=== PATIENT | male | born 1960 | race Caucasian/White ===

== ENCOUNTER 2018-06-10 04:33 | Inpatient (IN) ==
[2018-06-10] MEDS ORDERED: LIDOCAINE W/ SODIUM BICARB 0.5 ML SYR SUBD ONE (06:00)
[2018-06-10] MEDS ORDERED: Lactated Ringers 1,000 ML PRIMARY IV ONE ×3 (06:00→12:39)
[2018-06-10] MEDS ORDERED: Nasal Sanitizer POPSWAB ampule 3 AMP (Nozin) PREOP DOSE ENOS SCH (06:00)
[2018-06-10] MEDS ORDERED: ceFAZolin Inj 2gm (Premix) 2 GM/50 ML BAG IV ONE ×2 (06:00→06:04)
[2018-06-10] MEDS ORDERED: Vancomycin Inj 1gm vial ONE (06:04)
[2018-06-10] MEDS ORDERED: LIDOCAINE W/ SODIUM BICARB 0.5 ML SYR ONE (06:04)
[2018-06-10] MEDS ORDERED: Sodium Chloride 0.9% 250 ML ONE (06:05)
[2018-06-10 06:20] LABS: BILIRUBIN,URINE NEGATIVE (NEG); CLARITY,URINE CLEAR (CLEAR); COLOR,URINE YELLOW (Y); GLUCOSE, URINE (UA) NEGATIVE (NEG); OCCULT BLOOD,URINE NEGATIVE (NEG); PROTEIN,URINE NEGATIVE (NEG); UROBILINOGEN,URINE 0.2 EU/dL (0.2)
[2018-06-10 06:22] LABS: URINE SAMPLE TYPE CLEAN CATCH URINE
[2018-06-10] MEDS ORDERED: HYDROmorphone 2 MG/1 ML ONE ×4 (07:13→15:06)
[2018-06-10] MEDS ORDERED: Sodium Chloride 0.9% vial 10 ML ONE ×3 (07:32→13:32)
[2018-06-10] MEDS ORDERED: BACITRACIN 50,000 UNIT VIAL IRRIG ONE ×3 (07:32→13:32)
[2018-06-10] MEDS ORDERED: KETAMINE HCL 100 MG/2 ML SYRINGE IV ONE (07:34)
[2018-06-10] MEDS ORDERED: REMIFENTANIL 1 MG/1 ML IV ONE (07:34)
[2018-06-10] MEDS ORDERED: fentaNYL Inj 100 MCG/2 ML VIAL ONE ×2 (07:35→14:38)
[2018-06-10] MEDS ORDERED: MIDAZOLAM HCL 2 MG/2 ML VIAL ONE (07:35)
[2018-06-10] MEDS ORDERED: Propofol 1,000 MG/100 ML VIAL IV ONE ×4 (07:35→12:23)
[2018-06-10] MEDS ORDERED: REMIFENTANIL HCL 2 MG VIAL IV ONE ×3 (07:35→13:00)
[2018-06-10] MEDS ORDERED: BUPIVACAINE 0.25% W/ EPI - 10 ML VIAL ONE (07:36)
[2018-06-10] MEDS ORDERED: LIDOCAINE HCL 2 % 10 ML JELLY URO-JECT TOPICAL ONE ×2 (08:08→08:20)
[2018-06-10] MEDS ORDERED: TRANEXAMIC ACID 1,000 MG / 10 ML VIAL ONE (10:45)
[2018-06-10] MEDS ORDERED: PROPOFOL 10 MG/1 ML (200 MG/20 ML) VIAL IV ONE (13:15)
[2018-06-10] MEDS ORDERED: PROMETHAZINE 25 MG/1 ML VIAL IM PRN ×2 (14:19→15:42)
[2018-06-10] MEDS: HYDROmorphone 2 MG/1 ML IVP PRN ×8 (14:19→15:12)
[2018-06-10] MEDS ORDERED: ONDANSETRON 4 MG/2 ML VIAL IVP PRN ×2 (14:19→15:42)
[2018-06-10] MEDS ORDERED: LIDOCAINE W/ SODIUM BICARB 0.5 ML SYR SUBD PRN (14:19)
--- NOTE | 2018-06-10 14:20 | CRNA.PROGR ---
Anesthesia Recovery Phase I - Post Anesthesia Evaluation Patient's Condition on Arrival in Phase I: Stable Pain Level: 5
--- NOTE | 2018-06-10 14:20 | CRNA.PROGR ---
Anesthesia Time - Procedure/Recovery Time Start Date: 06/10/18 End Date: 06/10/18 Anesthesia : Time In: 07:55 Anesthesia : Time Out: 14:13 Anesthesia : Total Time: 378 - Total Anesthesia Time Total Anesthesia Time (minutes): 378 - Other Weight: 104.326 kg Height: 5 ft 10 in Body Mass Index (BMI): 33.0 Physical Status: P3 Anesthesia Type: General Anesthesia : ET
[2018-06-10] MEDS ORDERED: Lactated Ringers 1,000 ML PRIMARY IV SCH (14:30)
[2018-06-10] MEDS: fentaNYL Inj 100 MCG/2 ML VIAL IVP PRN ×2 (14:37→14:42)
[2018-06-10] MEDS ORDERED: BISACODYL 5 MG TABLET PO PRN (15:42)
[2018-06-10] MEDS ORDERED: Vancomycin-PHA to Dose IV SCH (15:42)
[2018-06-10] MEDS ORDERED: Prochlorperazine Edisylate Inj 10mg/2ml vial IVP PRN (15:42)
[2018-06-10] MEDS ORDERED: Metoclopramide Inj 10 MG/2 ML VIAL IVP PRN (15:42)
[2018-06-10] MEDS ORDERED: oxyCODONE/APAP 7.5/325 Tab 1 TAB TAB PO PRN (15:42)
[2018-06-10] MEDS ORDERED: Ondansetron ODT Tab 4 MG TAB PO PRN (15:42)
[2018-06-10] MEDS ORDERED: Fleet Enema 133ml RECTAL PRN (15:42)
[2018-06-10] MEDS ORDERED: HYDROcodone-APAP 7.5 MG-325 MG TABLET PO PRN (15:42)
[2018-06-10] MEDS ORDERED: oxyCODONE-ACETAMINOPHEN 5-325 TAB PO PRN (15:42)
[2018-06-10] MEDS ORDERED: MAGNESIUM CITRATE 296 ML SOLUTION PO PRN (15:42)
[2018-06-10] MEDS ORDERED: DOCUSATE 100 MG CAPSULE PO PRN (15:42)
[2018-06-10] MEDS ORDERED: MAGNESIUM 400 MG/5 ML - 30 ML (MILK OF MAGNESIA) PO PRN (15:42)
[2018-06-10] MEDS ORDERED: HYDROcodone-APAP 5 MG -325 MG TABLET PO PRN (15:42)
[2018-06-10] MEDS: ceFAZolin Inj 1 GM in Sodium Chloride 0.9% 100 ML IV SCH (16:51)
[2018-06-10] MEDS: HYDROcodone-APAP 10 MG-325 MG TABLET PO PRN ×2 (16:51→20:50)
--- NOTE | 2018-06-10 18:31 | GEN.OPNOTE ---
Operative Note Surgery Date: 06/10/18 Preoperative Diagnosis: 1. Chronic neck pain status post a fall. 2. Multilevel cervical degenerative disc disease advanced at C5-6, C6-7 and C7-T1. 3. Multilevel cervical spondylosis advanced C3-4 on the right, C4-5 on the left, moderate in degree at C5-6 and C6-7 bilaterally and advanced C7-T1. bilaterally. 4. Prominent diffuse disc/osteophyte complexes C3-4, C4-5, and C5-6. 5. Central canal stenosis C3-4, C4-5, and C5-6. 6. Bilateral C3-4, C4- 5, and C5-6 neuroforaminal stenosis. 7. Loss of normal cervical lordosis. Postoperative Diagnosis: 1. Chronic neck pain status post a fall. 2. Multilevel cervical degenerative disc disease advanced at C5-6, C6-7 and C7-T1. 3. Multilevel cervical spondylosis advanced C3-4 on the right, C4-5 on the left, moderate in degree at C5-6 and C6-7 bilaterally and advanced C7-T1. bilaterally. 4. Prominent diffuse disc/osteophyte complexes C3-4, C4-5, and C5-6. 5. Central canal stenosis C3-4, C4-5, and C5-6. 6. Bilateral C3-4, C4- 5, and C5-6 neuroforaminal stenosis. 7. Loss of normal cervical lordosis. Procedure: 1.) Arthrodesis, anterior cervical, with discectomy, osteophytectomy, and foraminotomies bilaterally with removal of the posterior longitudinal liga ment, and disc space preparation for fusion of the interspace, C3-4. (CPT code: 38617). 2.) Arthrodesis, anterior cervical, with discectomy, osteophytectomy and foraminotomies bilaterally with removal of the posterior longitudinal ligament with decompression of central canal and bilateral neuroforaminal stenosis and disc space preparation for fusion of the interspace, C4-5. (CPT code: 80661). 3.) Arthrodesis, anterior cervical, with discectomy, osteophytectomy and foraminotomies bilaterally with removal of the posterior longitudinal ligament with decompression of central canal and bilateral neuroforaminal stenosis and disc space preparation for fusion of the interspace, C5-6. (CPT code: 00168). 4.) Insertion of a 7mm x 14mm x 17mm 6-degree lordotic Alcon Tritanium C titanium anterior cervical cage filled in the center with Alcon BIO DBM Putty (allograft) into the C3-4 interspace for fusion of the C3-4 interspace. (CPT code: 70799). 5.) Insertion of a 8mm x 14mm x 17mm 6-degree lordotic Alcon Tritanium C titanium anterior cervical cage filled in the center with Alcon BIO DBM Putty (allograft) into the C4-5 interspace for fusion of the C4-5 interspace. (CPT code: 54584). 6.) Insertion of a 7mm x 14mm x 17mm 6-degree lordotic [place] Tritanium C titanium anterior cervical cage filled in the center with [place] BIO DBM Putty (allograft) into the C5-6 interspace for fusion of the C5-6 interspace. (CPT code: 42229). 7.) Anterior cervical plating, C3-7 using a 4 level, 10 hole, 72 mm [place] Aviator titanium anterior cervical plate affixed to the C3 vertebral body with 4.0 mm x 16 mm variable angle titanium anterior cervical screws, to the C4 vertebral body using 4.0 mm x 14 mm variable angle titanium anterior cervical screws, to the C5 vertebral body using a 4.0 mm x 14 mm variable angle titanium anterior cervical screws, and to the C7 vertebral body using 4.0 mm x 16 mm fixed angle titanium anterior cervical screws. (CPT code: 33802). 8.) Use of 5 cc of [place] BIO DBM Putty (implantable allograft) for filling of the anterior cervical cages. (CPT code: 99283). 9.) Use of the operative microscope for the microsurgical techniques used for the C3-4, C4-5, and C5-6 discectomies and foraminotomies. (CPT code: 83890). 10.) Use of intra-operative fluoroscopy for location of the correct surgical levels and for confirmation of the final position of the intervertebral cages and final confirmation of the position of the anterior cervical hardware elements. 11.) Use of intra-operative neuromonitoring including EMG's, SSEP's, and MEP's. Surgeon: Raheem Hodgson MD Locomotive Boilermaker: JAZZ Kaur Anesthesia Provider: Mack Rocha CRNA Anesthesia Type: General Estimated Blood Loss (mL): 100 Fluids: See anesthesia record Pathology: None Indications: Mr. Mathews is a 57-year-old gentleman well known to me from my previous [facility] practice. Mr. Mathews has had chronic low back pain for many years and has undergone several back surgeries that I performed as well as a dorsal column stimulator placement that Dr. Shabazz performed. Mr. Mathews fell off a ladder on the beginning of February. He states that he landed on his back. He did not go to the emergency department to be evaluated. Since this fall, he continues to have neck pain, mid back pain and low back pain. He had cervical radiographic images that demonstrated marked degenerative changes of the cervical spine, but with no evidence of acute injury or fracture. Mr. Mathews had a cervical myelogram with post myelogram CT that demonstrated multilevel cervical degenerative disc disease most advanced at C5-6, C6-7 and C7-T1. The study demonstrated multilevel cervical spondylosis with marked facet arthropathy and hypertrophy at C3-4 on the right, C4-5 on the left and then to a lesser extent at C5-6 and C6-7 bilaterally and severe facet arthropathy at C7- T1. Since Mr. Mathews's symptoms had failed expectant management and non-operative therapies, we had discussed the option of proceeding with a staged anterior/posterior cervical procedure because of his extensive degenerative changes. We discussed proceeding with a C3-4, C4-5, C5-6, and possible C6-7 anterior cervical discectomy and fusion followed by a C3- T3 posterior cervical instrumented fusion. He wished to proceed with the surgical procedure. Findings: 1.) Extensive disc/osteophyte complexes C3-4, C4-5, and C5-6. 2.) Central canal and bilateral lateral recess stenosis C3-4, C4-5, C5-6. 3.) Completely collapsed C6-7 disc interspace. Complications: None Operative Summary: Mr. Mathews was met in the preoperative area. His surgical history and physical in his chart was reviewed. We reviewed the procedure to be performed and we were in agreement on the procedure to be performed and this matched what was written on the patient's consent form. Any questions that Mr. Mathews had were answered before he was taken back to the operating room suite. Mr. Mathews was brought back to the operating room suite. He was moved over onto the surgical bed in supine position. General anesthesia was induced by the anesthesia staff and he was intubated by the anesthesia staff. His head was placed on a gel ring and rolled up surgical towels were placed in the intrascapular area and under his shoulders bilaterally. A Thomson catheter was placed in his bladder for the procedure. He had pneumatic compression hose placed on his lower legs bilaterally. His arms were gently tucked at his sides. All bony prominences were well padded. His Thomson catheter was checked to be free from kinks. His pneumatic compression hose were attached to a pneumatic compression devise. The C-arm fluoroscopy unit was used to help localize the skin incision for the approach to the intended surgical level. The skin was marked along the medial border of the sternocleidomastoid muscle with a skin marker. Mr. Mathews was prepped and draped in the usual and standard fashion. He was given 2 g of Ancef and a gram of vancomycin IV for perioperative antibiosis. He was given 10 mg of Decadron IV. A standard surgical timeout was performed identifying the correct patient, the correct procedure, and the correct equipment being available for the procedure. The intended skin incision was injected subcutaneously with quarter percent Marcaine with 1 in 200,000 epinephrine. The skin was incised with a 10 blade scalpel and all dermal and superficial bleeding points controlled with bipolar cautery. Dissection was continued down through the subcutaneous tissue to the level of the platysma muscle. The platysma muscle was incised with the Metzenbaum scissors in the direction of the skin incision. This allowed identification the medial border of the sternocleidomastoid muscle. Further dissection identified the omohyoid muscle which was circumferentially dissected out, tagged with two 0-Silk suture and then cut with a Metzenbaum scissors with the muscle stumps retracted with snaps attached to the sutures. Continued dissection was performed medial to the sternocleidomastoid muscle in both a sharp and blunt fashion down to the pre-vertebral fascia. The carotid artery was palpated to be lateral to the dissection plane. Cloward hand-held retractors were used to retract and protect the soft tissues while the prevertebral fascia was dissected with a Kitner instrument. Once a disc space became exposed a bent spinal needle was placed into the disc space and the level was localized as the C4-5 level with lateral fluoroscopy. Continued dissection of the prevertebral fascia was performed exposing the C3, C4, C5, C6, and C7 vertebral bodies. The medial border of the longus coli muscle was dissected with Bovie cautery with insulated tip turned down to a low setting from C3-C7 bilaterally. The hand-held Cloward retractors were then replaced with the Team Member self-retaining retractor system which was first placed at the C3-4 level to expose this level and protect the soft tissues at this level. A 14 mm distraction pin was placed into the C3 vertebral body and another was placed into the C4 vertebral body. The operative microscope was brought into the surgical field and used for microsurgical techniques used for the C3-4 discectomy. An annulotomy was performed with a 15 blade scalpel and disc material was removed with a pituitary rongeur. Additional disc and cartilaginous endplate was loosened in the disc space using a small straight curette with the fragments being removed with a pituitary rongeur. The high-speed [x+1] Donovan drill with a matchstick bit was used to perform arthrodesis/decortication of the C3 and C4 endplates preparing the endplates for fusion. The same drill with the same bit was used to drill away the prominent diffuse osteophytes along the posterior inferior aspect of the C3 vertebral body and the posterior superior aspect of C4 vertebral body as well as the uncovertebral joints bilaterally which were hypertrophied bilaterally. Foraminotomies were performed bilaterally with the same drill with same bit. A nerve hook was used to define the plane between the posterior longitudinal ligament and the dura. The posterior longitudinal ligament was completely removed with small Kerrison punches. The same instruments were used to extend the foraminotomies bilaterally that had been started with the high-speed drill with a matchstick bit. Excellent decompression of the spinal canal, neuroforamen, and exiting nerve roots was assured both by visual inspection as well as by palpation with a nerve hook underneath the vertebral bodies and out the neuroforamen bilaterally. The interspace was irrigated with bacitracin irrigation. FloSeal hemostatic agent was placed over all exposed dural elements. The interspace was sized the appropriate size anterior cervical cage. A 7 mm x 14 mm x 17 mm 6-degree lordotic Tritanium C titanium anterior cervical cage was selected and filled in the center with [place] BIO DBM Putty (implantable allograft) and then inserted into the C3-4 interspace with the care management specialist. The cage was gently countersunk with a bone tamp and mallet. The cage obtained good purchase between the C3 and C4 endplates. The final position of the cage was confirmed with lateral fluoroscopy. The C3 Rosalia distraction pin was removed and bony bleeding was controlled with FloSeal and a surgical teo. The Team Member self-retaining retractor system was removed and placed across the C4-5 level for the exposure this level and the protection of the soft tissues at this level. The Rosalia distraction pin was placed into the C5 vertebral body. The operative microscope was used for this microsurgical techniques used for the C4-5 discectomy. An annulotomy was performed with a 15 blade scalpel and disc material was removed with a pituitary rongeur. Additional disc and cartilaginous endplate was loosened in the disc space using a small straight curette with the fragments being removed with a pituitary rongeur. The high- speed [x+1] Donovan drill with a matchstick bit was used to perform arthrodesis/decortication of the C4 and C5 endplates preparing the endplates for fusion. The same drill with the same bit was used to drill away with diffuse, prominent osteophytes along the posterior inferior aspect of the C4 vertebral body and the posterior superior aspect of the C5 vertebral body as well as to drill away the uncovertebral joint hypertrophy bilaterally. Foraminotomies were performed bilaterally with the same drill with the same bit. A nerve hook was used to define the plane between the posterior longitudinal ligament and the dura. The posterior longitudinal ligament was completely removed with small Kerrison punches. The same instruments were used to extend the foraminotomies bilaterally that had been started with the high-speed drill with a matchstick bit. Excellent decompression of the spinal canal, neuroforamen, and exiting nerve roots was assured both by visual inspection as well as by palpation with a nerve hook underneath the vertebral bodies and out the neuroforamen bilaterally. The interspace was irrigated with bacitracin irrigation. FloSeal hemostatic agent was placed over all exposed dural elements. The interspace was sized the appropriate size anterior cervical cage. A 8 mm x 14 mm x 17 mm 6-degree Alcon Tritanium C titanium anterior cervical cage was selected and filled in the center with [place] BIO DBM Putty (implantable allograft) and then inserted into the C4-5 interspace with the i nserter. The cage was gently countersunk with a bone tamp and mallet. The cage obtained good purchase between the C4 and C5 endplates. The final position of the cage was confirmed with lateral fluoroscopy. The C4 Rosalia distraction pin was removed and bony bleeding was controlled with FloSeal and a surgical teo. The Team Member self-retaining retractor system was removed and placed across the C5-6 level for the exposure this level and the protection of the soft tissues at this level. The Rosalia distraction pin was placed into the C6 vertebral body. The operative microscope was used for this microsurgical techniques used for the C5-6 discectomy. An annulotomy was performed with a 15 blade scalpel and disc material was removed with a pituitary rongeur. Because of the degree of disc space collapse at this level the high-speed [x+1] Donovan drill with a matchstick bit was used to perform the remainder of the discectomy at this level as well as to arthrodes/decorticate the C5 and C6 endplates preparing the endplates for fusion. The same drill with the same bit was used to drill away with diffuse, very prominent osteophytes along the posterior inferior aspect of the C5 vertebral body and the posterior superior aspect of the C6 vertebral body as well as to drill away the uncovertebral joint hypertrophy bilaterally. Foraminotomies were performed bilaterally with the same drill with the same bit. At this level the posterior aspect of the annulus which was partially calcified and adherent to the posterior longitudinal ligament was tediously dissected from the ligament. On attempts to define a plane between the ligament and the dura, they as well appeared to be adherent to each other as well with no plane being able to be established despite multiple careful attempts. It was decided to leave the thinned ligament without further attempts to try to remove it as at this point with all of the disc and partially calcified annulus removed the canal appeared to be very well decompressed despite leaving some ligament. This was assured by visual inspection as well as by palpation with a nerve hook underneath the vertebral bodies and out the neuroforamen bilaterally. The interspace was irrigated with bacitracin irrigation. FloSeal hemostatic agent was placed over all exposed dural elements. The interspace was sized the appropriate size anterior cervical cage. A 7 mm x 14 mm x 17 mm 6-degree [place] Tritanium C titanium anterior cervical cage was selected and filled in the center with Alcon BIO DBM Putty (allograft) and then inserted into the C5-6 interspace with the care management specialist. The cage was gently countersunk with a bone tamp and mallet. The cage obtained good purchase between the C5 and C6 endplates. The final position of the cage was confirmed with lateral fluoroscopy. The Rosalia distraction pins in the C5 vertebral body was removed. Bony bleeding was controlled FloSeal and surgical patties. Hand held retractors were used and the C6-7 level was inspected. There was a large anterior osteophyte complex across this level that was removed with a large Leksell rongeur. Upon inspection of the interspace at this level it was completely collapsed with the endplates apposed. Re-inspection of the imaging demonstrated this level to be fusing across the facet joint on the left. It was decided at this point not try to recreate a disc space that essentially no longer existed, but it was decided to plate across the C6-7 interspace to provide better anterior rigidity anteriorly with the plan of still fusing and instrumenting this level posteriorly in the second stage of the procedure. The Team Member self-retaining retractor system was removed and placed in the center portion of the surgical dissection to provide the proper exposure needed for the instrumentation portion of the procedure. Any remaining C3, C4, C5, C6, and C7 anterior osteophytes were removed with the large Leksell rongeur as well as with the high speed drill with the matchstick bit. The appropriate size anterior cervical plate was selected both by visual inspection as well as by lateral fluoroscopy. A 4 level, 10 hole, 72 mm Alcon Aviator titanium anterior cervical plate was selected and affixed to the C3 vertebral body using 4.0 mm x 16 mm variable angle titanium anterior cervical screws, and to the C4 and C5 vertebral bodies using 4.0 mm x 14 mm variable angle titanium anterior cervical screws, and to the C7 vertebral body using 4.0 mm x 16 mm fixed angle titanium anterior cervical screws. No screws were able to be placed into the C6 vertebral body secondary the the screw holes at this level being directly over the C5-6 cage. All screws placed obtained good purchase in the vertebral body bone. The locking mechanism was then deployed at each level and visual inspection confirmed that the locking mechanism deployed across each of the screw heads at each level bilaterally. The Team Member self- retaining retractor system was removed from the surgical site. Final AP and lateral fluoroscopic images were obtained. The goddard of the dissection plane were inspected for any bleeding points. Any identified were coagulated with bipolar cautery. The surgical site was copiously irrigated with bacitracin irrigation allowing the irrigant to sit to again inspect for any bleeding points with none identified. A medium FRANCESCO drain was placed into the surgical site. The closure portion of the procedure was begun. The omohyoid muscle was re-approximated by the 0-Silk suture attached to the muscle stumps. The platysmal muscle was reapproximated with 3-0 Vicryl suture in an interrupted fashion. The dermis and superficial subcutaneous tissue was reapproximated with 3-0 Vicryl suture in an inverted interrupted fashion. The incision was cleansed with a bacitracin soaked sponge and dried with a sterile dry sponge. Steri-Strips were placed across the incision. The incision was dressed with a Covaderm dressing. The surgical drain was secured with suture. The drain site was dressed. All surgical drapes removed from Mr. Mathews. He was carefully moved over onto the PACU stretcher. He was awoken and extubated by the anesthesia staff. He was taken to the recovery room in stable condition. All surgical counts reported as correct by the scrub and circulating personnel. A physicians bacteriology research assistant, Ms. Michelle Khan PA-C, assisted with the procedure including the exposure and closure portions of the procedure. She also provided irrigation and suctioning throughout the procedure.
[2018-06-10] MEDS: CYCLOBENZAPRINE 10 MG TABLET PO PRN (18:54)
[2018-06-10] MEDS ORDERED: GABAPENTIN 400 MG CAPSULE PO ONE (19:08)
--- NOTE | 2018-06-10 19:40 | NEURO.PROG ---
Subjective Post Op Day: 0 Pain Management: PO Thomson Catheter: Yes Diet: Controlled carbohydrate Ambulating: Yes Additional Details: Awake and alert in med/surg room. Complaint of post-surgical pain. No complaint of any new arm symptoms. Can raise arms and place hands on head easily and can raise hands and arms straight up in the air. PLAN: 1.) Continue post-operative antibiotics. 2.) Continue post-operative pain control. 3.) Advance diet. 4.) Mobilize. Objective : Data - Vital Signs Vital Signs and I&O: Vital Signs - Last Taken Temperature 97.9 F 06/10/18 18:20 Pulse Rate 94 06/10/18 18:20 Respiratory Rate 12 06/10/18 18:20 Blood Pressure 127/85 06/10/18 18:20 Pulse Ox 95 06/10/18 18:20 Intake and Output (24hr x 4 totals) 06/08/18 06/09/18 06/10/18 06/11/18 05:59 05:59 05:59 05:59 Intake Total 3050 / 3050 Output Total 2975 / 2975 Balance 75 / 75
--- NOTE | 2018-06-10 20:36 | PDOC ---
HPI - History of Present Illness Date of Service: 06/10/18 Time of Service: 20:33 Chief Complaint: Neck pain History of Present Illness: This very pleasant 57-year-old male with prior history of diabetes resolved post gastric bypass 5 years ago, GERD, and chronic pain syndrome with neck and back pain. He had an accident in February of this year and his neck pain has been significantly exacerbated. Had significant degenerative changes in the neck, and presented today for an ACDF performed by Dr. Hodgson. See his surgical note regarding the procedure performed. Postoperatively, the patient denies chest pain, shortness breath, nausea or vomiting. His pain is been somewhat difficult to control. There've been no exacerbations of medical issues. He'll be doing a posterior approach for C3-T3 fusion on 06/12/2018. He tells me in terms of his gastric bypass that he is on a multivitamin daily and that is B12 level recently checked out okay. Past Medical History Medical History: 1. chronic neck and back pain. 2. DMII. 3. s/p gastric bypass. 4. GERD Surgical History: 1. lumbar surgery. 2. gastric bypass. 3. Spinal nerve stimulator. Pertinent Family History: Significant for diabetes and heart disease in his mother who passed on from that. Father still alive healthy. Past Social History: Hx of smoking, occasional alcohol, cannot work and is disabled. . Has 12 children, all of whom he states are healthy. Lives in [place], [place]. Tobacco Use: Former Smoker In the Past 12 Months, Have Used or Abuse Any of the Following Substance: None Alcohol Use: Occasionally Medication / Allergies Home Medications: Home Medications Medication Instructions Recorded Confirmed cyclobenzaprine 10 mg tablet 10 mg PO TID 02/19/18 06/10/18 gabapentin 400 mg capsule 400 mg PO QDAY 02/19/18 06/10/18 hydrocodone 10 mg-acetaminophen 1 tab PO Q4-6H 02/19/18 06/10/18 325 mg tablet fluoxetine 20 mg capsule 20 mg PO QDAY 05/28/18 06/10/18 Dexlansoprazole [Dexilant] 60 mg PO DAILY 06/07/18 06/10/18 Multivitamin [Multi-Vitamin Daily] 1 tab PO DAILY 06/07/18 06/10/18 Oxycodone Myristate [Xtampza ER] 27 mg PO BID 06/07/18 06/10/18 Allergies/Adverse Reactions: Allergies Allergy/AdvReac Type Severity Reaction Status Date / Time aspirin Allergy Intermediate Hives Verified 06/10/18 06:24 NSAIDS (Non-Steroidal Allergy Intermediate Other : Verified 06/10/18 06:24 Anti-Inflamma See Comment tramadol Allergy Intermediate Hives Verified 06/10/18 06:24 Review of Systems - Respiratory Respiratory: REPORTS: Negative System Review - Cardiovascular Cardiovascular: REPORTS: Negative System Review - Gastrointestinal Gastrointestinal / Abdominal: REPORTS: Negative System Review - Genitourinary Genitourinary: REPORTS: Negative System Review Exam - Vitals Vital Signs: Vital Signs Temperature 97.7 F Temperature Source Temporal Artery Scan Pulse Rate [Pulse Oximeter 91 Right] Pulse Rate [Pulse Oximeter] 109 Pulse Rate 93 Respiratory Rate 14 Blood Pressure [Left Arm] 128/83 Blood Pressure 124/82 Pulse Ox 92 Oxygen Flow Rate 1.5 Oxygen Delivery Method Nasal Cannula Height 5 ft 10 in Weight 230 lb - General General Appearance: No Acute Distress, Cooperative - Head Head Exam: Normal Inspection, Normocephalic, Atraumatic - Eye Eye Exam: POSITIVE: No Scleral Icterus - ENT ENT Exam: POSITIVE: Mucous Membranes Moist - Neck Neck Exam: JVP is not Raised - Respiratory Respiratory Exam: POSITIVE: Clear to Auscultation - Bilaterally, Breathing Non Labored - Cardiovascular Cardiovascular Exam: POSITIVE: RRR, No Murmur, No Clicks, No Gallops, No Rubs, No JVD - GI/Abdominal GI/Abdominal Exam: POSITIVE: Normal Bowel Sounds, Non Tender, Non Distended, Soft - Rectal Rectal Exam: POSITIVE: Deferred - External Exam: POSITIVE: Deferred Exam: POSITIVE: Deferred - Extremities Extremities Exam: POSITIVE: No Clubbing Present, No Edema Present, No Cyanosis Present - Neurological Neurological Exam: POSITIVE: Alert, Oriented x 3, No Facial Droop, Speech Intact / Clear, Moves All Extremities Equally Results - Labs Additional Lab Results: I did review urinalysis and it is normal. I do not have labs from preoperative workup. Assessment and Plan - Patient Problems (1) DMII (diabetes mellitus, type 2) Current Visit: Yes Status: Acute Code(s): E11.9 - Type 2 diabetes mellitus without complications Qualifiers: Diabetes mellitus technician terminal and repeater insulin use: without technician terminal and repeater use Diabetes mellitus complication status: without complication Qualified Code(s): E11.9 - Type 2 diabetes mellitus without complications (2) Chronic neck and back pain Current Visit: No Status: Chronic Code(s): M54.2 - Cervicalgia; M54.9 - Dorsalgia, unspecified; G89.29 - Other chronic pain (3) S/P gastric bypass Current Visit: Yes Status: Acute Code(s): Z98.84 - Bariatric surgery status (4) S/P cervical spinal fusion Current Visit: Yes Status: Acute Code(s): Z98.1 - Arthrodesis status - Assessment / Plan Additional Assessment/Plan Details: patient has been off of medications for his diabetes since his gastric bypass. He used to be on insulin prior to that. Pain management as per neurosurgery team and Dr. Hodgson. I would recommend the patient remain on his acid betzy and also on Neurontin. PT and OT. Posterior approach anticipated on 06/12/2018. At this point, the most recent hemoglobin A1c when I spoke with Michelle Khan and she stated it is some around 5.2 or so and I would expect that given the gastric bypass. I do not think it's worthwhile to recheck that during this hospital stay. The patient stated to me as B12 is at his normal level so I think it's reasonable to put the patient multivitamin and B12 supplement while here in the hospital. No need to check the labs during this and we can defer to his primary physician to resume that laboratory monitoring upon discharge. Thank you for this consult. Will be our pleasure as the hospitalist service to assist in advice and management of medical issues during the hospital stay.
[2018-06-10] MEDS: GABAPENTIN 300 MG CAPSULE PO SCH (20:50)
[2018-06-10] MEDS: MORPHINE SULFATE 2 MG/1 ML IVP PRN (22:29)
[2018-06-11] MEDS: oxyCODONE/APAP 10/325 Tab 1 EACH TAB PO PRN ×3 (01:06→09:12)
[2018-06-11] MEDS: ceFAZolin Inj 1 GM in Sodium Chloride 0.9% 100 ML IV SCH (01:07)
[2018-06-11] MEDS: MORPHINE SULFATE 2 MG/1 ML IVP PRN ×6 (02:07→22:55)
[2018-06-11 04:24] LABS: BASOPHILS # (AUTO) 0.02 10*3/UL; BASOPHILS % (AUTO) 0.4 % (0-1); EOSINOPHILS # (AUTO) 0.18 10*3/UL; EOSINOPHILS % (AUTO) 3.5 % (0-8); Hematocrit [HCT] 32.4 % (42.0-52.0); Hemoglobin [HGB] 10.4 g/dL (14.0-18.0); LYMPHOCYTES # (AUTO) 1.05 10*3/uL; MEAN CORPUSCULAR HGB CONC 32.1 g/dL (33-37); MEAN CORPUSCULAR VOLUME 87.1 FL (80-90); MEAN PLATELET VOLUME 8.3 FL (7.4-12.2); MONOCYTES # (AUTO) 0.27 10*3/UL (0.3-0.8); MONOCYTES % (AUTO) 5.2 % (5-15); NEUTROPHILS # (AUTO) 3.62 10*3/UL; NEUTROPHILS % (AUTO) 70.3 % (50-80); RED BLOOD COUNT 3.72 10^6/uL (4.70-6.10)
[2018-06-11 04:26] LABS: PLATELET MORPHOLOGY COMMENT NORMAL MORPHOLOGY (NORM); RBC MORPHOLOGY COMMENT NORMAL MORPHOLOGY (NORM); WBC MORPHOLOGY COMMENT NORMAL MORPHOLOGY (NORM)
[2018-06-11 04:33] LABS: BLOOD UREA NITROGEN 9 mg/dL (7-22); BUN/CREATININE RATIO 11.25 (6-20)
--- NOTE | 2018-06-11 06:35 | NEURO.PROG ---
Subjective Post Op Day: 1 Pain Management: PO Thomson Catheter: No Diet: Regular Ambulating: Yes Additional Details: On rounds this morning with Dr. Hodgson Mr. Mathews was alert and moving all extremies. He says that his anterior neck pain is less. He has good bilateral sponge hooker strength and bilateral arm raises. He says he wants to proceed with the posterior cervical fusion tomorrow because the pain and grinding in his neck persists. He is afebrile and VSS. His neck incision is dry and intact. Drainage in the hemovac has been 70ml since surgery. Will plan to recheck drainage this afternoon and make a plan at that time on discontinuing the drain. He has been up in the room multiple times without difficulty Plan is NPO after midnight and the operating room in AM for Posterior Cervical Fusion. Objective : Data - Labs CBC and BMP: 06/11/18 04:16 06/11/18 04:16 - Vital Signs Vital Signs and I&O: Vital Signs - Last Taken Temperature 97.5 F 06/11/18 04:45 Pulse Rate 96 06/11/18 04:45 Respiratory Rate 16 06/11/18 00:38 Blood Pressure 165/82 06/11/18 04:45 Pulse Ox 94 06/11/18 05:03 Intake and Output (24hr x 4 totals) 06/09/18 06/10/18 06/11/18 06/12/18 05:59 05:59 05:59 05:59 Intake Total 5156 / 5156 Output Total 3545 / 3545 Balance 1611 / 1611
[2018-06-11] MEDS ORDERED: PANTOPRAZOLE 40 MG TABLET PO SCH (07:00)
[2018-06-11] MEDS ORDERED: GABAPENTIN 400 MG CAPSULE PO SCH (09:00)
[2018-06-11] MEDS: GABAPENTIN 300 MG CAPSULE PO SCH ×3 (09:11→20:57)
[2018-06-11] MEDS: CYANOCOBALAMIN (VITAMIN B-12) 1,000 MCG TABLET.ER PO SCH (09:11)
[2018-06-11] MEDS: Multivitamin Tab 1 TAB PO SCH (09:12)
[2018-06-11] MEDS: FLUoxetine 20 MG CAPSULE PO SCH (09:12)
--- NOTE | 2018-06-11 10:44 | PDOC(PROG) ---
Date of Service: 06/11/18 Time of Service: 10:40 Interval History: no chest pain, SOB, N/V posterior fusion tomorrow with neurosurgery pain in neck from ACDF controlled today. Objective : Data - Labs CBC and BMP: 06/11/18 04:16 06/11/18 04:16 Objective : Exam - General General Appearance: No Acute Distress, Cooperative Additional General Exam Details: Vital Signs - Last Taken Temperature 98 F 06/11/18 07:09 Pulse Rate 78 06/11/18 07:09 Respiratory Rate 12 06/11/18 07:09 Blood Pressure 143/95 06/11/18 07:09 Pulse Ox 93 06/11/18 07:09 - Eye Eye Exam: No Scleral Icterus - ENT ENT Exam: Mucous Membranes Moist - Neck Neck Exam: JVP is not Raised - Respiratory Respiratory Exam: Clear to Auscultation - Bilaterally, Breathing Non Labored - Cardiovascular Cardiovascular Exam: RRR, No Murmur, No Clicks, No Gallops, No JVD - GI/Abdominal GI/Abdominal Exam: Normal Bowel Sounds, Non Tender, Non Distended, Soft - Extremities Extremities Exam: No Clubbing Present, No Edema Present, No Cyanosis Present - Neurological Neurological Exam: Alert, Oriented x 3, No Facial Droop, Speech Intact / Clear, Moves All Extremities Equally Assessment and Plan - Patient Problems (1) DMII (diabetes mellitus, type 2) Current Visit: Yes Status: Acute Code(s): E11.9 - Type 2 diabetes mellitus without complications Qualifiers: Diabetes mellitus track coach insulin use: without retirement use Diabetes mellitus complication status: without complication Qualified Code(s): E11.9 - Type 2 diabetes mellitus without complications (2) Chronic neck and back pain Current Visit: Yes Status: Chronic Code(s): M54.2 - Cervicalgia; M54.9 - Dorsalgia, unspecified; G89.29 - Other chronic pain (3) S/P gastric bypass Current Visit: Yes Status: Acute Code(s): Z98.84 - Bariatric surgery status (4) S/P cervical spinal fusion Current Visit: Yes Status: Acute Code(s): Z98.1 - Arthrodesis status - Assessment / Plan Additional Assessment/Plan Details: NPO post midnight IV fluids starting at midnight labs in AM
--- NOTE | 2018-06-11 11:29 | PT.PROG ---
Progress Note Progress Note: S. Patient stated that he is feeling pretty good and would like to go for a walk. O. Patient ambulated 200 feet around the nurses station and back to his room where he was left in bed. A. Patient tolerated ambulation well, he was able to ambulate with contact guard assist, however required min assist with bed mobility and sit to stand transfer. P. Continue POC.
[2018-06-11] MEDS: HYDROcodone-APAP 10 MG-325 MG TABLET PO PRN ×3 (13:06→20:57)
[2018-06-11] MEDS: PANTOPRAZOLE 40 MG TABLET PO SCH ×2 (13:10→16:58)
[2018-06-11] MEDS: CYCLOBENZAPRINE 10 MG TABLET PO PRN (15:22)
--- NOTE | 2018-06-11 16:07 | PT.PROG ---
Progress Note Progress Note: S. Patient stated that he is a little sore this afternoon, however agreed to go for a walk. O. Patient ambulated 250 feet around the nurses station and back to his room. where he was left in bed with alarm and call light. A. Patient tolerated ambulation well, he was able to ambulate with stand by guard assist. Patient would continue to benefit from skilled therapy to increase strength, endurance and safety. P. Continue POC.
[2018-06-11] MEDS: DIAZEPAM 10 MG/2 ML (5 MG/1 ML) CARPUJECT IVP PRN (17:51)
[2018-06-12] MEDS: Lactated Ringers 1,000 ML PRIMARY IV SCH ×3 (00:13→18:14)
[2018-06-12] MEDS: HYDROcodone-APAP 10 MG-325 MG TABLET PO PRN ×2 (00:29→04:46)
[2018-06-12] MEDS: MORPHINE SULFATE 2 MG/1 ML IVP PRN ×2 (02:59→23:14)
[2018-06-12] MEDS: DIAZEPAM 10 MG/2 ML (5 MG/1 ML) CARPUJECT IVP PRN ×2 (03:37→18:29)
[2018-06-12 05:19] LABS: BASOPHILS # (AUTO) 0.02 10*3/UL; BASOPHILS % (AUTO) 0.4 % (0-1); EOSINOPHILS # (AUTO) 0.18 10*3/UL; EOSINOPHILS % (AUTO) 3.5 % (0-8); Hematocrit [HCT] 32.8 % (42.0-52.0); Hemoglobin [HGB] 10.7 g/dL (14.0-18.0); LYMPHOCYTES # (AUTO) 1.15 10*3/uL; MEAN CORPUSCULAR HEMOGLOBIN 27.9 PG (27-31); MEAN CORPUSCULAR HGB CONC 32.6 g/dL (33-37); MEAN CORPUSCULAR VOLUME 85.6 FL (80-90); MEAN PLATELET VOLUME 9.2 FL (7.4-12.2); MONOCYTES # (AUTO) 0.46 10*3/UL (0.3-0.8); NEUTROPHILS # (AUTO) 3.32 10*3/UL; NEUTROPHILS % (AUTO) 64.7 % (50-80); RED BLOOD COUNT 3.83 10^6/uL (4.70-6.10)
[2018-06-12 05:28] LABS: PLATELET MORPHOLOGY COMMENT NORMAL MORPHOLOGY (NORM); RBC MORPHOLOGY COMMENT NORMAL MORPHOLOGY (NORM); WBC MORPHOLOGY COMMENT NORMAL MORPHOLOGY (NORM)
[2018-06-12 05:33] LABS: BLOOD UREA NITROGEN 7 mg/dL (7-22); BUN/CREATININE RATIO 11.66 (6-20)
[2018-06-12] MEDS ORDERED: Sodium Chloride 0.9% 250 ML ONE (06:30)
[2018-06-12] MEDS ORDERED: Vancomycin Inj 1gm vial ONE ×2 (06:30→06:58)
[2018-06-12] MEDS ORDERED: ceFAZolin Inj 2 GM in Sodium Chloride 0.9% 100 ML IV ONE (06:32)
[2018-06-12] MEDS ORDERED: Sodium Chloride 0.9% vial 50 ML ONE (06:57)
[2018-06-12] MEDS ORDERED: BUPIVACAINE 0.25% W/ EPI - 10 ML VIAL ONE (06:57)
[2018-06-12] MEDS ORDERED: Povidone-Iodine Ointment 28.35 gm ointment TOPICAL ONE (06:58)
[2018-06-12] MEDS ORDERED: Gentamicin Inj 40 MG/ML VIAL ONE (06:58)
[2018-06-12] MEDS ORDERED: BUPivacaine Inj 0.25% PF - 10ml vial ONE (06:58)
[2018-06-12] MEDS ORDERED: BACITRACIN 50,000 UNIT VIAL IRRIG ONE (06:58)
[2018-06-12] MEDS ORDERED: BUPivacaine Liposome/PF (Exparel) Inj 20ml vial INFIL ONE (06:59)
[2018-06-12] MEDS ORDERED: ceFAZolin Inj 2gm (Premix) 2 GM/50 ML BAG IV ONE ×2 (07:05→12:00)
[2018-06-12] MEDS ORDERED: Lactated Ringers 1,000 ML PRIMARY IV ONE ×2 (07:05→19:19)
[2018-06-12] MEDS ORDERED: fentaNYL Inj 250 MCG/5 ML VIAL ONE ×2 (07:33→17:40)
[2018-06-12] MEDS ORDERED: LIDOCAINE HCL 2 % 10 ML JELLY URO-JECT TOPICAL ONE (07:57)
[2018-06-12] MEDS ORDERED: Nasal Sanitizer POPSWAB ampule 3 AMP (Nozin) PREOP DOSE ENOS SCH (08:15)
[2018-06-12] MEDS ORDERED: HYDROmorphone 2 MG/1 ML ONE ×6 (09:06→17:47)
[2018-06-12] MEDS ORDERED: LIDOCAINE HCL 2 % 10 ML JELLY URO-JECT TOPICAL PRN ×3 (09:09→19:49)
[2018-06-12] MEDS ORDERED: TRANEXAMIC ACID 1,000 MG / 10 ML VIAL ONE (09:19)
[2018-06-12] MEDS ORDERED: DEXAMETHASONE PF 10 MG/1 ML VIAL ONE (10:09)
[2018-06-12] MEDS ORDERED: DIAZEPAM 10 MG/2 ML (5 MG/1 ML) CARPUJECT IVP SCH (11:58)
--- NOTE | 2018-06-12 12:23 | PTI REPORT ---
Thank you for the referral of Keith Mathews. He was seen on 06/10/18 for an inpatient evaluation status post cervical fusion. SUBJECTIVE: The patient is a 57-year-old male who underwent a cervical fusion earlier today. The patient does complain of neck pain but is asking to get up in order to use the bathroom. The patient's reports that they are from [place]. They have one step to get into their home and a step down into their dining room. The patient reports that he has not had any falls in the last three months but his does say that he has fallen a couple of times. The patient primarily uses a single point cane for ambulation and states that he is not normally on oxygen as he is on three liters at the time of our evaluation. PAST MEDICAL HISTORY: Past medical history can be found in the patient's medical record. OBJECTIVE FINDINGS: General observations: The patient is alert and oriented to setting upon PT arrival. The patient is on 3 liters of oxygen with oxygen saturation at 98% with a heart rate of 90 beats per minute. Supine blood pressure was 120/82. The patient does have a drain in place. The patient was fit for an [place] cervical collar. Bed mobility: The patient was able to transfer from a supine to seated edge of bed position with min assist x1. Once sitting up the patient denied any lightheadedness or dizziness. The patient was able to transfer back into bed with stand by assist x1 for safety. Transfers: The bed was raised and the patient transferred from a seated to standing position. The patient required contact guard assist x1 secondary to fair initial standing balance. Ambulation: Once the patient was able to regain his balance he was given his cane and required assist of one to ambulate to the bathroom x30 feet. The patient ambulated back to the bed with assist of one and a single point cane. Activities of daily living: The patient was able to perform toileting activity with stand by assist x1 due to his poor safety awareness. The patient transferred from sit to stand off of the toilet. He was able to do so with contact guard assist x1. ASSESSMENT: The patient has good rehab potential. Problem List: Patient is status post cervical fusion Short-Term Goals: To be met by discharge from inpatient: Patient will be able to transfer from bed to stand safely and independently. Patient will be able to ambulate at least 150 feet safely and independently with least restrictive assistive device. Patient will be able to ambulate up and down at least 5 stairs safely with least restrictive assistive device in order to return back home. Long-Term Goals: To be met following discharge from inpatient: Patient may be seen by outpatient physical therapy if deemed necessary by his surgeon. TREATMENT PLAN: Patient will be seen B.I.D during the week and one time per day over the weekend as an inpatient to address the above goals and objectives. INITIAL TREATMENT: Treatment today consisted of the initial evaluation and one unit of functional activity. Please see objective findings. Once the patient was back in bed, his oxygen was placed back on and he was left with nursing staff. JENNIFER
--- NOTE | 2018-06-12 14:19 | OTI REPORT ---
Thank you for the referral of Keith Mathews. He was seen on 06/11/18 for an occupational therapy inpatient evaluation status post cervical fusion. SUBJECTIVE: The patient is a 57-year-old male. The patient reports that he is doing decently well. He had just taken a shower. PAST MEDICAL HISTORY: Past medical history can be found in the patient's medical record. OBJECTIVE FINDINGS: Activities of daily living: The patient was able to don and doff socks independently. He reports that bending over does hurt and is not supposed to be bending over. The patient was issued a barge hand for increased independence at home and also to doff socks. The patient demonstrates enough flexibility in the knees and legs enough to pull his socks on over his foot. The patient required min assist to don his neck brace to get it even. Transfers: The patient completed functional transfers with stand by assist. The patient transferred from the chair to the bed. Bed mobility: The patient transferred into bed with verbal cues to follow his neck precautions. ASSESSMENT: The patient will be seen for OT initial evaluation only. TREATMENT PLAN: Patient will be discharged from OT services at this time. INITIAL TREATMENT: Treatment today consisted of the initial evaluation followed by the patient attempting dressing tasks and donning his neck brace. He was issued a barge hand and a bath sponge for increased independence at home. JENNIFER
[2018-06-12] MEDS ORDERED: Sodium Chloride 0.9% vial 10 ML ONE (15:02)
[2018-06-12] MEDS ORDERED: Hetastarch 6% + NS 500 ML IV ONE (15:28)
[2018-06-12] MEDS ORDERED: fentaNYL Inj 100 MCG/2 ML VIAL ONE ×2 (16:28→17:25)
[2018-06-12] MEDS ORDERED: KETOROLAC 30 MG/1 ML VIAL ONE (16:29)
--- NOTE | 2018-06-12 17:04 | CRNA.PROGR ---
Anesthesia Time - Procedure/Recovery Time Start Date: 06/12/18 End Date: 06/12/18 Anesthesia : Time In: 07:53 Anesthesia : Time Out: 17:02 Anesthesia : Total Time: 549 - Total Anesthesia Time Total Anesthesia Time (minutes): 549 - Other Weight: 102.682 kg Height: 5 ft 10 in Body Mass Index (BMI): 32.4 Physical Status: P3 Anesthesia Type: General Anesthesia : ET (stable at patient handoff pacu)
[2018-06-12] MEDS: DIAZEPAM 10 MG/2 ML (5 MG/1 ML) CARPUJECT IVP ONE ×2 (17:05→17:52)
[2018-06-12] MEDS ORDERED: DIAZEPAM 10 MG/2 ML (5 MG/1 ML) CARPUJECT ONE ×2 (17:05→18:30)
--- NOTE | 2018-06-12 17:05 | CRNA.PROGR ---
Anesthesia Recovery Phase I - Post Anesthesia Evaluation Patient's Condition on Arrival in Phase I: Stable (stable at patient handoff pacu/and DC to floor, [facility]) Patient's Condition on Arrival in Phase II: Stable Pain Level: 7
[2018-06-12] MEDS: HYDROmorphone 2 MG/1 ML IVP PRN ×8 (17:06→17:46)
[2018-06-12] MEDS ORDERED: LIDOCAINE W/ SODIUM BICARB 0.5 ML SYR SUBD PRN ×2 (17:06→19:49)
--- NOTE | 2018-06-12 17:06 | CRNA.PROGR ---
Anesthesia Note - Progress Notes Anesthesia Progress Note: stable at patient handoff PACU, [facility], followup at pt/surgeon request
--- NOTE | 2018-06-12 17:15 | GEN.OPNOTE ---
Operative Note Surgery Date: 06/12/18 Preoperative Diagnosis: 1. Chronic neck pain status post a fall. 2. Multilevel cervical degenerative disc disease advanced at C5-6, C6-7 and C7-T1. 3. Multilevel cervical spondylosis advanced C3-4 on the right, C4-5 on the left, moderate in degree at C5-6 and C6-7 bilaterally and advanced C7-T1. bilaterally. 4. Prominent diffuse disc/osteophyte complexes C3-4, C4-5, and C5-6. 5. Central canal stenosis C3-4, C4-5, and C5-6. 6. Bilateral C3-4, C4- 5, and C5-6 neuroforaminal stenosis. 7. Loss of normal cervical lordosis. Postoperative Diagnosis: 1. Chronic neck pain status post a fall. 2. Multilevel cervical degenerative disc disease advanced at C5-6, C6-7 and C7-T1. 3. Multilevel cervical spondylosis advanced C3-4 on the right, C4-5 on the left, moderate in degree at C5-6 and C6-7 bilaterally and advanced C7-T1. bilaterally. 4. Prominent diffuse disc/osteophyte complexes C3-4, C4-5, and C5-6. 5. Central canal stenosis C3-4, C4-5, and C5-6. 6. Bilateral C3-4, C4- 5, and C5-6 neuroforaminal stenosis. 7. Loss of normal cervical lordosis. Procedure: 1.) Posterior cervical approach. 2.) Posterolateral arthrodesis, C3 bilaterally in preparation for fusion. (CPT code: 44209). 3.) Posterolateral arthrodesis, C4 bilaterally in preparation for fusion. (CPT code: 34204). 4.) Posterolateral arthrodesis, C5 bilaterally in preparation for fusion. (CPT code: 23129). 5.) Posterolateral arthrodesis, C6 bilaterally in preparation for fusion. (CPT code: 67600). 6.) Posterolateral arthrodesis, C7 bilaterally in preparation for fusion. (CPT code: 79897). 7.) Posterolateral arthrodesis, T1 bilaterally in preparation for fusion. (CPT code: 21612). 8.) Posterolateral arthrodesis, T2 bilaterally in preparation for fusion> (CPT code: 08648). 9.) C3-T2 posterolateral segmental instrumentation using the NativeX [place] posterolateral cervical/thoracic lateral mass and pedilce screw systm with 3.5 x 14 mm lateral mass screws placed in the C3, C4, C5, and C6 lateral masses bilaterally and 4.0 x 26 mm pedicle screws in the C7 pedicles bilaterally, 4.0 x 30 mm pedicle screws in the T1 pedicles bilaterally, and 4.0 x 32 mm pedicle screws bilaterally. (CPT code: 95856). 10.) Use of 20 cc NativeX Vitoss Bimodal Bioactive Bone Graft Substitute (implantable allograft) saturated with 4 cc (diluted to 12cc) Jen [employer] Active Matrix (implantable allograft), 20 cc of NativeX DBM Plus Putty with cancellous (implantable allograft), and 60 cc cancellous bone chips (implantable allograft) for posterolateral fusion C3-T2 bilaterally. (CPT code: 87326). 11.) Computer assisted neuronavigation using the NativeX Neuronavigation system for cannulization of the C7, T1, and T2 pedicles for the subsequent placement of the C7, T1, and T2 pedicle screws bilaterally. (CPT code: 87239). 12.) Use of intra-operative fluoroscopy for the localization of the correction surgical levels, for the neuronavigation, and for the confirmation of the final position of the posterolateral cervical/thora cic instrumentation. 13.) Use of neuromonitoring including EMG's, SSEP's, and MEP's. Surgeon: Raheem Hodgson MD Machine Clerical Verifier: JAZZ Kaur Anesthesia Type: General Estimated Blood Loss (mL): 500 Fluids: See anesthesia record Pathology: None Indications: Mr. Mathews is a 57-year-old gentleman well known to me from my previous [facility] practice. Mr. Mathews has had chronic low back pain for many years and has undergone several back surgeries that I performed as well as a dorsal column stimulator placement that Dr. Shabazz performed. Mr. Mathews fell off a ladder on the beginning of February. He states that he landed on his back. He did not go to the emergency department to be evaluated. Since this fall, he continues to have neck pain, mid back pain and low back pain. He had cervical radiographic images that demonstrated marked degenerative changes of the cervical spine, but with no evidence of acute injury or fracture. Mr. Mathews had a cervical myelogram with post myelogram CT that demonstrated multilevel cervical degenerative disc disease most advanced at C5-6, C6-7 and C7-T1. The study demonstrated multilevel cervical spondylosis with marked facet arthropathy and hypertrophy at C3-4 on the right, C4-5 on the left and then to a lesser extent at C5-6 and C6-7 bilaterally and severe facet arthropathy at C7- T1. Since Mr. Mathews's symptoms had failed expectant management and non-operative therapies, we had discussed the option of proceeding with a staged anterior/posterior cervical procedure because of his extensive degenerative changes. We discussed proceeding with a C3-4, C4-5, C5-6, and possible C6-7 anterior cervical discectomy and fusion followed by a C3- T3 posterior cervical instrumented fusion. He wished to proceed with the surgical procedure. Findings: Multilevel advanced cervical facet arthropathy/hypertrophy. Complications: None Operative Summary: Mr. Mathews was met in the preoperative area. His surgical history and physical in his chart was reviewed. The intended procedure to be performed was reviewed with Mr. Mathews and we were in agreement on the procedure to be performed and this matched what was written on the patients consent form. Any questions that he or his had were answered before he was taken back to the Operating Room Suite. Mr. Mathews was brought back to the Operating Room Suite and put under general anesthesia and intubated by the anesthesia staff. He was put in three-point head pin fixation using the Lock cigar head perforator. He had a Thomson catheter placed in his bladder. Pneumatic compression hose placed on his lower legs bilaterally. Mr. Mathews was carefully rolled over onto the Means surgical table with his head in neutral position and the Lock cigar head perforator was attached to the surgical bed in a supine position in a neutral fashion after making sure that all adjustments made to get him properly positioned on the surgical pads of the bed was performed. His Thomson catheter was checked to be free from kinks. His pneumatic compression hose was attached to the pneumatic compression device. The hair over the suboccipital area on the back of Mr. Bell head was clipped with a surgical clipper with all stray hairs being removed with surgical tape. Midline intended skin incision was made with a skin marker with a number of cross hatches extending from the nuchal line down into the interscapular region. Mr. Bell shoulders were generally retracted with surgical tape and the skin in the interscapular region was gently retracted with surgical tape as well. Mr. Mathews was prepped and draped in the usual and standard fashion. He was given 1 gram of vancomycin IV for perioperative changes. He was given 2 grams of Ancef IV for perioperative antibiosis. He was given 10 mg of Decadron IV. A standard surgical time out was performed identifying the correct patient, the patients correct procedure, and the correct equipment being available for the procedure. The intended incision was injected subcutaneously with -percent Marcaine with 1:200,000 epinephrine. The skin was incised with a 10-blade scalpel and all dermal and superficial bleeding points were coagulated with bipolar cautery. The dissection was continued through the subcutaneous tissue with Bovie cautery down to the median raphe. The dissection was continued through the median raphe with Bovie cautery until the fascia along the cervical and upper thoracic spinous processes were identified both visually and by palpation. Cerebellar and Gelpi retractors were placed with self-retaining retraction. Subperiosteal dissection was then performed down the spinous processes and out over the cervical lamina and down the spinous processes of the upper thoracic spine and out over the respective lamina. A Mariya was placed on bifid spinous process in the upper cervical spine and this level was identified as the C2 spinous process by lateral fluoroscopy. Continued dissection was performed until the final exposure was from the inferior aspect of the C3 lamina down to the T3 lamina and out laterally over the C3, C4, C5, C6, and C7 lateral masses bilaterally down over the transverse processes of the T1-T2 and T3 transverse processes and out over the proximal rib heads at the thoracic levels as well. The cerebellar and Gelpi retractors were readjusted to provide the proper exposure needed for the decortication instrumentation portions of the procedure. The [place] neuronavigation reference arc was securely attached to the T3 spinous process and this pin was performed with the EVRYTHNGer neuronavigation pedicle finder was then used to cannulate the C7, T1, T2 pedicles bilaterally. The internal aspect of the cannulated pedicles was inspected with small ball tip instrument assuring that there were no cortical breaches. Because of the size of the pedicle finder, the pedicles were not tapped with pedicle screw replaced directly. 4.0 mm X 26 mm pedicle screws were placed into the C7 pedicles bilaterally, 4.0 X 30 mm screws were placed into the T1 pedicles bilaterally, 4.0 X 32 mm pedicle screws were placed into T2 pedicles bilaterally. The pedicle screws were then all interrogated with trigger EMGs and all demonstrating good impedance of all the screws, except the T1 pedicle screw on the left which was re-cannulated using the NativeX neuronavigation system more medially. We re-cannulated more medially by using the [place] neuronavigation pedicle finder and then the screw was placed in this more medial path after palpating the channel with the ball tip instrument. The thoracic pedicle screw that was repositioned was then re-interrogated with a trigger and EMGs demonstrating higher acceptable impedance and other was performed with fluoro scopy unit demonstrating better position of his screw within the pedicle tract. [employer] holes were then drilled into the lateral masses of C3-4, C4-5, and C6 bilaterally with the high speed [employer] [place] Drill with a matchstick bit using external landmarks to determine the proper positioning for the airplane pilot holes. The airplane pilot holes were then extended using the handheld NativeX drill with 3 mm bit set to a depth of 12 mm, drilling each channel rostrally and laterally. The lateral masses were then all re-drilled with the same drill bit drill, but with the drill bit extended to a distance of 14 mm. The internal aspects of the channels were then inspected with a ball tip instrument. The facet joints at C3-4, C4-5, C5-6, and C6-7 were then drilled out with a high speed [place] Drill with a matchstick bit to be able to decorticate the facet joints and the lateral masses themselves were then decorticated with the same drill and the same bit. The C6-7, T1-2 facet joints were then decorticated as well with the same drill with the same bit as was the T1 and T2 transverse processes and the proximal aspect of the rib heads of T1 and T2. The lateral mass screws were then placed. 3.5 mm X 14 mm lateral mass screws were placed into the C3, C4, C5, and C6 lateral masses bilaterally. The lateral mass screws all obtained good purchase in the lateral mass bone as the C7 and thoracic pedicle screws had obtained good purchase in the pedicle and vertebral body bone. The cervical lateral mass screws were than all interrogated with trigger EMGs all demonstrating sufficiently high impedance indicating that they were not in close proximity to nerve structures. Another spin was performed with the 3D fluoroscopy assuring that the lateral mass screws were contained within the late ral masses bilaterally. The surgical site was irrigated with bacitracin irrigation. The appropriate size, 3.5 mm rods were then cut to the appropriate length as determined by templates. The rods were then bent into the appropriate cervical lordosis and thoracic kyphosis. The rods were then placed in through the tulips of the lateral mass screws of the C3, C4, C5, and C6 and the tulips of the pedicle screws of C7, T1, and T2 screws bilaterally, and then set screws were placed over the rods in the tulips of all of the lateral mass screws and thoracic pedicle screws and these were tightened down hand-tight at first and then tightened down to the final tightness using the jshrkb-ucuwgnk-irjrdi device. The C3, C4, C5, C6, C7, T1, T2 lamina were then all decorticated with a high speed drill, high speed Midas Donovan drill with a matchstick bit, as was the spinous processes at all of these levels. The surgical site was copiously irrigated with bacitracin irrigation. The surgical site was then pulse lavaged with 3 liters of bacitracin/vancomycin/gentamycin solution. Ten cc of Vitoss BiModal synthetic bone product saturated in 4 cc of [employer] active matrix diluted down to 12 cc was then placed medial to the hardware construct bilaterally extending from the C3 lamina to the T2 lamina bilaterally. Six cc of cancellous bone chips was then placed medial and lateral to the hardware construct from the C3 lamina and lateral mass down to the T2 lamina and transverse processes. Twenty cc of NativeX Bio DBM plus putty with cancellous was then split with half of this product being placed medial and lateral to the hardware construct over the Vitoss synthetic bone product and the cancellous bone chips bilaterally from the C3 lamina and lateral mass down to the T2 lamina and transverse process. Two medium Hemovac drains were placed in the surgical site, one on each side. The closure portion of the procedure was begun. The deep paraspinous musculature was re-approximated with #1 Vicryl suture. The fascia layer was closed tightly with #1 Vicryl in interrupted fashion as well. The deep subcutaneous tissue was re-approximated with #1 Vicryl suture as well. The intermediate subcutaneous tissue was re-approximated with 2-0 Vicryl suture in an interrupted fashion. The more superficial subcutaneous tissue was re- approximated with 2-0 Vicryl suture in an interrupted fashion. The dermis and superficial subcutaneous tissue was re-approximated with 3-0 Vicryl suture in an inverted interrupted fashion. The outer drapes were pulled back from the skin edges. Skin edges were cleansed with a bacitracin-soaked sponge and dry sponge. The final area of closure was performed with surgical stainless steel simón. The surgical drain was secured with sutures. The drain site was dressed. All surgical drapes were then removed from Mr. Mathews. The connection on the [place] head-hammer to the bed was then de-attached. Mr. Mathews was then carefully rolled over onto the PACU stretcher keeping his head neutral in the [place] head-hammer. The [place] head-hammer was then removed. The pin sites were checked for any bleeding, none was identified. A small amount of Surgiflo was placed into each of the pin sites. Mr. Mathews was then awoken and extubated by the anesthesia staff. He was taken to the Recovery Room in stable condition. All surgical counts were reported as correct by the scrub and circulating personnel. A Physicians Machine Clerical Verifier, Ms, Michelle Khan PA-C did assist with the procedure, including the exposure and closure portions of the procedure. She also provided irrigation and suctioning throughout the procedure.
[2018-06-12] MEDS: fentaNYL Inj 100 MCG/2 ML VIAL IVP PRN ×2 (17:25→17:38)
[2018-06-12] MEDS ORDERED: METOPROLOL TARTRATE 5 MG/5 ML VIAL IVP ONE (17:52)
[2018-06-12] MEDS ORDERED: HYDROMORPHONE PO PRN ×4 (18:04→19:49)
[2018-06-12] MEDS ORDERED: HYDROmorphone 2 MG/1 ML IVP PRN ×3 (18:05→19:49)
--- NOTE | 2018-06-12 18:14 | NEURO.PROG ---
Subjective Post Op Day: 0 Pain Management: IV Thomson Catheter: No Ambulating: No Additional Details: Walking up in PACU. Complaint of numbness in the hands bilaterally. Moving all extremities. Requiring a lot of pain medication (multi year history of chronic narcotic use for chronic pain). PLAN: 1.) Transfer to med/surg floor when parameters met. 2.) Continue post-operative antibiotics. 3.) Continue post-operative pain control. 4.) Advance diet. 5.) Start to mobilize. Objective : Data - Labs CBC and BMP: 06/12/18 04:22 06/12/18 04:22 - Vital Signs Vital Signs and I&O: Vital Signs - Last Taken Temperature 99.2 F 06/12/18 03:35 Pulse Rate 74 06/12/18 03:35 Respiratory Rate 20 06/12/18 03:35 Blood Pressure 119/84 06/12/18 03:35 Pulse Ox 90 06/12/18 03:35 Intake and Output (24hr x 4 totals) 06/10/18 06/11/18 06/12/18 06/13/18 05:59 05:59 05:59 05:59 Intake Total 5156 / 5156 405 / 405 3200 / 3200 Output Total 3545 / 3545 610 / 610 Balance 1611 / 1611 405 / 405 2590 / 2590
[2018-06-12] MEDS ORDERED: DIAZEPAM 10 MG TABLET PO PRN ×2 (18:15→19:49)
[2018-06-12] MEDS ORDERED: METOPROLOL TARTRATE 5 MG/5 ML VIAL ONE (18:22)
[2018-06-12] MEDS ORDERED: diphenhydrAMINE 50 MG/1 ML VIAL ONE (18:25)
[2018-06-12] MEDS ORDERED: MAGNESIUM CITRATE 296 ML SOLUTION PO PRN ×3 (19:49)
[2018-06-12] MEDS ORDERED: oxyCODONE/APAP 7.5/325 Tab 1 TAB TAB PO PRN (19:49)
[2018-06-12] MEDS ORDERED: MAGNESIUM 400 MG/5 ML - 30 ML (MILK OF MAGNESIA) PO PRN ×3 (19:49)
[2018-06-12] MEDS ORDERED: BENZTROPINE 1 MG TABLET PO ONE (19:49)
[2018-06-12] MEDS ORDERED: Metoclopramide Inj 10 MG/2 ML VIAL IVP PRN (19:49)
[2018-06-12] MEDS ORDERED: ONDANSETRON 4 MG/2 ML VIAL IVP PRN ×2 (19:49)
[2018-06-12] MEDS ORDERED: Vancomycin-PHA to Dose IV SCH (19:49)
[2018-06-12] MEDS ORDERED: HYDROcodone-APAP 5 MG -325 MG TABLET PO PRN (19:49)
[2018-06-12] MEDS ORDERED: Lactated Ringers 1,000 ML PRIMARY IV SCH (19:49)
[2018-06-12] MEDS ORDERED: DIAZEPAM 10 MG/2 ML (5 MG/1 ML) CARPUJECT IVP PRN (19:49)
[2018-06-12] MEDS ORDERED: DOCUSATE 100 MG CAPSULE PO PRN ×2 (19:49)
[2018-06-12] MEDS ORDERED: oxyCODONE-ACETAMINOPHEN 5-325 TAB PO PRN (19:49)
[2018-06-12] MEDS ORDERED: Fleet Enema 133ml RECTAL PRN ×2 (19:49)
[2018-06-12] MEDS ORDERED: HYDROcodone-APAP 7.5 MG-325 MG TABLET PO PRN (19:49)
[2018-06-12] MEDS ORDERED: Prochlorperazine Edisylate Inj 10mg/2ml vial IVP PRN (19:49)
[2018-06-12] MEDS ORDERED: BISACODYL 5 MG TABLET PO PRN ×2 (19:49)
[2018-06-12] MEDS ORDERED: PROMETHAZINE 25 MG/1 ML VIAL IM PRN (19:49)
[2018-06-12] MEDS ORDERED: Ondansetron ODT Tab 4 MG TAB PO PRN ×2 (19:49)
--- NOTE | 2018-06-12 19:51 | PDOC(PROG) ---
Date of Service: 06/12/18 Time of Service: 19:43 Interval History: Patient seen and evaluated from approximately 6:15 to 7:15 PM. Seen in conjunction neurosurgery and anesthesiology. We had several discussions about the differential. The patient has had tachycardia, altered mental status and confusion, abnormal tongue movements and rolling, some lip smacking, and akathisia with significant arm movements in particular. He has been afebrile and is maintaining his saturations and is not requiring oxygen at this time. He has had fentanyl, Dilaudid, and Valium. Valium seemed to control his symptoms the best. It looks consistent with a tardive dyskinesia. He is on Paxil at home. He is on Neurontin. In speaking with anesthesiology, the patient has had about 20 hours total of general anesthesia today and 2 days ago with his anterior approach. Objective : Data - Labs CBC and BMP: 06/12/18 04:22 06/12/18 04:22 Objective : Exam - General General Appearance: Mild Distress, Obese Additional General Exam Details: Vital Signs - Last Taken Temperature 99.2 F 06/12/18 03:35 Pulse Rate 74 06/12/18 03:35 Respiratory Rate 20 06/12/18 03:35 Blood Pressure 119/84 06/12/18 03:35 Pulse Ox 90 06/12/18 03:35 During my examination and postoperative, his systolic pressure range from the 140s to 160s, he was tachycardic at 110s to 116, saturation was greater than 91% on room air. He was afebrile - Eye Eye Exam: No Scleral Icterus, Periorbital Swelling (Has some swelling in his eyelids, probably from prone positioning.) - ENT ENT Exam: Mucous Membranes Dry - Respiratory Respiratory Exam: Clear to Auscultation - Bilaterally, Breathing Non Labored - Cardiovascular Cardiovascular Exam: No Murmur, No Clicks, No Gallops, No Rubs, Tachycardia, No JVD - GI/Abdominal GI/Abdominal Exam: Normal Bowel Sounds, Non Tender, Non Distended, Soft - Extremities Extremities Exam: No Clubbing Present, No Edema Present, No Cyanosis Present - Neurological Neurological Exam: Alert, No Facial Droop, Speech Intact / Clear (Despite tongue rolling movements and occasional lipsmacking, speech is intact and clear), Altered (He is alert to person, but not to place, time, or situation) Additional Neurological Exam Details: The patient has akathisia, significant jerking motions of his upper extremities in particular his right upper extremity. - Psychiatric Psychiatric Exam: Anxious, Agitated Assessment and Plan - Patient Problems (1) Tardive dyskinesia Current Visit: Yes Status: Acute Comment: This is postoperative Code(s): G24.01 - Drug induced subacute dyskinesia (2) DMII (diabetes mellitus, type 2) Current Visit: Yes Status: Acute Code(s): E11.9 - Type 2 diabetes mellitus without complications Qualifiers: Diabetes mellitus moth exterminator insulin use: without moth exterminator use Diabetes mellitus complication status: without complication Qualified Code(s): E11.9 - Type 2 diabetes mellitus without complications (3) Chronic neck and back pain Current Visit: Yes Status: Chronic Code(s): M54.2 - Cervicalgia; M54.9 - Dorsalgia, unspecified; G89.29 - Other chronic pain (4) S/P gastric bypass Current Visit: Yes Status: Acute Code(s): Z98.84 - Bariatric surgery status (5) S/P cervical spinal fusion Current Visit: Yes Status: Acute Code(s): Z98.1 - Arthrodesis status - Assessment / Plan Additional Assessment/Plan Details: The patient would be at risk for tardive dyskinesia from the use of SSRI, Prozac or fluoxetine, which can cause extrapyramidal symptoms and also can cause serotonin syndrome which is in the differential, although he does not have clonic motions and is afebrile at this time. I think this, coupled with the probable interaction from Neurontin that he is on at home, and here in the hospital, and anesthesia probably has caused this. I spoke at length with neuro surgery and anesthesiology about this. Symptomatic treatment including IV fluids, Thomson catheterization, ICU monitoring, and telemetry monitoring. If the patient develops respiratory issues, may need to intubate to protect airway until symptoms resolve. Will write for benztropine and try to get some IV doses. I discussed with pharmacy in no get some from a local hospital. Avoid Reglan, Compazine, and Phenergan for nausea as they can make this worse. Avoid Benadryl as that can make it worse as well. Cautious administration of narcotics. Benzodiazepines for symptomatically therapy. They have helped with agitation and akathisia tonight. Labs in a.m. We'll get sedimentation rate and CRP tonight. Will consult the eICU to help us manage this.
[2018-06-12 20:21] LABS: BASOPHILS # (AUTO) 0.01 10*3/UL; BASOPHILS % (AUTO) 0.2 % (0-1); EOSINOPHILS # (AUTO) 0.01 10*3/UL; EOSINOPHILS % (AUTO) 0.2 % (0-8); Hematocrit [HCT] 33.4 % (42.0-52.0); Hemoglobin [HGB] 10.8 g/dL (14.0-18.0); MEAN CORPUSCULAR HEMOGLOBIN 28.1 PG (27-31); MEAN CORPUSCULAR HGB CONC 32.3 g/dL (33-37); MEAN CORPUSCULAR VOLUME 86.8 FL (80-90); MEAN PLATELET VOLUME 8.9 FL (7.4-12.2); MONOCYTES # (AUTO) 0.06 10*3/UL (0.3-0.8); NEUTROPHILS % (AUTO) 93.2 % (50-80); RED BLOOD COUNT 3.85 10^6/uL (4.70-6.10)
[2018-06-12 20:23] LABS: PLATELET MORPHOLOGY COMMENT NORMAL MORPHOLOGY (NORM); RBC MORPHOLOGY COMMENT NORMAL MORPHOLOGY (NORM); WBC MORPHOLOGY COMMENT NORMAL MORPHOLOGY (NORM)
[2018-06-12 20:30] LABS: BLOOD UREA NITROGEN 8 mg/dL (7-22); BUN/CREATININE RATIO 11.42 (6-20); SERUM ALBUMIN 3.2 g/dL (3.5-4.8)
[2018-06-12 20:38] LABS: VENOUS PH 7.39 (7.32-7.42)
[2018-06-12] MEDS ORDERED: BENZTROPINE 1 MG TABLET PO SCH (21:00)
[2018-06-12] MEDS ORDERED: BENZTROPINE IVP SCH (21:00)
[2018-06-12] MEDS: ceFAZolin Inj 1 GM in Sodium Chloride 0.9% 100 ML IV SCH (21:04)
[2018-06-12] MEDS: Sodium Chloride 0.9% 1,000 ML PRIMARY IV SCH (21:04)
--- NOTE | 2018-06-12 21:06 | DI ---
EXAM: CT Head Without Intravenous Contrast CLINICAL HISTORY: ITS.REASON altered mental status Physician Notes: Tech Comments: TECHNIQUE: Axial computed tomography images of the head/brain without intravenous contrast. COMPARISON: No relevant prior studies available. FINDINGS: Brain: No hemorrhage. No edema. Ventricles: Unremarkable. No ventriculomegaly. Bones/joints: No acute fracture. Soft tissues: Unremarkable. Sinuses: Trace fluid versus mucosal thickening in the maxillary sinuses. Mastoid air cells: Unremarkable as visualized. No mastoid effusion. IMPRESSION: Trace fluid versus mucosal thickening in the maxillary sinuses. Correlate clinically for mild sinusitis.
[2018-06-12] MEDS: GABAPENTIN 300 MG CAPSULE PO SCH ×3 (22:31→22:35)
[2018-06-12] MEDS: PANTOPRAZOLE 40 MG TABLET PO SCH (22:31)
[2018-06-12] MEDS: Multivitamin Tab 1 TAB PO SCH (22:35)
[2018-06-12] MEDS: FLUoxetine 20 MG CAPSULE PO SCH (22:35)
[2018-06-12] MEDS: CYANOCOBALAMIN (VITAMIN B-12) 1,000 MCG TABLET.ER PO SCH (22:35)
[2018-06-12] MEDS ORDERED: LORazepam 2 MG/1 ML VIAL IVP ONE (23:04)
[2018-06-12] MEDS ORDERED: LORazepam 2 MG/1 ML VIAL ONE (23:34)
[2018-06-12] MEDS: LORazepam Inj(ETOH withdrawal) 2 MG/ML VIAL IVP PRN (23:35)
[2018-06-12] MEDS ORDERED: DIAZEPAM 10 MG/2 ML (5 MG/1 ML) CARPUJECT IVP ONE (23:53)
[2018-06-13] MEDS ORDERED: DIAZEPAM 10 MG/2 ML (5 MG/1 ML) CARPUJECT IVP ONE ×4 (00:01→11:58)
[2018-06-13] MEDS: Dexmedetomidine/NS 400 MCG/100 ML INFUS..BTL IV SCH ×5 (00:06→23:17)
--- NOTE | 2018-06-13 00:18 | PDOC(PROG) ---
Date of Service: 06/13/18 Time of Service: 00:13 Interval History: patient confused, talking about motorcycles and agitated, pulled out catheter. discussed with , Ashley, . the patient drinks a 12 pack of beer, minimum, daily. responding very well to valium at bedside (I had RN give 30 mg over about 15-20 min) starting precedex no other history reliable with significant confusion. Objective : Data - Labs CBC and BMP: 06/12/18 20:12 06/12/18 20:12 Objective : Exam - General General Appearance: Severe Distress (agitated, confused.), Obese - Eye Eye Exam: No Scleral Icterus - ENT ENT Exam: Mucous Membranes Moist - Neck Neck Exam: JVP is not Raised - Respiratory Respiratory Exam: Breathing Non Labored, Wheezes - Cardiovascular Cardiovascular Exam: RRR, No Murmur, No Clicks, No Gallops, No Rubs, No JVD - GI/Abdominal GI/Abdominal Exam: Non Tender, Non Distended, Soft - Extremities Extremities Exam: No Clubbing Present, No Edema Present, No Cyanosis Present - Neurological Neurological Exam: Alert, No Facial Droop, Speech Intact / Clear, Moves All Extremities Equally, Altered (oriented to person, not to place, time or situation.) Additional Neurological Exam Details: tremor bilaterally - Psychiatric Psychiatric Exam: Anxious, Agitated Assessment and Plan - Patient Problems (1) Alcohol withdrawal Current Visit: Yes Status: Acute Code(s): F10.239 - Alcohol dependence with withdrawal, unspecified Qualifiers: Complication of substance-induced condition: with delirium Qualified Code(s ): F10.231 - Alcohol dependence with withdrawal delirium (2) DMII (diabetes mellitus, type 2) Current Visit: Yes Status: Acute Code(s): E11.9 - Type 2 diabetes mellitus without complications Qualifiers: Diabetes mellitus alf insulin use: without oil heaterman use Diabetes mellitus complication status: without complication Qualified Code(s): E11.9 - Type 2 diabetes mellitus without complications (3) Chronic neck and back pain Current Visit: Yes Status: Chronic Code(s): M54.2 - Cervicalgia; M54.9 - Dorsalgia, unspecified; G89.29 - Other chronic pain (4) S/P gastric bypass Current Visit: Yes Status: Acute Code(s): Z98.84 - Bariatric surgery status (5) S/P cervical spinal fusion Current Visit: Yes Status: Acute Code(s): Z98.1 - Arthrodesis status (6) Tardive dyskinesia Current Visit: Yes Status: Ruled-out Code(s): G24.01 - Drug induced subacute dyskinesia - Assessment / Plan Additional Assessment/Plan Details: the patient has been drinking a 12 pack (question more) for the better part of the last 15 years per my discussion with his the patient's presentation tonight has been most consistent with alcohol withdrawal--I think we can safely rule out tardive dyskinesia despite movements seen in post op, now question alcohol withdrawal seizures?? will start precedex, CIWA, scheduled ativan and valium--try to protect surgical sites as much as possible, drains posteriorly are still in place thiamine MVI written for labs this AM check magnesium d/w --told her DT's carry about a 10% mortality rate, but I am encouraged by his fast response to valium. that said, expecting prolonged withdrawal course, delayed PT and OT, etc. no DVT prophylaxis yet--too soon with spinal surgery, but may need to discuss with neurosurgery to consider chemical prophylaxis at some point if withdrawal prolonged. complex, guarded.
[2018-06-13] MEDS: LORazepam 2 MG/1 ML VIAL IVP SCH ×6 (01:08→18:45)
[2018-06-13] MEDS: LORazepam Inj(ETOH withdrawal) 2 MG/ML VIAL IVP PRN ×4 (01:10→22:21)
[2018-06-13] MEDS: DIAZEPAM 10 MG/2 ML (5 MG/1 ML) CARPUJECT IVP SCH ×2 (01:14→07:25)
[2018-06-13] MEDS ORDERED: HYDROmorphone 2 MG/1 ML IVP ONE (03:18)
[2018-06-13] MEDS ORDERED: LIDOCAINE HCL 2 % 10 ML JELLY URO-JECT TOPICAL PRN (03:19)
[2018-06-13 04:54] LABS: BASOPHILS # (AUTO) 0 10*3/UL; BASOPHILS % (AUTO) 0 % (0-1); EOSINOPHILS # (AUTO) 0 10*3/UL; EOSINOPHILS % (AUTO) 0 % (0-8); Hematocrit [HCT] 29.2 % (42.0-52.0); Hemoglobin [HGB] 9.6 g/dL (14.0-18.0); LYMPHOCYTES # (AUTO) 0.55 10*3/uL; MEAN CORPUSCULAR HEMOGLOBIN 28.3 PG (27-31); MEAN CORPUSCULAR HGB CONC 32.9 g/dL (33-37); MEAN CORPUSCULAR VOLUME 86.1 FL (80-90); MEAN PLATELET VOLUME 9.6 FL (7.4-12.2); MONOCYTES # (AUTO) 0.61 10*3/UL (0.3-0.8); MONOCYTES % (AUTO) 8.6 % (5-15); NEUTROPHILS # (AUTO) 5.95 10*3/UL; NEUTROPHILS % (AUTO) 83.6 % (50-80); RED BLOOD COUNT 3.39 10^6/uL (4.70-6.10)
[2018-06-13 05:00] LABS: BLOOD UREA NITROGEN 10 mg/dL (7-22); BUN/CREATININE RATIO 16.66 (6-20)
[2018-06-13] MEDS: ceFAZolin Inj 1 GM in Sodium Chloride 0.9% 100 ML IV SCH (05:01)
[2018-06-13 05:06] LABS: PLATELET MORPHOLOGY COMMENT NORMAL MORPHOLOGY (NORM); RBC MORPHOLOGY COMMENT NORMAL MORPHOLOGY (NORM); WBC MORPHOLOGY COMMENT NORMAL MORPHOLOGY (NORM)
--- NOTE | 2018-06-13 07:40 | PDOC(PROG) ---
Date of Service: 06/13/18 Time of Service: 07:10 Interval History: Subjective No meaningful information can be obtained from the patient. He is confused. He can't tell me his name, he repeats saying "Mio" multiple times to different questions. He's trying to get out of the bed. He Follow some of the commands. He does admit to drinking. He said alcohol 5-6 a day. He couldn't tell me his birthday. However he was able to tell me that he lives in [place] with his . Could not tell me where he is at right now. Objective : Data - Labs CBC and BMP: 06/13/18 03:45 06/13/18 03:45 Objective : Exam - General General Appearance: Obese Additional General Exam Details: Confused, trying to get out of the bed. - Head Head Exam: Normal Inspection - Eye Additional Eye Exam Details: There is preferential deviation to the left side. - ENT ENT Exam: Normal Exam - Neck Additional Neck Exam Details: Once seen to be clean anteriorly. - Respiratory Respiratory Exam: Clear to Auscultation - Bilaterally - Cardiovascular Cardiovascular Exam: RRR - GI/Abdominal GI/Abdominal Exam: Normal Bowel Sounds, Non Tender, Non Distended, Soft, No Organomegaly Additional GI/Abdominal Exam Details: Scar of previous operation noted. - Rectal Rectal Exam: Deferred - External Exam: Deferred Exam: Deferred - Extremities Extremities Exam: Normal Inspection - Neurological Additional Neurological Exam Details: Confused, cannot tell me his name, his date of , where he is at. He moved all his extremities. Tone seemed to be symmetrical. There is some tremor noted in the right hand predominantly. He looks to the left. Reflexes symmetrical. Babinski's absent. Tongue and is in midline. No fasciculation. Noted - Psychiatric Additional Psychiatric Exam Details: Restless. - Integumentary Integumentary Exam: Normal Color Assessment and Plan - Patient Problems (1) Alcohol withdrawal Current Visit: Yes Status: Acute Comment: The confusion probably related to alcohol withdrawal. He is on Precedex, Ativan scheduled and when necessary. He is also on Valium scheduled. I think we'll switch the Valium to when necessary. I don't think we can do an MRI of his brain because of history of previous spinal stimulator. Will puts him on multivitamin. Code(s): F10.239 - Alcohol dependence with withdrawal, unspecified Qualifiers: Complication of substance-induced condition: with delirium Qualified Code(s): F10.231 - Alcohol dependence with withdrawal delirium (2) Chronic neck and back pain Current Visit: Yes Status: Chronic Comment: pain medication written as needed. Code(s): M54.2 - Cervicalgia; M54.9 - Dorsalgia, unspecified; G89.29 - Other chronic pain (3) DMII (diabetes mellitus, type 2) Current Visit: Yes Status: Acute Comment: Had a history of diabetes but apparently resolved after bypass. Code(s): E11.9 - Type 2 diabetes mellitus without complications Qualifiers: Diabetes mellitus detention insulin use: without detention use Diabetes mellitus complication status: without complication Qualified Code(s): E11.9 - Type 2 diabetes mellitus without complications (4) S/P cervical spinal fusion Current Visit: Yes Status: Acute Comment: Management per Dr. Hodgson. For DVT prophylaxis he is on SCDs. Code(s): Z98.1 - Arthrodesis status
[2018-06-13] MEDS ORDERED: Magnesium Sulfate 2gm (Premix) 2 GM/50 ML BAG IV ONE (07:45)
[2018-06-13] MEDS: PANTOPRAZOLE 40 MG TABLET PO SCH ×2 (08:43→17:24)
[2018-06-13] MEDS: Sodium Chloride 0.9% 1,000 ML PRIMARY IV SCH ×2 (09:16→17:28)
[2018-06-13] MEDS: FLUoxetine 20 MG CAPSULE PO SCH (09:34)
[2018-06-13] MEDS: GABAPENTIN 300 MG CAPSULE PO SCH ×3 (09:34→20:43)
[2018-06-13] MEDS: Multivitamin Tab 1 TAB PO SCH (09:35)
--- NOTE | 2018-06-13 13:32 | NEURO.PROG ---
Subjective Post Op Day: 1 Pain Management: IV Thomson Catheter: No Diet: NPO Ambulating: No Additional Details: Patient seen last night post-operatively in the recovery room, earlier this morning and now. Post-operatively in the PACU he was febrile, hypertensive, tachycardic, and with tartive dyskinesia type movements concerning for post-operative malignant hypertension, serotonin syndrome, or tartive dyskinesia. Hypertension improved, temperature improved, movements lessened and patient was sent to the med/surg monitored unit last evening. According to the nursing staff he arrived on the floor coherent, went for a Head CT and when re-arrived on the floor was given Cogentin and he became agitated with delerium and confusion shortly thereafter. Although Mr. Mathews had previously denied alcohol intake in decades, his was called who stated he drinks a 12 pack of beer every night. The nurses had to use his phone to contact the and there were text messages on the screen of the phone asking him about selling other people narcotics. It took six nursing staff, high doses of Dilaudid and 80 mg of Valium to calm him down to the point were he relaxed enough to sleep. He was a handful for the nurses all night long at times trying to pull his IV's out and one time when trying to pull his surgical wound Provena off, he told the nursing staff he was going to get his shotgun and kill them. This morning he told the nursing staff when awake that he was a person by a different name, that he was with his mother and that he was living in [facility]. The patient if felt by the hospitalist's and myself to be in severe alcohol withdrawal. He is being treated with supportive care, Precedex, and Valium. His Head CT last evening was normal. Although a good neurologic examination is unobtainable when awake his is delirious and confused, although his speech is understandable. When awake his is noted to be moving all extremities well. PLAN: 1.) Continue supportive care in monitored unit. 2.) Continue post-operative antibiotics. 3.) Continue surgical wound Provena dressing. Objective : Data - Labs CBC and BMP: 06/13/18 03:45 06/13/18 03:45 - Vital Signs Vital Signs and I&O: Vital Signs - Last Taken Temperature 97.2 F 06/13/18 12:00 Pulse Rate 50 L 06/13/18 12:00 Respiratory Rate 12 06/13/18 12:00 Blood Pressure 137/83 06/13/18 12:00 Pulse Ox 98 06/13/18 12:00 Intake and Output (24hr x 4 totals) 06/11/18 06/12/18 06/13/18 06/14/18 05:59 05:59 05:59 05:59 Intake Total 5156 / 5156 405 / 405 5465 / 5465 Output Total 3545 / 3545 2290 / 2290 Balance 1611 / 1611 405 / 405 3175 / 3175
[2018-06-13] MEDS: MORPHINE SULFATE 2 MG/1 ML IVP PRN ×2 (19:13→22:46)
[2018-06-13] MEDS: DIAZEPAM 10 MG/2 ML (5 MG/1 ML) CARPUJECT IVP PRN (19:45)
[2018-06-14] MEDS: LORazepam 2 MG/1 ML VIAL IVP SCH ×3 (00:38→08:36)
[2018-06-14] MEDS: Sodium Chloride 0.9% 1,000 ML PRIMARY IV SCH ×3 (00:39→17:48)
[2018-06-14] MEDS: DIAZEPAM 10 MG/2 ML (5 MG/1 ML) CARPUJECT IVP PRN ×4 (01:15→21:42)
[2018-06-14] MEDS: LORazepam Inj(ETOH withdrawal) 2 MG/ML VIAL IVP PRN ×5 (02:21→22:49)
[2018-06-14] MEDS: MORPHINE SULFATE 2 MG/1 ML IVP PRN ×5 (02:21→22:41)
[2018-06-14] MEDS: Dexmedetomidine/NS 400 MCG/100 ML INFUS..BTL IV SCH ×5 (04:15→22:04)
[2018-06-14 05:55] LABS: BASOPHILS # (AUTO) 0.01 10*3/UL; BASOPHILS % (AUTO) 0.2 % (0-1); EOSINOPHILS # (AUTO) 0.05 10*3/UL; EOSINOPHILS % (AUTO) 0.8 % (0-8); Hematocrit [HCT] 30.1 % (42.0-52.0); Hemoglobin [HGB] 9.7 g/dL (14.0-18.0); LYMPHOCYTES # (AUTO) 1.08 10*3/uL; MEAN CORPUSCULAR HGB CONC 32.2 g/dL (33-37); MEAN PLATELET VOLUME 8.9 FL (7.4-12.2); MONOCYTES # (AUTO) 0.42 10*3/UL (0.3-0.8); MONOCYTES % (AUTO) 6.8 % (5-15); NEUTROPHILS # (AUTO) 4.65 10*3/UL; NEUTROPHILS % (AUTO) 74.6 % (50-80); RED BLOOD COUNT 3.46 10^6/uL (4.70-6.10)
[2018-06-14 05:59] LABS: PLATELET MORPHOLOGY COMMENT NORMAL MORPHOLOGY (NORM); RBC MORPHOLOGY COMMENT NORMAL MORPHOLOGY (NORM); WBC MORPHOLOGY COMMENT NORMAL MORPHOLOGY (NORM)
[2018-06-14 06:10] LABS: BLOOD UREA NITROGEN 9 mg/dL (7-22)
--- NOTE | 2018-06-14 07:51 | PDOC(PROG) ---
Date of Service: 06/14/18 Time of Service: 07:50 Interval History: Subjective Patient was laying in bed, earlier he was yelling for his Ashley, tried to ask him few questions however he would repeat the same question to me, still confused disoriented, he was given Valium as he was restless and he calmed down. No other information can be obtained from him. Objective : Data - Labs CBC and BMP: 06/14/18 05:40 06/14/18 05:40 Objective : Exam - General Additional General Exam Details: Confused, restless, calmed down after the Valium. - Head Head Exam: Normal Inspection - Eye Eye Exam: Normal Appearance - Neck Additional Neck Exam Details: Wound seemed to be clean. Drain still in place. - Respiratory Respiratory Exam: Clear to Auscultation - Bilaterally - Cardiovascular Cardiovascular Exam: RRR - GI/Abdominal GI/Abdominal Exam: Normal Bowel Sounds, Non Tender, Non Distended, Soft, No Organomegaly - Rectal Rectal Exam: Deferred - External Exam: Deferred - Extremities Extremities Exam: Normal Inspection - Neurological Additional Neurological Exam Details: Patient calmed down after the Valium. He was moving all his extremities. Was confused and disoriented prior to getting the Valium. - Integumentary Integumentary Exam: Normal Color Assessment and Plan - Patient Problems (1) Alcohol withdrawal Current Visit: Yes Status: Acute Comment: Continue Precedex, CIWA protocol. IV fluid and Supportive care. May consider phenobarbitone if he is still restless after the valium. This speaks to the and informed her about his current condition. Code(s): F10.239 - Alcohol dependence with withdrawal, unspecified Qualifiers: Complication of substance-induced condition: with delirium Qualified Code(s): F10.231 - Alcohol dependence with withdrawal delirium (2) Chronic neck and back pain Current Visit: Yes Status: Chronic Comment: IV pain medication written as needed. Code(s): M54.2 - Cervicalgia; M54.9 - Dorsalgia, unspecified; G89.29 - Other chronic pain (3) DMII (diabetes mellitus, type 2) Current Visit: Yes Status: Acute Comment: Seem to be stable. Code(s): E11.9 - Type 2 diabetes mellitus without complications Qualifiers: Diabetes mellitus halfway insulin use: without halfway use Diabetes mellitus complication status: without complication Qualified Code(s): E11.9 - Type 2 diabetes mellitus without complications (4) S/P cervical spinal fusion Current Visit: Yes Status: Acute Comment: Management per Dr. Hodgson. Did discuss with Dr. Hodgson DVT prophylaxis and he was okay with Lovenox so I think will start that tomorrow. Code(s): Z98.1 - Arthrodesis status
[2018-06-14] MEDS: PANTOPRAZOLE 40 MG TABLET PO SCH (08:36)
[2018-06-14] MEDS ORDERED: PHENOBARBITAL SODIUM 65 MG/1 ML VIAL IVP ONE (08:59)
[2018-06-14] MEDS: PANTOPRAZOLE IV 40 MG VIAL IVP SCH (09:49)
--- NOTE | 2018-06-14 09:58 | NEURO.PROG ---
Subjective Post Op Day: 2 Torrse Catheter: Yes Ambulating: No Additional Details: Mr. Mathews is currently being kept sedated to prevent him from harming himself. He is moving all 4 extremities equally and his vital signs are stable. He is afebrile and his O2 sats are in the mid 90s on room air. His anterior neck incision is dry and intact and the Prevena dressing on his posterior incision is intact and functioning. I spoke with Dr Hodgson and the plan for today will be to continue sedation per Dr Caldwell, to continue Prevena dressing which is currently functioning, continue incision care for his anterior incision with chlorhexidene wipes, to continue both hemovac drains which drained 150mls and 90mls overnight, and continue his torres catheter. Objective : Data - Labs CBC and BMP: 06/14/18 05:40 06/14/18 05:40 - Vital Signs Vital Signs and I&O: Vital Signs - Last Taken Temperature 97.7 F 06/14/18 07:52 Pulse Rate 63 06/14/18 09:00 Respiratory Rate 12 06/14/18 09:00 Blood Pressure 160/101 06/14/18 09:00 Pulse Ox 94 06/14/18 09:00 Intake and Output (24hr x 4 totals) 06/12/18 06/13/18 06/14/18 06/15/18 05:59 05:59 05:59 05:59 Intake Total 405 / 405 5465 / 5465 3395 / 3395 Output Total 2290 / 2290 2875 / 2875 Balance 405 / 405 3175 / 3175 520 / 520
[2018-06-14] MEDS: GABAPENTIN 300 MG CAPSULE PO SCH ×3 (10:16→20:22)
[2018-06-14] MEDS: FLUoxetine 20 MG CAPSULE PO SCH (10:17)
[2018-06-14] MEDS: Multivitamin Tab 1 TAB PO SCH (10:17)
[2018-06-14 14:23] LABS: VENOUS PH 7.5 (7.32-7.42)
[2018-06-14 18:06] LABS: HIV ANTIBODY NEGATIVE (N); HIV-1 P24 ANTIGEN NEGATIVE (N)
[2018-06-15] MEDS: LORazepam Inj(ETOH withdrawal) 2 MG/ML VIAL IVP PRN ×6 (00:14→22:38)
[2018-06-15] MEDS: Dexmedetomidine/NS 400 MCG/100 ML INFUS..BTL IV SCH ×8 (01:50→22:32)
[2018-06-15] MEDS: Sodium Chloride 0.9% 1,000 ML PRIMARY IV SCH ×2 (01:50→09:33)
[2018-06-15] MEDS: DIAZEPAM 10 MG/2 ML (5 MG/1 ML) CARPUJECT IVP PRN ×3 (03:22→15:59)
[2018-06-15] MEDS: MORPHINE SULFATE 2 MG/1 ML IVP PRN ×2 (04:44→16:09)
[2018-06-15 05:08] LABS: BLOOD UREA NITROGEN 6 mg/dL (7-22); SERUM ALBUMIN 3.2 g/dL (3.5-4.8)
[2018-06-15 06:03] LABS: BAND NEUTROPHILS % 0 % (0-10); BASOPHILS % (MANUAL) 0 % (0-1); EOSINOPHILS % (MANUAL) 1 % (0-8); Hematocrit [HCT] 29.4 % (42.0-52.0); Hemoglobin [HGB] 9.6 g/dL (14.0-18.0); MEAN CORPUSCULAR HEMOGLOBIN 28.5 PG (27-31); MEAN CORPUSCULAR HGB CONC 32.7 g/dL (33-37); MEAN CORPUSCULAR VOLUME 87 FL (80-90); MEAN PLATELET VOLUME 7.3 FL (7.4-12.2); METAMYELOCYTES % 0 %; MONOCYTES % (MANUAL) 6 % (0-12); MYELOCYTES % 0 %; NEUTROPHILS % (MANUAL) 78 % (50-80); PLATELET MORPHOLOGY COMMENT NORMAL MORPHOLOGY (NORM); PROMYELOCYTES % 0 %; RBC MORPHOLOGY COMMENT NORMAL MORPHOLOGY (NORM); RED BLOOD COUNT 3.37 10^6/uL (4.70-6.10); WBC MORPHOLOGY COMMENT NORMAL MORPHOLOGY (NORM)
[2018-06-15] MEDS ORDERED: PHENOBARBITAL SODIUM 65 MG/1 ML VIAL IVP ONE ×5 (07:05→09:26)
[2018-06-15] MEDS ORDERED: PHENOBARBITAL SODIUM 65 MG/1 ML VIAL ONE (07:05)
--- NOTE | 2018-06-15 07:46 | NEURO.PROG ---
Subjective Post Op Day: 3 Thomson Catheter: Yes Diet: NPO Ambulating: No Additional Details: Mr Mathews continues to be incoherent, not oriented to person, place or time. He moves all extremities in an attempt to get out of bed. His strength is good. He has bowel sounds in all 4 quadrants. V/S are stable. Thomson catheter in place. Anterior incision is dry and without erythema. The Prevena is intact and functioning on his posterior neck incision. Drainage in his right posterior drain was 90 ml overnight, serosanguinous. Drainage in his left posterior drain was 120ml overnight, watery and sanguinous. Plan on his drains per Dr. Hodgson and his continuous sedation per Dr. Caldwell. Objective : Data - Labs CBC and BMP: 06/15/18 04:10 06/15/18 04:10 - Vital Signs Vital Signs and I&O: Vital Signs - Last Taken Temperature 97.2 F 06/15/18 06:00 Pulse Rate 50 L 06/15/18 06:00 Respiratory Rate 20 06/15/18 06:00 Blood Pressure 144/94 06/15/18 06:00 Pulse Ox 96 06/15/18 05:58 Intake and Output (24hr x 4 totals) 06/13/18 06/14/18 06/15/18 06/16/18 05:59 05:59 05:59 05:59 Intake Total 5465 / 5465 3395 / 3395 3633 / 3633 Output Total 2290 / 2290 2875 / 2875 7160 / 7160 Balance 3175 / 3175 520 / 520 -3527 / -3527
[2018-06-15] MEDS ORDERED: LORazepam 2 MG/1 ML VIAL IVP ONE ×5 (07:56→16:08)
[2018-06-15] MEDS ORDERED: LORazepam 2 MG/1 ML VIAL ONE (07:58)
--- NOTE | 2018-06-15 08:58 | PDOC(PROG) ---
Date of Service: 06/15/18 Time of Service: 08:00 Interval History: Subjective Patient is still confused, agitated, restless trying to get out of the bed, not making sense. Does not answer questions appropriately. We had to give him multiple rounds of Ativan, phenobarbital and increase the dosage of Precedex to calm down as he trying to get out of the bed. He's trying to pull also on his catheter. After all the medication he seemed to settle down. Objective : Data - Labs CBC and BMP: 06/15/18 04:10 06/15/18 04:10 Objective : Exam - General Additional General Exam Details: Restless, trying to get out of the bed, pulling on catheter. - Head Head Exam: Normal Inspection - Eye Eye Exam: Normal Appearance - ENT ENT Exam: Normal Exam - Neck Additional Neck Exam Details: The wound looks clean anteriorly. - Respiratory Respiratory Exam: Clear to Auscultation - Bilaterally - Cardiovascular Cardiovascular Exam: No Murmur - GI/Abdominal GI/Abdominal Exam: Normal Bowel Sounds, Non Tender, Non Distended, Soft, No Organomegaly - Rectal Rectal Exam: Deferred - External Exam: Deferred - Extremities Additional Extremities Exam Details: Is moving all his extremities he is trying to get out of the bed. - Back Back Exam: Normal Inspection - Neurological Additional Neurological Exam Details: Moving all extremities psychiatric bed no focal deficits obvious present. Confused still. - Psychiatric Psychiatric Exam: Agitated - Integumentary Integumentary Exam: Normal Color Assessment and Plan - Patient Problems (1) Alcohol withdrawal Current Visit: Yes Status: Acute Comment: We gave him multiple rounds of phenobarbital, Ativan and Valium he seemed to somewhat settled down. We increase also the Precedex. I think if that doesn't work he may need to be intubated and put on propofol. Code(s): F10.239 - Alcohol dependence with withdrawal, unspecified Qualifiers: Complication of substance-induced condition: with delirium Qualified Code(s): F10.231 - Alcohol dependence with withdrawal delirium (2) DMII (diabetes mellitus, type 2) Current Visit: Yes Status: Acute Comment: Blood sugar acceptable. Code(s): E11.9 - Type 2 diabetes mellitus without complications Qualifiers: Diabetes mellitus shelter insulin use: without shelter use Diabetes mellitus complication status: without complication Qualified Code(s): E11.9 - Type 2 diabetes mellitus without complications (3) S/P cervical spinal fusion Current Visit: Yes Status: Acute Comment: Management per Dr. Hodgson. He is was okay to start to the [facility] Code(s): Z98.1 - Arthrodesis status
[2018-06-15] MEDS: GABAPENTIN 300 MG CAPSULE PO SCH ×3 (09:27→20:11)
[2018-06-15] MEDS: FLUoxetine 20 MG CAPSULE PO SCH (09:27)
[2018-06-15] MEDS: Multivitamin Tab 1 TAB PO SCH (09:28)
[2018-06-15] MEDS: PANTOPRAZOLE IV 40 MG VIAL IVP SCH (10:27)
[2018-06-15] MEDS: ENOXAPARIN SODIUM 40 MG/0.4 ML SYRINGE SUBCUT SCH (10:27)
--- NOTE | 2018-06-15 11:59 | NEURO.PROG ---
Subjective Post Op Day: 3 Pain Management: IV Ambulating: No Additional Details: Mr. Mathews remains heavily sedated secondary to agitation from delerium tremens/alcohol withdrawal. Afebrile. Vitals remain stable. Moves all extremities well when aroused. PLAN: Continue supportive care for alcohol withdrawal. Objective : Data - Labs CBC and BMP: 06/15/18 04:10 06/15/18 04:10 - Vital Signs Vital Signs and I&O: Vital Signs - Last Taken Temperature 97.3 F 06/15/18 09:00 Pulse Rate 53 L 06/15/18 11:00 Respiratory Rate 16 06/15/18 11:00 Blood Pressure 142/81 06/15/18 11:00 Pulse Ox 93 06/15/18 11:00 Intake and Output (24hr x 4 totals) 06/13/18 06/14/18 06/15/18 06/16/18 05:59 05:59 05:59 05:59 Intake Total 5465 / 5465 3395 / 3395 3633 / 3633 Output Total 2290 / 2290 2875 / 2875 7160 / 7160 2375 / 2375 Balance 3175 / 3175 520 / 520 -3527 / -3527 -2375 / -2375
[2018-06-15 15:44] LABS: VENOUS PH 7.48 (7.32-7.42)
[2018-06-16] MEDS: LORazepam Inj(ETOH withdrawal) 2 MG/ML VIAL IVP PRN ×8 (00:13→21:04)
[2018-06-16] MEDS: Dexmedetomidine/NS 400 MCG/100 ML INFUS..BTL IV SCH ×9 (01:36→23:43)
[2018-06-16 05:08] LABS: BLOOD UREA NITROGEN 7 mg/dL (7-22); SERUM ALBUMIN 3.2 g/dL (3.5-4.8)
[2018-06-16 05:49] LABS: Hematocrit [HCT] 31.4 % (42.0-52.0); Hemoglobin [HGB] 10.3 g/dL (14.0-18.0); MEAN CORPUSCULAR HEMOGLOBIN 28.5 PG (27-31); MEAN CORPUSCULAR HGB CONC 32.8 g/dL (33-37); MEAN CORPUSCULAR VOLUME 87 FL (80-90); MEAN PLATELET VOLUME 7.3 FL (7.4-12.2); RED BLOOD COUNT 3.62 10^6/uL (4.70-6.10)
[2018-06-16 05:50] LABS: BASOPHILS # (AUTO) 0.02 10*3/UL; EOSINOPHILS # (AUTO) 0.14 10*3/UL; EOSINOPHILS % (AUTO) 2.3 % (0-8); LYMPHOCYTES # (AUTO) 0.93 10*3/uL; MONOCYTES # (AUTO) 0.51 10*3/UL (0.3-0.8); MONOCYTES % (AUTO) 8.1 % (5-15); NEUTROPHILS # (AUTO) 4.65 10*3/UL; NEUTROPHILS % (AUTO) 74.4 % (50-80); PLATELET MORPHOLOGY COMMENT NORMAL MORPHOLOGY (NORM); RBC MORPHOLOGY COMMENT NORMAL MORPHOLOGY (NORM); WBC MORPHOLOGY COMMENT NORMAL MORPHOLOGY (NORM)
[2018-06-16 05:51] LABS: BASOPHILS % (AUTO) 0.3 % (0-1)
--- NOTE | 2018-06-16 07:10 | NEURO.PROG ---
Subjective Post Op Day: 4 Thomson Catheter: Yes Ambulating: No Additional Details: Mr. Mathews is afebrile and his VS are stable. He continues to be very restless and requiring Ativan at times to keep him from harming himself. 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 He was also able to raise his arms and touch his head. He is still not oriented to time and place. He is moving all 4s in an attempt to get out of bed. His anterior incision is dry and intact. The posterior Prevena is still in plac e and functioning. His left hemovac put out 100ml serosanguious drainage. His right hemovac put out 0ml. Plan to discontinue his right hemovac drain now and his left hemovac later today. Plan for sedation per Dr. Caldwell. Objective : Data - Labs CBC and BMP: 06/16/18 04:15 06/16/18 04:15 - Vital Signs Vital Signs and I&O: Vital Signs - Last Taken Temperature 97.1 F 06/16/18 06:46 Pulse Rate 74 06/16/18 06:46 Respiratory Rate 20 06/16/18 06:46 Blood Pressure 168/93 06/16/18 06:46 Pulse Ox 96 06/16/18 06:25 Intake and Output (24hr x 4 totals) 06/14/18 06/15/18 06/16/18 06/17/18 05:59 05:59 05:59 05:59 Intake Total 3395 / 3395 3633 / 3633 3908 / 3908 Output Total 2875 / 2875 7160 / 7160 4765 / 4765 Balance 520 / 520 -3527 / -3527 -857 / -857
--- NOTE | 2018-06-16 07:20 | PDOC(PROG) ---
Date of Service: 06/16/18 Time of Service: 07:00 Interval History: Subjective They did cut back on the Precedex to 1.4 MCG per KG per hour as he was more sedated, this morning according to the PA he did answer her by telling his name, followed some of the commands, then, however he tried to get out of the bed and he received Ativan. by The time I came in to see him he was under the effect of Ativan so still sleepy mumbling cannot understand him. No other information can be obtained from him. At least so far he is not requiring the amount of sedation that he needed yesterday. Objective : Data - Labs CBC and BMP: 06/16/18 04:15 06/16/18 04:15 Objective : Exam - General General Appearance: No Acute Distress, Obese Additional General Exam Details: Mumbling, not answering questions. - Head Head Exam: Normal Inspection - Eye Eye Exam: Normal Appearance - Neck Additional Neck Exam Details: The anterior neck wound looks clean. - Respiratory Respiratory Exam: Clear to Auscultation - Bilaterally - Cardiovascular Cardiovascular Exam: RRR - GI/Abdominal GI/Abdominal Exam: Normal Bowel Sounds, Non Tender, Non Distended, Soft, No Organomegaly - Rectal Rectal Exam: Deferred - External Exam: Deferred - Extremities Additional Extremities Exam Details: He is moving all his extremities. With no focal finding - Neurological Additional Neurological Exam Details: Mumbling, sleepy - Integumentary Integumentary Exam: Normal Color Assessment and Plan - Patient Problems (1) Alcohol withdrawal Current Visit: Yes Status: Acute Comment: Blood sugar is acceptable As I said in my note I did speak with the neurologist and he agreed with the current plan. We'll see how things go today and see whether we can taper some of the sedation Code(s): F10.239 - Alcohol dependence with withdrawal, unspecified Qualifiers: Complication of substance-induced condition: with delirium Qualified Code(s): F10.231 - Alcohol dependence with withdrawal delirium (2) DMII (diabetes mellitus, type 2) Current Visit: Yes Status: Acute Comment: Morning blood sugar acceptable Code(s): E11.9 - Type 2 diabetes mellitus without complications Qualifiers: Diabetes mellitus snf insulin use: without remote computer terminal operator use Diabetes mellitus complication status: without complication Qualified Code(s): E11.9 - Type 2 diabetes mellitus without complications (3) S/P cervical spinal fusion Current Visit: Yes Status: Acute Comment: Management per Dr. Hodgson. He is on Lovenox for prophylaxis.. Code(s): Z98.1 - Arthrodesis status
[2018-06-16] MEDS: MORPHINE SULFATE 2 MG/1 ML IVP PRN ×2 (07:56→13:51)
[2018-06-16] MEDS: GABAPENTIN 300 MG CAPSULE PO SCH ×3 (09:02→20:27)
[2018-06-16] MEDS: FLUoxetine 20 MG CAPSULE PO SCH (09:03)
[2018-06-16] MEDS: Multivitamin Tab 1 TAB PO SCH (09:03)
[2018-06-16] MEDS: ENOXAPARIN SODIUM 40 MG/0.4 ML SYRINGE SUBCUT SCH (09:08)
[2018-06-16] MEDS: PANTOPRAZOLE IV 40 MG VIAL IVP SCH (09:08)
[2018-06-16] MEDS: Acetaminophen 1000mg Inj 1,000 MG/100 ML VIAL IV PRN (09:45)
[2018-06-16] MEDS ORDERED: HALOPERIDOL LACTATE 5 MG/1 ML AMPULE IVP PRN (19:12)
[2018-06-16 23:28] LABS: VENOUS PH 7.47 (7.32-7.42)
[2018-06-17] MEDS: Dexmedetomidine/NS 400 MCG/100 ML INFUS..BTL IV SCH ×6 (03:11→20:28)
[2018-06-17 05:51] LABS: BLOOD UREA NITROGEN 6 mg/dL (7-22); SERUM ALBUMIN 3.3 g/dL (3.5-4.8)
[2018-06-17 05:54] LABS: Hematocrit [HCT] 31.7 % (42.0-52.0); Hemoglobin [HGB] 10.6 g/dL (14.0-18.0); MEAN CORPUSCULAR HEMOGLOBIN 28.8 PG (27-31); MEAN CORPUSCULAR HGB CONC 33.5 g/dL (33-37); MEAN CORPUSCULAR VOLUME 86 FL (80-90); RED BLOOD COUNT 3.68 10^6/uL (4.70-6.10)
[2018-06-17 05:55] LABS: BASOPHILS # (AUTO) 0.02 10*3/UL; BASOPHILS % (AUTO) 0.3 % (0-1); EOSINOPHILS # (AUTO) 0.13 10*3/UL; EOSINOPHILS % (AUTO) 2.2 % (0-8); LYMPHOCYTES # (AUTO) 0.96 10*3/uL; MEAN PLATELET VOLUME 6.7 FL (7.4-12.2); MONOCYTES # (AUTO) 0.51 10*3/UL (0.3-0.8); MONOCYTES % (AUTO) 8.4 % (5-15); NEUTROPHILS # (AUTO) 4.43 10*3/UL; NEUTROPHILS % (AUTO) 73.3 % (50-80); PLATELET MORPHOLOGY COMMENT NORMAL MORPHOLOGY (NORM); RBC MORPHOLOGY COMMENT NORMAL MORPHOLOGY (NORM); WBC MORPHOLOGY COMMENT NORMAL MORPHOLOGY (NORM)
[2018-06-17] MEDS: Acetaminophen 1000mg Inj 1,000 MG/100 ML VIAL IV PRN (07:22)
--- NOTE | 2018-06-17 07:31 | PDOC(PROG) ---
Date of Service: 06/17/18 Time of Service: 07:20 Interval History: Subjective Patient is awake moaning and crying he answers some of questions. He was able to tell me his name, date of . He couldn't tell me why he is in the hospital. He follows some of the commands. He was able to wiggle his toes, sq ueeze my fingers. Denied nausea or pain. He is not as restless as before he was just laying in bed. We started cutting back on his sedation last night. He did not need more Ativan since 11 PM last night. Objective : Data - Labs CBC and BMP: 06/17/18 05:10 06/17/18 05:10 Objective : Exam - General General Appearance: Obese - Head Head Exam: Normal Inspection - Eye Eye Exam: Normal Appearance - ENT ENT Exam: Normal Exam - Neck Neck Exam: Normal Inspection - Respiratory Additional Respiratory Exam Details: Crackles in his lung mostly on the left side. In addition there is transmitted sound the upper airway. There are secretions that were suctioned last night. - Cardiovascular Cardiovascular Exam: RRR - GI/Abdominal GI/Abdominal Exam: Normal Bowel Sounds, Non Tender, Non Distended, Soft, No Organomegaly - Rectal Rectal Exam: Deferred - External Exam: Deferred - Extremities Extremities Exam: Normal Inspection - Back Back Exam: Normal Inspection - Neurological Additional Neurological Exam Details: Awake, continue me his first name and his date of . Follow some of the commands. Cooperative. - Psychiatric Additional Psychiatric Exam Details: He is crying at times. Couldn't tell me why. - Integumentary Integumentary Exam: Normal Color Assessment and Plan - Patient Problems (1) Alcohol withdrawal Current Visit: Yes Status: Acute Comment: Seem to be much less agitated than before he is more quiet now. We would continue tapering him off the Precedex. Will order a chest x-ray as there are crackles in his lung. Will Speak with the pharmacy about nutrition may consider ProcalAmine supplementation now until we take him off the sedation and see his swallowing function. Code(s): F10.239 - Alcohol dependence with withdrawal, unspecified Qualifiers: Complication of substance-induced condition: with delirium Qualified Code(s): F10.231 - Alcohol dependence with withdrawal delirium (2) DMII (diabetes mellitus, type 2) Current Visit: Yes Status: Acute Comment: Blood sugar acceptable Code(s): E11.9 - Type 2 diabetes mellitus without complications Qualifiers: Diabetes mellitus group home insulin use: without group home use Diabetes mellitus complication status: without complication Qualified Code(s): E11.9 - Type 2 diabetes mellitus without complications (3) S/P cervical spinal fusion Current Visit: Yes Status: Acute Comment: Status post the neck fusion. Management per Dr. Hodgson. For DVT prophylaxis he is on Lovenox. GI prophylaxis on Protonix. As I said will speak with the pharmacy about ProcalAmine until he is off the sedation completely and see his swallowing function. For pain will give IV Tylenol. Code(s): Z98.1 - Arthrodesis status
--- NOTE | 2018-06-17 08:12 | NEURO.PROG ---
Subjective Post Op Day: 5 Thomson Catheter: Yes Ambulating: No Additional Details: This morning Mr Mathews is somwhat less sedated, following simple commands to squeeze hands and was not combative to being turned. He still does not comprehend his situation or whereabouts. He moans frequently and is receiving IV acetaminophen for pain though it is difficult to tell if his moaning is due to pain. He is afebrile, VSS. Labs within normal limits. Oxygen saturation in the mid 90's on 1L. He was noted to have crackles in his left upper lung field and a chest xray is pending. Dr Caldwell is also talking to pharmacy regarding his nutrition. Nighttime drainage in remaining hemovac was 0ml and drain was discontinued. The Prevena is still intact and functioning. Anterior incision is clean, dry and without erythema. Dr Hodgson was updated. Plan is to continue to decrease sedation and monitor lung and nutrition status per Dr Caldwell. Objective : Data - Labs CBC and BMP: 06/17/18 05:10 06/17/18 05:10 - Vital Signs Vital Signs and I&O: Vital Signs - Last Taken Temperature 96.6 F L 06/17/18 07:00 Pulse Rate 64 06/17/18 07:00 Respiratory Rate 22 06/17/18 07:00 Blood Pressure 145/96 06/17/18 07:00 Pulse Ox 99 06/17/18 07:00 Intake and Output (24hr x 4 totals) 06/15/18 06/16/18 06/17/18 06/18/18 05:59 05:59 05:59 05:59 Intake Total 3633 / 3633 3908 / 3908 3846 / 3846 Output Total 7160 / 7160 4765 / 4765 4060 / 4060 Balance -3527 / -3527 -857 / -857 -214 / -214
--- NOTE | 2018-06-17 08:38 | DI ---
XR CXR 1VW 06/17/2018 7:27 AM HISTORY: [facility] [place]ack[place] left upper lung Comparison: None. Findings: A single portable frontal view of the chest is submitted. Images demonstrate normal to slightly low lung volumes with patchy bibasilar opacities. There is no l arge pneumothorax or pleural effusion. The cardiomediastinal silhouette is within normal limits for t echnique with atheromatous calcifications in the arch of the tortuous thoracic aorta. The osseous str uctures are notable for surgical hardware over the cervicothoracic junction and right glenoid. Surgic al simón objects over the visualized neck and upper mediastinum. A neural stimulator projects over the lower thoracic spine. Impression: 1. There are patchy bibasilar opacities that could represent atelectasis versus early airspace diseas e in the correct clinical setting. Upright imaging may be obtained for further characterization as in dicated. Repeat imaging is recommended 6 weeks following completion of therapy in order to ensure res olution.
[2018-06-17] MEDS ORDERED: LORazepam 2 MG/1 ML VIAL IVP ONE (09:01)
[2018-06-17] MEDS ORDERED: HALOPERIDOL LACTATE 5 MG/1 ML AMPULE IVP ONE ×2 (09:07→10:47)
[2018-06-17] MEDS: PANTOPRAZOLE IV 40 MG VIAL IVP SCH (09:34)
[2018-06-17] MEDS: ENOXAPARIN SODIUM 40 MG/0.4 ML SYRINGE SUBCUT SCH (09:34)
[2018-06-17] MEDS: MORPHINE SULFATE 2 MG/1 ML IVP PRN (09:57)
[2018-06-17] MEDS: HALOPERIDOL LACTATE 5 MG/1 ML AMPULE IVP ONE ×2 (10:04→10:51)
[2018-06-17] MEDS: Meropenem Inj 1 GM in Sodium Chloride 0.9% 100 ML IV SCH ×2 (10:36→17:13)
[2018-06-17] MEDS: Multivitamin Tab 1 TAB PO SCH (10:41)
[2018-06-17] MEDS: FLUoxetine 20 MG CAPSULE PO SCH (10:41)
[2018-06-17] MEDS: GABAPENTIN 300 MG CAPSULE PO SCH ×3 (10:41→22:05)
[2018-06-17] MEDS: DIAZEPAM 10 MG/2 ML (5 MG/1 ML) CARPUJECT IVP PRN (11:17)
[2018-06-17] MEDS: Aa 3%/Electrolyte-Tpn/Gly 1,000 ML PRIMARY IV SCH (11:50)
[2018-06-17] MEDS ORDERED: HALOPERIDOL LACTATE 5 MG/1 ML AMPULE IVP PRN ×2 (11:54→16:10)
[2018-06-17] MEDS ORDERED: Propofol 1,000 MG/100 ML VIAL IV ONE (13:05)
[2018-06-17] MEDS ORDERED: ETOMIDATE 2 MG/1 ML - 20 ML IVP ONE (13:06)
[2018-06-17] MEDS ORDERED: SUCCINYLCHOLINE CHLORIDE 20 MG/1 ML - 10 ML ONE (13:06)
[2018-06-17] MEDS ORDERED: Sodium Chloride 0.9% 500 ML ONE ×2 (13:06→16:56)
--- NOTE | 2018-06-17 14:57 | DI ---
CT Head WO Contrast 06/17/2018 9:27 AM History: [facility] [place] ^confusion Comparison: 06/12/2018. Procedure: Noncontrast axial, sagittal, and coronal CT images through the head were obtained. Findings: There is no acute intracranial hemorrhage or extra-axial fluid collection. The ventricles a re normal in size and configuration for age. There is normal pyle-white differentiation without focal mass or mass-effect. The visualized portions of the paranasal sinuses are clear. Orbits and facial soft tissues are unremarkable. Review of the osseous structures shows no depressed calvarial fractur e or aggressive osseous lesion. The mastoid air cells are clear. Impression: No acute intracranial findings. Consider MRI if there is continuing clinical concern.
--- NOTE | 2018-06-17 15:17 | DI ---
CT Chest WO Contrast 06/17/2018 9:27 AM History: [facility] – [place] ^persistent confusion, crackles in the lungs Comparison: None. Technique: Noncontrast CT images through the chest were obtained for review in the axial, sagittal, a nd coronal planes. Findings: Evaluation of the lungs demonstrates no dense consolidation. There is a small right pleural effusion with trace left pleural fluid. There is no pneumothorax. No pulmonary nodules are noted. The airways are patent with no endobronchial lesion. There is no mediastinal or hilar lymphadenopathy . The aorta demonstrates normal course and caliber. The main pulmonary artery is dilated at 3.4 cm. H eart size is within normal limits with no pericardial effusion. There are atheromatous aortic and cor onary artery calcifications. The thyroid exhibits normal CT morphology. Osseous structures are notable for surgical hardware at the cervicothoracic junction with multilevel degenerative endplate changes. There is anterior cervical fusion with bilateral transpedicular cervic othoracic screws, vertical struts, and fusion graft material. There are simón in the skin overlying the visualized surgical bed. There is a heterogeneous mass in the deep soft tissues with attenuation slightly higher than simple fluid. The visualized upper abdominal structures are notable for surgical changes that most likely represent Daniel-en-Y gastric bypass surgery. There is rectus diastases. Impression: 1. There are postsurgical changes at the cervicothoracic junction with a heterogeneous mass in the do rsal deep soft tissues overlying the surgical bed, incompletely characterized on this noncontrast exa m. Differential considerations include hematoma/seroma as well as phlegmon or abscess in the correct clinical setting. 2. There is a small right pleural effusion without dense consolidation. 3. The main pulmonary artery is dilated, a finding associated with pulmonary artery hypertension.
[2018-06-17] MEDS: LORazepam Inj(ETOH withdrawal) 2 MG/ML VIAL IVP PRN (20:28)
[2018-06-18] MEDS: Dexmedetomidine/NS 400 MCG/100 ML INFUS..BTL IV SCH ×4 (00:33→13:30)
[2018-06-18] MEDS: Aa 3%/Electrolyte-Tpn/Gly 1,000 ML PRIMARY IV SCH ×2 (00:33→15:26)
[2018-06-18] MEDS: Meropenem Inj 1 GM in Sodium Chloride 0.9% 100 ML IV SCH ×2 (00:43→08:48)
[2018-06-18] MEDS: LORazepam Inj(ETOH withdrawal) 2 MG/ML VIAL IVP PRN ×4 (04:09→22:17)
[2018-06-18 04:40] LABS: BASOPHILS % (AUTO) 2 % (0-1); EOSINOPHILS % (AUTO) 3.7 % (0-8); Hematocrit [HCT] 32.9 % (42.0-52.0); Hemoglobin [HGB] 11.1 g/dL (14.0-18.0); MEAN CORPUSCULAR HGB CONC 33.8 g/dL (33-37); MEAN CORPUSCULAR VOLUME 86 FL (80-90); MEAN PLATELET VOLUME 7.1 FL (7.4-12.2); MONOCYTES % (AUTO) 11.1 % (5-15); NEUTROPHILS % (AUTO) 65.9 % (50-80); RED BLOOD COUNT 3.83 10^6/uL (4.70-6.10)
[2018-06-18 04:41] LABS: BASOPHILS # (AUTO) 0.01 10*3/UL; EOSINOPHILS # (AUTO) 0.23 10*3/UL; LYMPHOCYTES # (AUTO) 1.2 10*3/uL; MONOCYTES # (AUTO) 0.7 10*3/UL (0.3-0.8); NEUTROPHILS # (AUTO) 4.15 10*3/UL; PLATELET MORPHOLOGY COMMENT NORMAL MORPHOLOGY (NORM); RBC MORPHOLOGY COMMENT NORMAL MORPHOLOGY (NORM); WBC MORPHOLOGY COMMENT NORMAL MORPHOLOGY (NORM)
[2018-06-18 05:00] LABS: BLOOD UREA NITROGEN 8 mg/dL (7-22); SERUM ALBUMIN 3.4 g/dL (3.5-4.8)
[2018-06-18] MEDS: MORPHINE SULFATE 2 MG/1 ML IVP PRN ×2 (05:46→14:07)
--- NOTE | 2018-06-18 06:38 | NEURO.PROG ---
Subjective Post Op Day: 6 Thomson Catheter: Yes Ambulating: No Additional Details: Mr Mathews is awake and alert, quite conversational, though not oriented to time and place. He responded with surprise that his neck surgery was done front and back. 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 His anterior incision is dry and intact. The Provena is intact and functioning on his posterior incision. Plan will be to discontinue the Provena tomorrow. Continue medical management by Dr. Caldwell. Objective : Data - Labs CBC and BMP: 06/18/18 04:35 06/18/18 04:35 - Vital Signs Vital Signs and I&O: Vital Signs - Last Taken Temperature 96.8 F 06/18/18 04:00 Pulse Rate 74 06/18/18 06:00 Respiratory Rate 20 06/18/18 06:00 Blood Pressure 138/84 06/18/18 06:00 Pulse Ox 95 06/18/18 06:00 Intake and Output (24hr x 4 totals) 06/16/18 06/17/18 06/18/18 06/19/18 05:59 05:59 05:59 05:59 Intake Total 3908 / 3908 3846 / 3846 3209 / 3209 Output Total 4765 / 4765 4060 / 4060 3325 / 3325 Balance -857 / -857 -214 / -214 -116 / -116
[2018-06-18] MEDS: GABAPENTIN 300 MG CAPSULE PO SCH ×3 (08:31→20:05)
[2018-06-18] MEDS: FLUoxetine 20 MG CAPSULE PO SCH (08:32)
[2018-06-18] MEDS: Multivitamin Tab 1 TAB PO SCH (08:32)
[2018-06-18] MEDS: PANTOPRAZOLE IV 40 MG VIAL IVP SCH (08:48)
[2018-06-18] MEDS: ENOXAPARIN SODIUM 40 MG/0.4 ML SYRINGE SUBCUT SCH (08:49)
[2018-06-18] MEDS ORDERED: Lactated Ringers 1,000 ML PRIMARY IV ONE (09:39)
--- NOTE | 2018-06-18 12:05 | PDOC(PROG) ---
Interval History: Patient is sedated on Precedex for his alcohol withdrawal Objective : Data - Labs CBC and BMP: 06/18/18 04:35 06/18/18 04:35 Objective : Exam - General General Appearance: No Acute Distress - Respiratory Respiratory Exam: Clear to Auscultation - Bilaterally, Breathing Non Labored, Normal To Percussion, Normal to Percussion and Palpation - Cardiovascular Cardiovascular Exam: RRR, No Murmur, No Clicks, No Gallops, No Rubs, PMI Non- Displaced - GI/Abdominal GI/Abdominal Exam: Normal Bowel Sounds, Non Tender, Non Distended, Soft, No Masses, No Hepatomegaly, No Splenomegaly, No Organomegaly - Extremities Extremities Exam: +1 Edema Assessment and Plan - Patient Problems (1) Alcohol withdrawal Current Visit: Yes Status: Acute Comment: Severe alcohol withdrawal we'll start decreasing Precedex. Patient was on 5 different prescriptions for oxycodone and Percocet I have stopped all of them except 1 and also stopped his Valium I believe he was on too many narcotics and antiemetics to get a clear picture on how severe his alcohol withdrawals are. He has when necessary C [place] with Ativan and PRECEDEX WHICH IS NOW BEING ESCALATED WE WILL SEE THE PATIENT DOES. I WILL STOP HIS ANTIBIOTICS SINCE I SEE NO SIGNS OF PNEUMONIA. THERE IS A SWELLING IN HIS NECK SEEN ON CT DR. ALVARADO CALLED DR. HODGSON ABOUT IT AND HE IS AWARE. Dr. 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 Hodgson Code(s): Z98.1 - Arthrodesis status
[2018-06-18] MEDS: Acetaminophen 1000mg Inj 1,000 MG/100 ML VIAL IV PRN (13:30)
[2018-06-18] MEDS: oxyCODONE/APAP 10/325 Tab 1 EACH TAB PO PRN (18:27)
[2018-06-18] MEDS ORDERED: Sodium Chloride 0.9% 1,000 ML PRIMARY IV ONE (21:24)
[2018-06-18] MEDS: CYCLOBENZAPRINE 10 MG TABLET PO SCH (21:53)
[2018-06-19] MEDS: oxyCODONE/APAP 10/325 Tab 1 EACH TAB PO PRN ×4 (00:06→15:15)
[2018-06-19] MEDS: LORazepam Inj(ETOH withdrawal) 2 MG/ML VIAL IVP PRN ×6 (00:14→17:20)
[2018-06-19 05:17] LABS: BASOPHILS # (AUTO) 0.04 10*3/UL; BASOPHILS % (AUTO) 0.6 % (0-1); EOSINOPHILS # (AUTO) 0.18 10*3/UL; EOSINOPHILS % (AUTO) 2.6 % (0-8); LYMPHOCYTES # (AUTO) 1.68 10*3/uL; MEAN CORPUSCULAR HEMOGLOBIN 27.6 PG (27-31); MEAN CORPUSCULAR HGB CONC 32.4 g/dL (33-37); MEAN CORPUSCULAR VOLUME 85.4 FL (80-90); MEAN PLATELET VOLUME 9.2 FL (7.4-12.2); MONOCYTES # (AUTO) 0.72 10*3/UL (0.3-0.8); MONOCYTES % (AUTO) 10.3 % (5-15); NEUTROPHILS # (AUTO) 4.36 10*3/UL; NEUTROPHILS % (AUTO) 62.2 % (50-80); RED BLOOD COUNT 3.98 10^6/uL (4.70-6.10)
[2018-06-19 05:29] LABS: PLATELET MORPHOLOGY COMMENT NORMAL MORPHOLOGY (NORM); RBC MORPHOLOGY COMMENT NORMAL MORPHOLOGY (NORM); WBC MORPHOLOGY COMMENT NORMAL MORPHOLOGY (NORM)
[2018-06-19 05:32] LABS: BLOOD UREA NITROGEN 8 mg/dL (7-22); SERUM ALBUMIN 3.5 g/dL (3.5-4.8)
[2018-06-19] MEDS ORDERED: POTASSIUM CHLORIDE 20 MEQ TAB PO ONE (06:06)
[2018-06-19] MEDS: PANTOPRAZOLE IV 40 MG VIAL IVP SCH (08:06)
[2018-06-19] MEDS: GABAPENTIN 300 MG CAPSULE PO SCH ×3 (08:07→22:06)
[2018-06-19] MEDS: POTASSIUM CHLORIDE 20 MEQ TAB PO SCH ×2 (08:08→22:07)
[2018-06-19] MEDS: ENOXAPARIN SODIUM 40 MG/0.4 ML SYRINGE SUBCUT SCH (08:08)
[2018-06-19] MEDS: FLUoxetine 20 MG CAPSULE PO SCH (08:08)
[2018-06-19] MEDS: Multivitamin Tab 1 TAB PO SCH (08:08)
[2018-06-19] MEDS: CYCLOBENZAPRINE 10 MG TABLET PO SCH ×3 (08:08→22:06)
--- NOTE | 2018-06-19 09:26 | NEURO.PROG ---
Subjective Post Op Day: 08/13 Pain Management: IV Thomson Catheter: Yes Flatus: Yes Diet: Regular Ambulating: Yes Additional Details: Awake, reclining comfortably in bedside chair. Oriented to self, confused. Denies neck pain. Denies arm pain, numbness, tingling. Incisions - clean/dry/intact; healing well. Moving all extremities well. Starting to eat some, but limited PLAN: 1.) Continue supportive care for alcohol withdrawals, still requiring Atavan for tachycardia and hypertension. 2.) Social work working on placement disposition after hospital discharge, patient stated willingness to go to rehab to transition to home. Objective : Data - Labs CBC and BMP: 06/19/18 04:10 06/19/18 04:10 - Vital Signs Vital Signs and I&O: Vital Signs - Last Taken Temperature 97.7 F 06/19/18 07:46 Pulse Rate 123 H 06/19/18 07:49 Respiratory Rate 22 06/19/18 07:49 Blood Pressure 154/100 06/19/18 07:46 Pulse Ox 98 06/19/18 07:00 Intake and Output (24hr x 4 totals) 06/17/18 06/18/18 06/19/18 06/20/18 05:59 05:59 05:59 05:59 Intake Total 3846 / 3846 3209 / 3209 3309 / 3309 Output Total 4060 / 4060 3325 / 3325 2830 / 2830 Balance -214 / -214 -116 / -116 479 / 47
--- NOTE | 2018-06-19 10:32 | PDOC(PROG) ---
Interval History: Patient is awake alert still requiring some Ativan for see what scoring tachycardia. No chest pain nausea or vomiting he appears very weak and needs assistance to ambulate Objective : Data - Labs CBC and BMP: 06/19/18 04:10 06/19/18 04:10 Objective : Exam - General General Appearance: Cooperative, Mild Distress - Respiratory Respiratory Exam: Clear to Auscultation - Bilaterally, Breathing Non Labored, Normal To Percussion, Normal to Percussion and Palpation - Cardiovascular Cardiovascular Exam: RRR, No Murmur, No Clicks, No Gallops, No Rubs, PMI Non- Displaced - GI/Abdominal GI/Abdominal Exam: Normal Bowel Sounds, Non Tender, Non Distended, Soft, No Masses, No Hepatomegaly, No Splenomegaly, No Organomegaly Assessment and Plan - Patient Problems (1) Alcohol withdrawal Current Visit: Yes Status: Acute Comment: Continue ciwa with Ativan still requiring some Ativan has some tachycardia and hypertension we will add some Toprol-XL this is hard to figure out if it's from pain which he denies aura is underlying baseline or from withdrawal we will start some beta blockers as well discuss with neurosurgery Code(s): F10.239 - Alcohol dependence with withdrawal, unspecified Qualifiers: Complication of substance-induced condition: with delirium Qualified Code(s): F10.231 - Alcohol dependence with withdrawal delirium (2) DMII (diabetes mellitus, type 2) Current Visit: Yes Status: Acute Comment: Stable Code(s): E11.9 - Type 2 diabetes mellitus without complications Qualifiers: Diabetes mellitus [facility] insulin use: without oil heaterman use Diabetes mellitus complication status: without complication Qualified Code(s): E11.9 - Type 2 diabetes mellitus without complications (3) S/P cervical spinal fusion Current Visit: Yes Status: Acute Comment: Deferred Dr. Hodgson for PTOT orders and pain control as an outpatient I did make him aware of the CT scan results of a possible seroma in his neck he said he would look at it but he was not worried that walker in the room when I discussed this as well Code(s): Z98.1 - Arthrodesis status
[2018-06-19] MEDS: Dexmedetomidine/NS 400 MCG/100 ML INFUS..BTL IV SCH ×2 (16:17→22:05)
[2018-06-20] MEDS: LORazepam Inj(ETOH withdrawal) 2 MG/ML VIAL IVP PRN ×3 (01:14→21:14)
[2018-06-20] MEDS: Dexmedetomidine/NS 400 MCG/100 ML INFUS..BTL IV SCH ×6 (02:10→23:30)
[2018-06-20 05:20] LABS: BASOPHILS # (AUTO) 0.03 10*3/UL; BASOPHILS % (AUTO) 0.4 % (0-1); EOSINOPHILS % (AUTO) 2.5 % (0-8); Hematocrit [HCT] 31.7 % (42.0-52.0); Hemoglobin [HGB] 10.1 g/dL (14.0-18.0); LYMPHOCYTES # (AUTO) 1.38 10*3/uL; MEAN CORPUSCULAR HEMOGLOBIN 27.7 PG (27-31); MEAN CORPUSCULAR HGB CONC 31.9 g/dL (33-37); MEAN CORPUSCULAR VOLUME 87.1 FL (80-90); MEAN PLATELET VOLUME 9.1 FL (7.4-12.2); MONOCYTES # (AUTO) 0.76 10*3/UL (0.3-0.8); MONOCYTES % (AUTO) 9.7 % (5-15); NEUTROPHILS # (AUTO) 5.48 10*3/UL; NEUTROPHILS % (AUTO) 69.7 % (50-80); RED BLOOD COUNT 3.64 10^6/uL (4.70-6.10)
[2018-06-20 05:22] LABS: PLATELET MORPHOLOGY COMMENT NORMAL MORPHOLOGY (NORM); RBC MORPHOLOGY COMMENT NORMAL MORPHOLOGY (NORM); WBC MORPHOLOGY COMMENT NORMAL MORPHOLOGY (NORM)
[2018-06-20 05:41] LABS: BLOOD UREA NITROGEN 7 mg/dL (7-22); SERUM ALBUMIN 3.2 g/dL (3.5-4.8)
--- NOTE | 2018-06-20 08:25 | NEURO.PROG ---
Subjective Post Op Day: 8 Thomson Catheter: No Ambulating: No Additional Details: Mr. Mathews is sedated this morning, on a Precedex drip per Dr Ramirez, following hallucinations and out of control behavior yesterday afternoon that was not controlled with Ativan. It is believed that this is still a result of his delirium tremens. Vital signs and lab work remain stable. Incisions are dry and intact. The social work contact with a post op rehab bed in [place] will proceed, but with a delay pending his mental status. Objective : Data - Labs CBC and BMP: 06/20/18 04:40 06/20/18 04:40 - Vital Signs Vital Signs and I&O: Vital Signs - Last Taken Temperature 97.7 F 06/20/18 07:00 Pulse Rate 56 L 06/20/18 07:00 Respiratory Rate 17 06/20/18 07:00 Blood Pressure 131/84 06/20/18 07:00 Pulse Ox 97 06/20/18 07:00 Intake and Output (24hr x 4 totals) 06/18/18 06/19/18 06/20/18 06/21/18 05:59 05:59 05:59 05:59 Intake Total 3209 / 3209 3309 / 3309 691 / 691 Output Total 3325 / 3325 2830 / 2830 494 / 494 Balance -116 / -116 479 / 479 197 / 197
[2018-06-20] MEDS: PANTOPRAZOLE IV 40 MG VIAL IVP SCH (09:16)
[2018-06-20] MEDS: ENOXAPARIN SODIUM 40 MG/0.4 ML SYRINGE SUBCUT SCH (09:17)
[2018-06-20] MEDS: GABAPENTIN 300 MG CAPSULE PO SCH ×3 (10:09→20:07)
[2018-06-20] MEDS: POTASSIUM CHLORIDE 20 MEQ TAB PO SCH ×2 (10:09→20:08)
[2018-06-20] MEDS: CYCLOBENZAPRINE 10 MG TABLET PO SCH ×3 (10:09→20:08)
[2018-06-20] MEDS: Multivitamin Tab 1 TAB PO SCH (10:09)
[2018-06-20] MEDS: FLUoxetine 20 MG CAPSULE PO SCH (10:09)
--- NOTE | 2018-06-20 12:39 | PDOC(PROG) ---
Interval History: Patient is again in DTs sedated on the Precedex drip discussed with the eICU through nursing recommended keeping the patient sedated for the next 2 days. Labs were reviewed us with nursing Objective : Data - Labs CBC and BMP: 06/20/18 04:40 06/20/18 04:40 Objective : Exam - General General Appearance: Cooperative - Respiratory Respiratory Exam: Clear to Auscultation - Bilaterally, Breathing Non Labored, Normal To Percussion, Normal to Percussion and Palpation - Cardiovascular Cardiovascular Exam: RRR, No Murmur, No Clicks, No Gallops, No Rubs, PMI Non- Displaced - GI/Abdominal GI/Abdominal Exam: Normal Bowel Sounds, Non Tender, Non Distended, Soft, No Masses, No Hepatomegaly, No Splenomegaly, No Organomegaly Assessment and Plan - Patient Problems (1) Alcohol withdrawal Current Visit: Yes Status: Acute Comment: Can continue Precedex drip keep patient sedated davi is a heavy drinker with around 12 beers a day. 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
[2018-06-20] MEDS: oxyCODONE/APAP 10/325 Tab 1 EACH TAB PO PRN (18:31)
[2018-06-21] MEDS: Dexmedetomidine/NS 400 MCG/100 ML INFUS..BTL IV SCH ×3 (03:15→13:25)
[2018-06-21 04:29] LABS: BASOPHILS # (AUTO) 0.05 10*3/UL; BASOPHILS % (AUTO) 0.9 % (0-1); EOSINOPHILS # (AUTO) 0.24 10*3/UL; EOSINOPHILS % (AUTO) 4.6 % (0-8); Hematocrit [HCT] 34.1 % (42.0-52.0); LYMPHOCYTES # (AUTO) 1.54 10*3/uL; MEAN CORPUSCULAR HGB CONC 32.3 g/dL (33-37); MEAN CORPUSCULAR VOLUME 86.8 FL (80-90); MEAN PLATELET VOLUME 9.1 FL (7.4-12.2); MONOCYTES # (AUTO) 0.44 10*3/UL (0.3-0.8); MONOCYTES % (AUTO) 8.3 % (5-15); NEUTROPHILS # (AUTO) 2.99 10*3/UL; NEUTROPHILS % (AUTO) 56.8 % (50-80); RED BLOOD COUNT 3.93 10^6/uL (4.70-6.10)
[2018-06-21] MEDS: oxyCODONE/APAP 10/325 Tab 1 EACH TAB PO PRN ×2 (04:49→10:00)
[2018-06-21 04:50] LABS: PLATELET MORPHOLOGY COMMENT NORMAL MORPHOLOGY (NORM); RBC MORPHOLOGY COMMENT NORMAL MORPHOLOGY (NORM); WBC MORPHOLOGY COMMENT NORMAL MORPHOLOGY (NORM)
[2018-06-21 04:57] LABS: BLOOD UREA NITROGEN 9 mg/dL (7-22); SERUM ALBUMIN 3.5 g/dL (3.5-4.8)
[2018-06-21] MEDS: POTASSIUM CHLORIDE 20 MEQ TAB PO SCH ×2 (08:08→20:11)
[2018-06-21] MEDS: GABAPENTIN 300 MG CAPSULE PO SCH ×3 (08:08→20:12)
[2018-06-21] MEDS: FLUoxetine 20 MG CAPSULE PO SCH (08:08)
[2018-06-21] MEDS: ENOXAPARIN SODIUM 40 MG/0.4 ML SYRINGE SUBCUT SCH (08:09)
[2018-06-21] MEDS: Multivitamin Tab 1 TAB PO SCH (08:09)
[2018-06-21] MEDS: CYCLOBENZAPRINE 10 MG TABLET PO SCH ×3 (08:09→20:12)
[2018-06-21] MEDS: PANTOPRAZOLE IV 40 MG VIAL IVP SCH (08:09)
--- NOTE | 2018-06-21 10:26 | NEURO.PROG ---
Subjective Post Op Day: 9 Pain Management: PO Thomson Catheter: No Diet: Regular Ambulating: Yes Additional Details: Mr Mathews is awake and alert this morning on a decreasing Precedex drip. He is oriented x3, sitting up in a chair. He has ambulated with PT this morning and is wanting to get to [place] for his 's birthday next week. He complains of pain in his lower back, but denies surgical site pain at this time. His anterior incision is dry and intact. His posterior incision is dry with Silverlon intact. Plan to continue to mobilize. Plan for weaning from Precedex per Dr. Ramirez Objective : Data - Labs CBC and BMP: 06/21/18 03:53 06/21/18 03:53 - Vital Signs Vital Signs and I&O: Vital Signs - Last Taken Temperature 97.9 F 06/21/18 09:28 Pulse Rate 63 06/21/18 09:30 Respiratory Rate 18 06/21/18 09:30 Blood Pressure 124/81 06/21/18 09:28 Pulse Ox 95 06/21/18 09:28 Intake and Output (24hr x 4 totals) 06/19/18 06/20/18 06/21/18 06/22/18 05:59 05:59 05:59 05:59 Intake Total 3309 / 3309 691 / 691 1997 520 / 520 Output Total 2830 / 2830 494 / 494 551 / 551 Balance 479 / 479 197 / 197 1447 / 1447 520 / 520
--- NOTE | 2018-06-21 11:51 | PDOC(PROG) ---
Interval History: Patient is much more alert this morning and oriented 3 no complaints Objective : Data - Labs CBC and BMP: 06/21/18 03:53 06/21/18 03:53 Objective : Exam - General General Appearance: No Acute Distress, Cooperative - Respiratory Respiratory Exam: Clear to Auscultation - Bilaterally, Breathing Non Labored, Normal To Percussion, Normal to Percussion and Palpation - Cardiovascular Cardiovascular Exam: RRR, No Murmur, No Clicks, No Gallops, No Rubs, PMI Non- Displaced - GI/Abdominal GI/Abdominal Exam: Normal Bowel Sounds, Non Tender, Non Distended, Soft, No Masses, No Hepatomegaly, No Splenomegaly, No Organomegaly - Extremities Extremities Exam: No Clubbing Present, No Edema Present Assessment and Plan - Patient Problems (1) Alcohol withdrawal Current Visit: Yes Status: Acute Comment: We are decreasing the Precedex drip Thomson he can be off the drip and will be with resolution of his alcohol withdrawal syndrome with the acute encephalopathy and delirium Code(s): F10.239 - Alcohol dependence with withdrawal, unspecified Qualifiers: Complication of substance-induced condition: with delirium Qualified Code(s): F10.231 - Alcohol dependence with withdrawal delirium (2) DMII (diabetes mellitus, type 2) Current Visit: Yes Status: Acute Comment: Stable Code(s): E11.9 - Type 2 diabetes mellitus without complications Qualifiers: 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
[2018-06-21] MEDS: HYDROcodone-APAP 10 MG-325 MG TABLET PO PRN ×3 (13:55→21:44)
--- NOTE | 2018-06-21 15:25 | PTI REPORT ---
Thank you for the referral of Keith Mathews. He was seen on 06/21/18 for an inpatient evaluation status post cervical fusion. SUBJECTIVE: The patient is a 57-year-old male who underwent a cervical fusion with an anterior approach and two days later underwent a cervical fusion with a posterior approach. The patient has been in the ICU since his last surgery as he has been detoxing during this time and we have not been able to see him. Per nursing report, he is doing much better today. He is still on IV medication to help with some of his withdrawal symptoms and that will be discontinued tomorrow. He is on approximately half the dose at this time. They state that he has been up with his cane and staff and is unsteady, but overall doing better. Per PA (Michelle Walker) report, the patient is not able to get into [facility] and he will have to return back home and we need to assess his safety for home. The therapist did talk with discharge nursing staff upstairs and they state that they are still waiting to hear from [facility] over in [place] to see if he will be able to go there and rehab for a bit before returning back home. Right now he has not been accepted but they are thinking that he will be and that he will be able to go over there on Sunday, which would probably be a more appropriate choice for the patient for his overall safety and healing up. The patient does live in [place] with his . He states that they do have stairs at their home to get into the basement but he doesn't use those much. He states that he primarily walks with a cane. He does have complaints of peripheral neuropathy secondary to his diabetes. The patient really wants to get out and ride his motorcycle, but he states that he does understand that with this recent surgery that is not the safest right at this time. The patient reports minimal neck pain and overall feels that he is doing well and would like to get up and walk around. PAST MEDICAL HISTORY: Past medical history can be found in the patient's medical record. OBJECTIVE FINDINGS: General observations: The patient was alert and oriented to setting upon PT arrival. The patient does have an IV in place and we did place the [employer] neck collar around him while he was sitting up in the chair. Transfers: A gait belt was placed around the patient and he was able to transfer to a standing position with contact guard assist x1 for safety. The patient demonstrated poor initial standing balance and did require hand hold assist on the left using the IV pole and had his cane in his right hand. Following ambulation the patient was able to transfer back into the chair with contact guard assist x1 for safety. His cervical collar was removed as he only needs to have that when he is up and walking. Ambulation: The patient ambulated approximately 50 feet with the cane and contact guard assist x1 for safety. The patient was a little wobbly; he never did have a loss of balance but overall was just wobbly. The therapist did get a front wheeled walker and had the patient try this as he does have one at home to use. The patient did much better and demonstrated a much safer gait pattern with using the front wheeled walker. We finished ambulating an additional 100 feet with the front wheeled walker. ASSESSMENT: The patient has fair rehab potential secondary to his age and past medical history and current status. Short-Term Goals: To be met by discharge from inpatient: Patient will be able to transfer from bed to stand safely and independently. Patient will be able to ambulate at least 150 feet safely with front wheeled walker. Patient will be able to ambulate up and down at least 5 stairs safely with appropriate assistive device. Patient will be able to don and doff his cervical collar independently. Long-Term Goals: To be met following discharge from inpatient: We are still waiting to hear back from [facility] to see if this will be an appropriate choice for the patient instead of returning home immediately after discharge. TREATMENT PLAN: Patient will be seen B.I.D during the week and one time per day over the weekend as an inpatient to address the above goals and objectives. INITIAL TREATMENT: Treatment today consisted of the initial evaluation followed by one unit of functional activity. Following treatment the patient was left in chair with call light within reach and chair alarm set. JENNIFER
--- NOTE | 2018-06-21 16:26 | PT.PROG ---
Progress Note Progress Note: S. Patient stated that he is feeling better this afternoon. O. Patient ambulated 450 feet around the nurses station with contact guard assist. Patient was left in bed with alarm and call light. A. Patient tolerated ambulation fair, he required one seated rest break and one standing rest break, he becomes very distracted and becomes impulsive during ambulation. He continues to struggle with balance and safety at this time. P. Continue POC.
[2018-06-21] MEDS: LORazepam Inj(ETOH withdrawal) 2 MG/ML VIAL IVP PRN (23:04)
[2018-06-22] MEDS: HYDROcodone-APAP 10 MG-325 MG TABLET PO PRN ×3 (01:50→10:12)
[2018-06-22] MEDS: LORazepam Inj(ETOH withdrawal) 2 MG/ML VIAL IVP PRN ×7 (01:52→13:44)
[2018-06-22] MEDS: CYCLOBENZAPRINE 10 MG TABLET PO SCH ×3 (08:49→20:14)
[2018-06-22] MEDS: ENOXAPARIN SODIUM 40 MG/0.4 ML SYRINGE SUBCUT SCH (08:49)
[2018-06-22] MEDS: GABAPENTIN 300 MG CAPSULE PO SCH ×3 (08:49→20:14)
[2018-06-22] MEDS: POTASSIUM CHLORIDE 20 MEQ TAB PO SCH ×2 (08:49→20:14)
[2018-06-22] MEDS: PANTOPRAZOLE IV 40 MG VIAL IVP SCH (08:50)
[2018-06-22] MEDS: FLUoxetine 20 MG CAPSULE PO SCH (08:50)
[2018-06-22] MEDS: Multivitamin Tab 1 TAB PO SCH (08:50)
[2018-06-22] MEDS: QUEtiapine Tab 25 MG TAB PO SCH ×2 (10:12→20:14)
[2018-06-22] MEDS ORDERED: Sodium Chloride 0.9% 500 ML ONE (11:18)
--- NOTE | 2018-06-22 11:29 | PDOC(PROG) ---
Interval History: Patient is always off his Precedex drip but now he is scoring the in the 30s and 40s with his alcohol detox he is been receiving Ativan continuously he has delirium very unstable on his gait is status post neck surgery. Objective : Data - Labs CBC and BMP: 06/21/18 03:53 06/21/18 03:53 Objective : Exam - Respiratory Respiratory Exam: Clear to Auscultation - Bilaterally, Breathing Non Labored, Normal To Percussion, Normal to Percussion and Palpation - Cardiovascular Cardiovascular Exam: RRR, No Murmur, No Clicks, No Gallops, No Rubs, PMI Non- Displaced - GI/Abdominal GI/Abdominal Exam: Normal Bowel Sounds, Non Tender, Non Distended, Soft, No Masses, No Hepatomegaly, No Splenomegaly, No Organomegaly - Extremities Extremities Exam: No Clubbing Present, No Edema Present, No Cyanosis Present - Neurological Neurological Exam: No Facial Droop, Speech Intact / Clear Assessment and Plan - Patient Problems (1) Alcohol withdrawal Current Visit: Yes Status: Acute Comment: Patient is scoring on his CIWA scale receiving multiple doses of Ativan if this does not work, we will have to use a Precedex drip again he is very unstable on his gait he is status post neck surgery with high fall risk added some Seroquel 50 twice a day as recommended by eICU discussed with nursing Code(s): F10.239 - Alcohol dependence with withdrawal, unspecified Qualifiers: Complication of substance-induced condition: with delirium Qualified Code(s): F10.231 - Alcohol dependence with withdrawal delirium (2) DMII (diabetes mellitus, type 2) Current Visit: Yes Status: Acute Code(s): E11.9 - Type 2 diabetes mellitus without complications Qualifiers: Diabetes mellitus long-term insulin use: without long-term use Diabetes mellitus complication status: without complication Qualified Code(s): E11.9 - Type 2 diabetes mellitus without complications (3) S/P cervical spinal fusion Current Visit: Yes Status: Acute Comment: Deferred to the neurosurgical team Code(s): Z98.1 - Arthrodesis status
--- NOTE | 2018-06-22 11:49 | PT.PROG ---
Progress Note Progress Note: S: Pt is willing to participate with therapy but seems confused as his conversations are not making a lot of sense. O: Pt was up in chair - cervical collar placed and gait belt placed around pt prior to pt transferring from a seated to standing position - pt required CGA x 2 for safety and max v/c was used to get pt to properly push up from chair but pt still unable to complete transfer in correct manner. Pt ambulated with CGA x 2 for safety and use of FWW. Pt stopped multiple times with ambulation to talk and at times would get confused and start to get walker out too far in front and lean forward. Pt required a seated rest break after 100 ft. x 5 minutes. Pt required max cuing to transfer correctly from w/c to stand. Pt ambulated an additional 50ft to his room. Once in his room, pt stated that he needed to use the bathroom - transferred into the bathroom and sat on the toilet without removing his shorts and brief. Attempted to cue pt to remove brief and shorts if he wanted to use the bathroom but instead, pt removed sock and appeared confused. Pt required 5 attempts to put his sock back on independently and then got up from the toilet and tried to walk out of the room in order to help "put air in a tire". Nursing staff came in and helped PT place pt back in bed. A: Pt appears very confused at times and seems to be having difficulties with processing - recommend cognitive evaluation to assess further. Pt remains very unsafe at this time and continues to require an assist of 2 for safety with basic ambulatory activity. P: Continue per POC. Pt is not safe to return home. Recommend cognitive testing to further evaluate pt's processing.
[2018-06-22] MEDS: Dexmedetomidine/NS 400 MCG/100 ML INFUS..BTL IV SCH ×4 (11:50→23:02)
[2018-06-22] MEDS: Sodium Chloride 0.9% 500 ML PRIMARY IV SCH (11:50)
--- NOTE | 2018-06-22 12:58 | NEURO.PROG ---
Subjective Post Op Day: 11/16 Additional Details: Awake, speech normal, confused, hallucinating. Moving all extremities. Back on Presedex gtt; still undergoing alcohol withdrawal. PLAN: Continue supportive care. Objective : Data - Labs CBC and BMP: 06/21/18 03:53 06/21/18 03:53 - Vital Signs Vital Signs and I&O: Vital Signs - Last Taken Temperature 98.7 F 06/22/18 12:00 Pulse Rate 98 06/22/18 12:00 Respiratory Rate 20 06/22/18 12:00 Blood Pressure 136/83 06/22/18 12:00 Pulse Ox 96 06/22/18 12:00 Intake and Output (24hr x 4 totals) 06/20/18 06/21/18 06/22/18 06/23/18 05:59 05:59 05:59 05:59 Intake Total 691 / 691 1997 1020 / 1020 2119 Output Total 494 / 494 551 / 551 Balance 197 / 197 1447 / 1447 1020 / 1020 2119
[2018-06-22] MEDS ORDERED: DIAZEPAM 10 MG/2 ML (5 MG/1 ML) CARPUJECT IVP PRN (15:00)
[2018-06-22] MEDS: ChlordiazePOXIDE Cap 25 MG CAPSULE PO SCH ×2 (15:35→20:14)
[2018-06-22] MEDS ORDERED: LIDOCAINE HCL 2 % 10 ML JELLY URO-JECT TOPICAL PRN (19:27)
[2018-06-23] MEDS: LORazepam Inj(ETOH withdrawal) 2 MG/ML VIAL IVP PRN ×3 (01:04→08:48)
[2018-06-23] MEDS: Dexmedetomidine/NS 400 MCG/100 ML INFUS..BTL IV SCH ×7 (02:34→21:13)
--- NOTE | 2018-06-23 07:06 | NEURO.PROG ---
Subjective Post Op Day: 11 Thomson Catheter: Yes Diet: NPO Ambulating: No Additional Details: Mr Mathews is currently sedated on a Precedex drip following increasing hallucinations and uncontrollable behavior. He is afebrile, VSS and incisions are dry and intact. Plan per hospitalist regarding his detox. Social workers are continuing to work a retirement plan for discharge. Objective : Data - Labs CBC and BMP: 06/21/18 03:53 06/21/18 03:53 - Vital Signs Vital Signs and I&O: Vital Signs - Last Taken Temperature 98 F 06/23/18 06:05 Pulse Rate 54 L 06/23/18 06:24 Respiratory Rate 16 06/23/18 06:20 Blood Pressure 130/92 06/23/18 06:05 Pulse Ox 93 06/23/18 06:24 Intake and Output (24hr x 4 totals) 06/21/18 06/22/18 06/23/18 06/24/18 05:59 05:59 05:59 05:59 Intake Total 1997 / 1997 1020 / 1020 4623 / 4623 Output Total 551 / 551 1300 / 1300 Balance 1447 / 1447 1020 / 1020 3323 / 3323
[2018-06-23] MEDS: PANTOPRAZOLE IV 40 MG VIAL IVP SCH (08:31)
[2018-06-23] MEDS: ENOXAPARIN SODIUM 40 MG/0.4 ML SYRINGE SUBCUT SCH (08:31)
[2018-06-23] MEDS: Multivitamin Tab 1 TAB PO SCH (08:47)
[2018-06-23] MEDS: QUEtiapine Tab 25 MG TAB PO SCH ×2 (08:47→20:13)
[2018-06-23] MEDS: CYCLOBENZAPRINE 10 MG TABLET PO SCH ×3 (08:47→20:13)
[2018-06-23] MEDS: GABAPENTIN 300 MG CAPSULE PO SCH ×3 (08:47→20:13)
[2018-06-23] MEDS: ChlordiazePOXIDE Cap 25 MG CAPSULE PO SCH ×3 (08:48→20:13)
[2018-06-23] MEDS: POTASSIUM CHLORIDE 20 MEQ TAB PO SCH ×2 (08:48→20:13)
[2018-06-23] MEDS: FLUoxetine 20 MG CAPSULE PO SCH (08:48)
--- NOTE | 2018-06-23 10:52 | PDOC(PROG) ---
Interval History: Patient is sedated but arousable on Precedex drip secondary to recurrent delirium please see my note of yesterday discussed with Dr. Hodgson last night we will the plan is we will try to wake him up again tomorrow morning and see how he does with his EtOH withdrawal syndrome Objective : Data - Labs CBC and BMP: 06/21/18 03:53 06/21/18 03:53 Objective : Exam - General Additional General Exam Details: Sedated but arousable - Eye Eye Exam: Normal Appearance, PERRL - Respiratory Respiratory Exam: Clear to Auscultation - Bilaterally, Breathing Non Labored, Normal To Percussion, Normal to Percussion and Palpation - Cardiovascular Cardiovascular Exam: RRR, No Murmur, No Clicks, No Gallops, No Rubs, PMI Non- Displaced - GI/Abdominal GI/Abdominal Exam: Normal Bowel Sounds, Non Tender, Non Distended, Soft, No Masses, No Hepatomegaly, No Splenomegaly, No Organomegaly - Extremities Extremities Exam: No Clubbing Present, No Edema Present, No Cyanosis Present Assessment and Plan - Patient Problems (1) Alcohol withdrawal Current Visit: Yes Status: Acute Comment: This very difficult case with alcohol withdrawal syndrome patient has had recurring bouts again we will try to decrease the Precedex drips in the morning and hopefully he will not go back in. I discussed this with Dr. Hodgson's I suggested possible transfer see my last night's note he stated we will try to decrease the again tomorrow and see how he does. I believe is very hard alcoholic and most likely as he states the multiple drug use or for many years and might require prolonged sedation considering he is status post neck surgery to keep his neck surgery safe from him falling and being unstable on his gait when he is off his drips he is coherent answers questions appropriately talks on his cell phone constantly calling different people he participates in PT and OT with no neurological deficits and then at least 24 hours off his drips he starts to have hallucinations and picking bugs again Code(s): F10.239 - Alcohol dependence with withdrawal, unspecified Qualifiers: Complication of substance-induced condition: with delirium Qualified Code(s): F10.231 - Alcohol dependence with withdrawal delirium (2) DMII (diabetes mellitus, type 2) Current Visit: Yes Status: Acute Comment: Check sugars before meals at bedtime Code(s): E11.9 - Type 2 diabetes mellitus without complications Qualifiers: 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
[2018-06-23] MEDS: Sodium Chloride 0.9% 500 ML PRIMARY IV SCH (11:50)
[2018-06-24] MEDS: Dexmedetomidine/NS 400 MCG/100 ML INFUS..BTL IV SCH ×4 (00:37→10:57)
[2018-06-24 04:51] LABS: BASOPHILS # (AUTO) 0.06 10*3/UL; BASOPHILS % (AUTO) 1.1 % (0-1); EOSINOPHILS # (AUTO) 0.27 10*3/UL; EOSINOPHILS % (AUTO) 4.8 % (0-8); Hematocrit [HCT] 35.5 % (42.0-52.0); Hemoglobin [HGB] 11.2 g/dL (14.0-18.0); LYMPHOCYTES # (AUTO) 1.45 10*3/uL; MEAN CORPUSCULAR HEMOGLOBIN 27.5 PG (27-31); MEAN CORPUSCULAR HGB CONC 31.5 g/dL (33-37); MEAN PLATELET VOLUME 9.3 FL (7.4-12.2); MONOCYTES # (AUTO) 0.45 10*3/UL (0.3-0.8); NEUTROPHILS # (AUTO) 3.37 10*3/UL; NEUTROPHILS % (AUTO) 60.1 % (50-80); RED BLOOD COUNT 4.08 10^6/uL (4.70-6.10)
[2018-06-24 05:01] LABS: BLOOD UREA NITROGEN 9 mg/dL (7-22); BUN/CREATININE RATIO 12.85 (6-20); SERUM ALBUMIN 3.6 g/dL (3.5-4.8)
[2018-06-24 05:08] LABS: PLATELET MORPHOLOGY COMMENT NORMAL MORPHOLOGY (NORM); RBC MORPHOLOGY COMMENT NORMAL MORPHOLOGY (NORM); WBC MORPHOLOGY COMMENT NORMAL MORPHOLOGY (NORM)
[2018-06-24] MEDS: HYDROcodone-APAP 10 MG-325 MG TABLET PO PRN ×4 (06:36→23:03)
[2018-06-24] MEDS: Sodium Chloride 0.9% 500 ML PRIMARY IV SCH (07:08)
[2018-06-24] MEDS: GABAPENTIN 300 MG CAPSULE PO SCH ×3 (08:21→20:40)
[2018-06-24] MEDS: QUEtiapine Tab 25 MG TAB PO SCH ×2 (08:22→20:17)
[2018-06-24] MEDS: ChlordiazePOXIDE Cap 25 MG CAPSULE PO SCH ×3 (08:22→20:17)
[2018-06-24] MEDS: Multivitamin Tab 1 TAB PO SCH (08:22)
[2018-06-24] MEDS: ENOXAPARIN SODIUM 40 MG/0.4 ML SYRINGE SUBCUT SCH (08:22)
[2018-06-24] MEDS: FLUoxetine 20 MG CAPSULE PO SCH (08:22)
[2018-06-24] MEDS: CYCLOBENZAPRINE 10 MG TABLET PO SCH (08:22)
[2018-06-24] MEDS: POTASSIUM CHLORIDE 20 MEQ TAB PO SCH ×2 (08:22→20:16)
[2018-06-24] MEDS: PANTOPRAZOLE IV 40 MG VIAL IVP SCH (08:22)
[2018-06-24] MEDS: LORazepam Inj(ETOH withdrawal) 2 MG/ML VIAL IVP PRN ×2 (08:57→20:28)
--- NOTE | 2018-06-24 16:21 | OTI REPORT ---
Thank you for the referral of Keith Mathews. He was seen on 06/21/18 for an occupational therapy inpatient evaluation status post cervical fusion. SUBJECTIVE: The patient is a 57-year-old male who is being seen secondary to having neck surgery. Per staff report, he has been detoxing and having a lot of difficulty coming out of anesthesia. He has been in the ICU for over a week now. The patient reports that he lives with his . Cognitively the patient was very in and out of reality with his comments. He kept reporting that he was going to go home and get on his [employer] and was not talking about making good decisions. PAST MEDICAL HISTORY: Past medical history can be found in the patient's medical record. OBJECTIVE FINDINGS: Pain: The patient rated his pain as a 6/10 on the verbal analog scale (0=no pain, 10=worst pain). After his brace was put on, he states his pain was a 4/10. Range of motion: Upper extremity active range of motion for bilateral shoulders is 0 to 120 degrees. Abduction is 0 to 90 degrees. External rotation is to 40 degrees. Activities of daily living: The patient sat in chair and worked on dressing tasks. He needed mod assist for lower extremity dressing. At this time he is not necessarily cognizant enough to learn to use adaptive devices. He is very impulsive with his movements and needed cues to follow his neck precautions to try to reduce any further damage from the fusion and increased movement. We did practice having him dress lower extremities with mod assist including socks. He needed min assist to dress upper extremities. The patient needed max assist to don neck brace independently and safely. Transfers: The patient required contact guard to min assist for sit to stand transfer. The patient required min assist and verbal cues for safety for functional balance at sink ASSESSMENT: The patient may possibly undergo further cognitive testing once his medications are stable. Problem List: Impulsivity Decreased ability to complete ADLs Decreased upper extremity range of motion Decreased ability to complete functional transfers Short-Term Goals: To be met by discharge from inpatient: Patient will be able to dress self independently after set up. Patient will be able to complete all functional transfers including toilet and shower with stand by assist. Patient will be able to tolerate 10 minutes of functional stand activity without loss of balance. Patient will follow neck precautions during all ADLs. Long-Term Goals: To be met following discharge from inpatient: Patient demonstrates a need for 24-hour care. If he makes improvements we will look at him possibly going home independent and safe with ADLs and functional tasks. TREATMENT PLAN: Patient will be seen B.I.D during the week and one time per day over the weekend as an inpatient to address the above goals and objectives. INITIAL TREATMENT: Treatment today consisted of the initial evaluation activities only. Following treatment the patient was transferred back to chair. JENNIFER
--- NOTE | 2018-06-24 17:33 | NEURO.PROG ---
Subjective Post Op Day: 18/01 Additional Details: Patient seen earlier this morning. Awake and conversant, but confused. Moving all extremities. Still on Presedex gtt at a low dose, now on Seroquel. Continue supportive care. Objective : Data - Labs CBC and BMP: 06/24/18 03:56 06/24/18 03:56 - Vital Signs Vital Signs and I&O: Vital Signs - Last Taken Temperature 99.1 F 06/24/18 17:00 Pulse Rate 112 H 06/24/18 17:00 Respiratory Rate 18 06/24/18 17:00 Blood Pressure 133/100 06/24/18 17:00 Pulse Ox 93 06/24/18 17:00 Intake and Output (24hr x 4 totals) 06/22/18 06/23/18 06/24/18 06/25/18 05:59 05:59 05:59 05:59 Intake Total 1020 / 1020 4623 / 4623 1683 / 1683 270 / 270 Output Total 1300 / 1300 1500 / 1500 Balance 1020 / 1020 3323 / 3323 183 / 183 270 / 270
[2018-06-24] MEDS ORDERED: METOPROLOL TARTRATE 5 MG/5 ML VIAL IVP ONE (18:40)
[2018-06-24 19:24] LABS: BILIRUBIN,URINE NEGATIVE (NEG); CLARITY,URINE CLEAR (CLEAR); COLOR,URINE YELLOW (Y); GLUCOSE, URINE (UA) NEGATIVE (NEG); OCCULT BLOOD,URINE SMALL (NEG); PH,URINE 5.5 (5.0-8.5); PROTEIN,URINE NEGATIVE (NEG); UROBILINOGEN,URINE 0.2 EU/dL (0.2)
[2018-06-24 19:31] LABS: RENAL EPITHELIAL CELLS,URINE FEW; SQUAMOUS EPITHELIAL CELL,UR RARE; URINE SAMPLE TYPE CATH SPECIMEN; WBC,URINE 20-30
[2018-06-24 19:32] LABS: BACTERIA,URINE FEW; URINE CASTS RARE
--- NOTE | 2018-06-24 21:08 | PDOC(PROG) ---
Date of Service: 06/24/18 Time of Service: 21:03 Interval History: patient seen, evaluated through the day, discussed with RN multiple times. patient confusion is getting a bit better--knew he was in the [facility] no chest pain, no SOB, no nausea or vomiting off precedex since 1 PM low grade temps--UA suggestive of UTI. Objective : Data - Labs CBC and BMP: 06/24/18 03:56 06/24/18 03:56 Additional Lab Results: 06/24/18 17:22 Urine Occult Blood Small H Ur Leukocyte Esterase Small Urine RBC 5-10 Urine WBC 20-30 Ur Squamous Epith Cells Rare Urine Bacteria Few Ur Culture Indicated? Culture set Objective : Exam - General General Appearance: No Acute Distress, Cooperative Additional General Exam Details: Vital Signs - Last Taken Temperature 99.1 F 06/24/18 20:00 Pulse Rate 106 H 06/24/18 20:00 Respiratory Rate 16 06/24/18 20:00 Blood Pressure 123/87 06/24/18 20:00 Pulse Ox 96 06/24/18 20:00 - Eye Eye Exam: No Scleral Icterus - ENT ENT Exam: Mucous Membranes Moist - Neck Neck Exam: JVP is not Raised - Respiratory Respiratory Exam: Breathing Non Labored, Coarse Breath Sounds - Cardiovascular Cardiovascular Exam: RRR, No Murmur, No Clicks, No Gallops, No Rubs, Tachycardia, No JVD - GI/Abdominal GI/Abdominal Exam: Normal Bowel Sounds, Non Tender, Non Distended, Soft - Extremities Extremities Exam: No Clubbing Present, No Edema Present, No Cyanosis Present - Neurological Neurological Exam: Alert, No Facial Droop, Speech Intact / Clear, Moves All Extremities Equally - Psychiatric Psychiatric Exam: Anxious Assessment and Plan - Patient Problems (1) Alcohol withdrawal Current Visit: Yes Status: Acute Code(s): F10.239 - Alcohol dependence with withdrawal, unspecified Qualifiers: Complication of substance-induced condition: with delirium Qualified Code(s): F10.231 - Alcohol dependence with withdrawal delirium (2) DMII (diabetes mellitus, type 2) Current Visit: Yes Status: Acute Code(s): E11.9 - Type 2 diabetes mellitus without complications Qualifiers: Diabetes mellitus web master insulin use: without prison use Diabetes mellitus complication status: without complication Qualified Code(s): E11.9 - Type 2 diabetes mellitus without complications (3) S/P cervical spinal fusion Current Visit: Yes Status: Acute Code(s): Z98.1 - Arthrodesis status (4) UTI (urinary tract infection) Current Visit: Yes Status: Acute Code(s): N39.0 - Urinary tract infection, site not specified Qualifiers: Urinary tract infection type: acute cystitis Hematuria presence: without hematuria Qualified Code(s): N30.00 - Acute cystitis without hematuria - Assessment / Plan Additional Assessment/Plan Details: start rocephin stop precedex, continue librium, CIWA culture of urine pending. labs in AM web master thiamine hoping he will improve from withdrawal.
[2018-06-24] MEDS ORDERED: cefTRIAXone Inj 2 GM in Sodium Chloride 0.9% 100 ML IV SCH (21:15)
[2018-06-25] MEDS: Sodium Chloride 0.9% 500 ML PRIMARY IV SCH (00:24)
[2018-06-25] MEDS: HYDROcodone-APAP 10 MG-325 MG TABLET PO PRN ×5 (02:37→22:56)
[2018-06-25] MEDS: PANTOPRAZOLE IV 40 MG VIAL IVP SCH (09:18)
[2018-06-25] MEDS: Multivitamin Tab 1 TAB PO SCH (09:19)
[2018-06-25] MEDS: GABAPENTIN 300 MG CAPSULE PO SCH ×3 (09:19→20:57)
[2018-06-25] MEDS: FLUoxetine 20 MG CAPSULE PO SCH (09:19)
[2018-06-25] MEDS: QUEtiapine Tab 25 MG TAB PO SCH ×2 (09:19→20:57)
[2018-06-25] MEDS: ENOXAPARIN SODIUM 40 MG/0.4 ML SYRINGE SUBCUT SCH (09:19)
[2018-06-25] MEDS: ChlordiazePOXIDE Cap 25 MG CAPSULE PO SCH (09:19)
[2018-06-25] MEDS: POTASSIUM CHLORIDE 20 MEQ TAB PO SCH (09:19)
[2018-06-25] MEDS ORDERED: ONDANSETRON 4 MG/2 ML VIAL IVP PRN (09:45)
[2018-06-25] MEDS ORDERED: DOCUSATE 100 MG CAPSULE PO PRN (09:45)
[2018-06-25] MEDS ORDERED: LORazepam Inj(ETOH withdrawal) 2 MG/ML VIAL IVP PRN (09:45)
[2018-06-25] MEDS ORDERED: LIDOCAINE W/ SODIUM BICARB 0.5 ML SYR SUBD PRN (09:45)
--- NOTE | 2018-06-25 13:30 | DI ---
CT CTA Chest Non-Coronary WWO 06/25/2018 11:35 AM History: [facility] [place] ^tachycardia, hypoxia, recent neck surgery Comparison: Noncontrast chest CT from 06/17/2018. Procedure: CT angiography of the pulmonary arteries was performed after the administration of 65 mL o f Ultravist 370 intravenous contrast. Extravasation of approximately 10 mL of intravenous contrast oc curred during the examination. Surgical consultation was not obtained as there were no immediate sign s of severe extravasation injury. Physical exam and vitals were stable at the time of release from [facility] Radiology Department. The referring physician Dr. Wyman of Internal Medicine was also notified at 13: 00 hrs on the day of the exam. Findings: There is normal opacification of the pulmonary arteries with no evidence of filling defect. Evaluation of the lungs demonstrates patchy dependent right upper lobe and bilateral lower lobe grou ndglass opacities are present. A small peripheral area of consolidation and airspace disease is noted in the posterior basal segment of the right lower lobe. There is no pneumothorax or pleural effusion . No pulmonary nodules are noted. The airways are patent with no endobronchial lesion. There is no mediastinal or hilar lymphadenopathy. The aorta and branch vessels demonstrate normal cou rse and caliber. The main pulmonary artery is dilated at 3.7 cm. There are atheromatous coronary ap ry calcifications. Heart size is within normal limits with no pericardial effusion. The thyroid exhib its normal CT morphology. The visualized upper abdominal structures are notable for gastric bypass surgery. The osseous structures notable for postsurgical changes consistent with anterior and posterior fusion of the cervicothoracic spine. There is no evidence of acute or healing rib fractures. Impression: 1. No main or segmental pulmonary embolism. 2. Patchy areas of groundglass attenuation in a dependent distribution with an area of airspace disea se in the posterior basal segment of the right lower lobe. Although an infectious etiology could have a similar appearance, aspiration pneumonia should be considered in the differential. 3. The main pulmonary artery is dilated, a finding associated with pulmonary artery hypertension. These findings were discussed telephonically with Dr. Wyman of Internal Medicine at 13:30 hrs on the da y of the exam.
--- NOTE | 2018-06-25 14:42 | PDOC(PROG) ---
Date of Service: 06/25/18 Time of Service: 14:35 Interval History: feels better, knows he his in hospital today for neck procedures. not agitated. ambulated with therapy today. still has tachycardia. Objective : Data - Labs CBC and BMP: 06/24/18 03:56 06/24/18 03:56 Additional Lab Results: urine culture negative thus far, no growth today. - Imaging CT Scan Status: Image Reviewed by Me (I looked at the images for the CT scan of the chest and discussed with radiology. There are some findings that suggest possible aspiration pneumonitis.) Objective : Exam - General General Appearance: No Acute Distress, Cooperative Additional General Exam Details: Vital Signs - Last Taken Temperature 98.5 F 06/25/18 08:00 Pulse Rate 110 H 06/25/18 13:00 Respiratory Rate 20 06/25/18 08:00 Blood Pressure 142/90 06/25/18 08:00 Pulse Ox 95 06/25/18 13:00 - Head Head Exam: Normal Inspection, Normocephalic, Atraumatic - Eye Eye Exam: No Scleral Icterus - ENT ENT Exam: Mucous Membranes Moist - Neck Neck Exam: JVP is not Raised - Respiratory Respiratory Exam: Breathing Non Labored, Coarse Breath Sounds - Cardiovascular Cardiovascular Exam: No Murmur, No Clicks, No Gallops, No Rubs, Tachycardia, No JVD - GI/Abdominal GI/Abdominal Exam: Non Tender, Non Distended, Soft - Extremities Extremities Exam: No Clubbing Present, No Edema Present, No Cyanosis Present - Neurological Neurological Exam: Alert, Oriented x 3, No Facial Droop, Speech Intact / Clear, Moves All Extremities Equally Assessment and Plan - Patient Problems (1) Aspiration pneumonitis Current Visit: Yes Status: Acute Code(s): J69.0 - Pneumonitis due to inhalation of food and vomit (2) Alcohol withdrawal Current Visit: Yes Status: Acute Code(s): F10.239 - Alcohol dependence with withdrawal, unspecified Qualifiers: Complication of substance-induced condition: with delirium Qualified Code(s): F10.231 - Alcohol dependence with withdrawal delirium (3) DMII (diabetes mellitus, type 2) Current Visit: Yes Status: Acute Code(s): E11.9 - Type 2 diabetes mellitus without complications Qualifiers: Diabetes mellitus correction insulin use: without correction use Diabetes mellitus complication status: without complication Qualified Code(s): E11.9 - Type 2 diabetes mellitus without complications (4) S/P cervical spinal fusion Current Visit: Yes Status: Acute Code(s): Z98.1 - Arthrodesis status (5) UTI (urinary tract infection) Current Visit: Yes Status: Ruled-out Code(s): N39.0 - Urinary tract infection, site not specified Qualifiers: Urinary tract infection type: acute cystitis Hematuria presence: without hematuria Qualified Code(s): N30.00 - Acute cystitis without hematuria (6) S/P gastric bypass Current Visit: Yes Status: Acute Code(s): Z98.84 - Bariatric surgery status - Assessment / Plan Additional Assessment/Plan Details: no growth to gram stain on urine, so doubt UTI given low grade temperatures, which are normalized today, but with persistent tachycardia and oxygen requirement, CT was done to look for PE--negative for that, but I think clinical picture and radiographic findings are most consistent with an aspiration pneumonitis. will change antibiotics to augmentin and treat for 5 to 7 days and discontinue PT and OT gradually reduce librium--start at 25 mg BID transfer to floor status possible discharge tomorrow to [facility] for further PT/OT in [place] tomorrow?
[2018-06-25] MEDS ORDERED: Amoxicill/Clav 875/125mg Tab 1 TAB TAB PO ONE (14:43)
--- NOTE | 2018-06-25 14:45 | PTI REPORT ---
Thank you for the referral of Keith Mathews. He was seen on 06/25/18 for an inpatient evaluation status post cervical fusion. SUBJECTIVE: The patient is a 57-year-old male who underwent a cervical fusion with an anterior approach on 06/08/2018 and then with a posterior approach on 06/10/2018. The patient has been in the ICU since his second surgery due to detoxing. The patient was being seen by physical therapy at the end of last week (06/21-06/22) but did have a change in status and was withheld until today for therapy. The patient states that he is doing better and he is very willing to work with therapy. The patient is from [place], [place] where he lives with his . He is hoping to get back into the [place] area to be closer to family to finish with his rehab. PAST MEDICAL HISTORY: Past medical history can be found in the patient's medical record. OBJECTIVE FINDINGS: General observations: The patient's oxygen saturation at rest was at 87%. Per nursing report they have had to put him on and off oxygen, depending on how he is doing. She states he has primarily had to use it at night. At times when he is up and about his oxygen saturation does drop down. The patient was alert upon PT arrival. Bed mobility: The patient was able to transfer from supine to seated edge of bed with stand by assist x1 for safety. The patient demonstrated good seated edge of bed balance and was able to don his Hawley cervical collar with minimal cueing. Transfers: A gait belt was placed around the patient and he was able to transfer from a seated to standing position with contact guard assist x1 for safety. The patient demonstrated fair initial standing balance and did require hand hold assist x2 on the wheeled walker. Once back in his room, the patient was able to transfer into his chair. He did require verbal cueing for safety awareness in order to reach back for his chair. Ambulation: The patient ambulated 150 feet safely with contact guard assist x1. The patient is able to use the front wheeled walker correctly and demonstrated improved gait speed from our previous evaluation a few days ago. Strength: A manual muscle test was performed for bilateral lower extremities. The patient demonstrates 4/5 bilateral lower extremity strength. Once the patient was seated back in his chair, we did check his vitals. The patient's oxygen saturation was ranging from 86-89%. His heart rate was 130-140 beats per minute. The patient was placed back on his oxygen and prompted for breathing techniques. Nursing staff and doctor were notified of his change after ambulatory activity. ASSESSMENT: The patient has fair rehab potential secondary to his age and past medical history. Problem List: Generalized weakness Decreased endurance Patient is status post cervical fusion Short-Term Goals: To be met by discharge from inpatient: Patient will be able to ambulate 150 feet safely and independently with front wheeled walker. Patient will be able to ascend and descend at least five stairs safely and independently with front wheeled walker. Patient will be able to tolerate 30 minutes of physical therapy activity for strengthening of lower extremities and walking while maintaining oxygen saturation above 90%. Long-Term Goals: To be met following discharge from inpatient: Staff is looking into getting the patient into a further rehabilitation center which would be very appropriate for the patient to continue to rehab to ensure that he is safe to return back home. TREATMENT PLAN: Patient will be seen B.I.D during the week and one time per day over the weekend as an inpatient to address the above goals and objectives. INITIAL TREATMENT: Treatment today consisted of the initial evaluation. Following treatment the patient left in chair with chair alarm set. Nursing staff and doctor were present and the patient was left with them. The patient was issued a front wheeled walker as he is much safer ambulating with this assistive device and it will be appropriate as he continues to improve his strength and mobility. JENNIFER
--- NOTE | 2018-06-25 15:03 | OTI REPORT ---
Thank you for the referral of Keith Mathews. He was seen on 06/25/18 for an occupational therapy inpatient evaluation status post cervical fusion. SUBJECTIVE: The patient is a 57-year-old male who is being seen secondary to having an anterior and a posterior cervical fusion starting on June 10, 2018. He has been in the ICU for several days now. There was only one day that occupational therapy was able to see the patient secondary to him always coming to a point where nursing had to medicate him secondary to his behavior and pain that he was experiencing from the neck surgery. The patient is from [place], [place]. His main goal is to get back to [place]. He is very open to going to the [facility] in [place] to help him recover from his neck surgery. Prior to admission the patient lived at home with his . He reports that he was independent with ADLs; he liked to ride his Jim and did most things independently. PAST MEDICAL HISTORY: Past medical history can be found in the patient's medical record. OBJECTIVE FINDINGS: General observations: The patient was alert and oriented to place, date, and reason for hospitalization. The patient does demonstrate some slight impulsivity and moderate safety awareness difficulties. He would benefit from more assessment testing such as the MOCA. Activities of daily living: The patient was able to demonstrate donning and doffing his socks independently. He was able to don his neck brace after verbal cues independently. Bed mobility: The patient is able to come from supine to sit with increased time. He was able to sit edge of bed x10 minutes while completing functional reaching tasks. Range of motion: The patient has approximately 120 degrees of active shoulder flexion. Strength: Strength was not assessed secondary to the patient's cervical fusion and no lifting precautions. Transfers: The patient was able to complete a toilet transfer with stand by assist. He does need verbal cues and is a little impulsive with functional transfers. He required verbal cues to reach back before sitting on the surface he was sitting on. He needed cues to continue to keep the walker in front of him when turning and sitting in a chair as well as going into the bathroom. Pain: The patient reports a pain level of 5/10 on the verbal analog scale (0=no pain, 10=worst pain). ASSESSMENT: Pt. would benefit from skilled therapy to further address his cognition and processing abilities. At this time it is recommended that he be discharged with assistance for ADL's and care. He appears that he would need assistance with medication management, further safety awareness training and overall safety and independence with functional transfers, and performing dynamic ADLs. Problem List: Decreased safety awareness, possible cognitive processing deficits Decreased upper extremity range of motion Decreased activity tolerance. Decreased safety with transfers Short-Term Goals: To be met by discharge from inpatient: Patient will be able to dress self independently including set up. Patient will complete all toilet and shower transfers with stand by assist. Patient will be able to increase activity tolerance to 15 minutes of functional stand activity without loss of balance or fatigue. Pt. to complete MOCA and/or CPT testing to address cognitive levels. Long-Term Goals: To be met following discharge from inpatient: Patient will be discharged to assisted living and will continue with rehab to increase his independence with ADLs and functional tasks. TREATMENT PLAN: Patient will be seen B.I.D during the week and one time per day over the weekend as an inpatient to address the above goals and objectives. INITIAL TREATMENT: Treatment today consisted of the initial evaluation. It was observed that the patient is having some issues with safety awareness and impulsivity with his functional transfers. The patient does need verbal cues to slow down. MTDD
--- NOTE | 2018-06-25 16:03 | PT.PROG ---
Progress Note Progress Note: S. Patient stated that he is feeling better today. O. Patient ambulated 450 feet around the nurses station and back to his room where he was left with OT for further therapy. A. Patient tolerated ambulation well, he continues to require min assist with balance during ambulation. He would continue to benefit from skilled care at this time. P. Continue POC.
--- NOTE | 2018-06-25 16:07 | OT.PROG ---
Progress Note Progress Note: S:pt reported he believes he may leave tomorrow. He did relate that he does not have a good memory. O: pt was seen in his room and MOCA administered. He scored a: visuospatial/ executive: 2/5 namin/3 attention: 2/6 Language: 2/3 abstraction: 0/2 delayed recall: 0/5 Orientation: 5/6 Total: A: Pt participated about as well as he could and final results displayed a mod cognitive impairment. P: Continue per POC.
[2018-06-25] MEDS: Amoxicill/Clav 875/125mg Tab 1 TAB TAB PO SCH (20:57)
[2018-06-25] MEDS ORDERED: cefTRIAXone Inj 2 GM in Sodium Chloride 0.9% 100 ML IV SCH (21:15)
[2018-06-26] MEDS: HYDROcodone-APAP 10 MG-325 MG TABLET PO PRN ×5 (03:48→20:49)
--- NOTE | 2018-06-26 06:12 | NEURO.PROG ---
Subjective Post Op Day: 14 Pain Management: PO Thomson Catheter: No Diet: Regular Ambulating: Yes Additional Details: Mr Mathews is awake and alert this morning. Oriented x3 and hoping to get to [place] today. He is afebrile and VSS. Dr. Wyman noted basilar rales and obtained a CT which indicated a probable aspiration pneumonitis per Dr Wyman. He was started on Augmentin. Surgical incisions are dry and intact. Plan to [facility] in [place] today. Objective : Data - Labs CBC and BMP: 06/24/18 03:56 06/24/18 03:56 - Vital Signs Vital Signs and I&O: Vital Signs - Last Taken Temperature 97.6 F 06/26/18 03:01 Pulse Rate 74 06/26/18 03:01 Respiratory Rate 14 06/26/18 03:01 Blood Pressure 112/76 06/26/18 03:01 Pulse Ox 97 06/26/18 03:01 Intake and Output (24hr x 4 totals) 06/24/18 06/25/18 06/26/18 06/27/18 05:59 05:59 05:59 05:59 Intake Total 1683 / 1683 1425 / 1425 2270 / 2270 Output Total 1500 / 1500 1040 / 1040 550 / 550 Balance 183 / 183 385 / 385 1720 / 1720
[2018-06-26] MEDS: Multivitamin Tab 1 TAB PO SCH (08:00)
[2018-06-26] MEDS: ENOXAPARIN SODIUM 40 MG/0.4 ML SYRINGE SUBCUT SCH (08:00)
[2018-06-26] MEDS: QUEtiapine Tab 25 MG TAB PO SCH ×2 (08:01→20:48)
[2018-06-26] MEDS: Amoxicill/Clav 875/125mg Tab 1 TAB TAB PO SCH ×2 (08:01→20:48)
[2018-06-26] MEDS: Thiamine Tab 100 MG TAB PO SCH (08:01)
[2018-06-26] MEDS: FLUoxetine 20 MG CAPSULE PO SCH (08:01)
[2018-06-26] MEDS: GABAPENTIN 300 MG CAPSULE PO SCH ×3 (08:01→20:48)
[2018-06-26] MEDS ORDERED: PANTOPRAZOLE IV 40 MG VIAL IVP SCH (09:00)
--- NOTE | 2018-06-26 10:38 | OT.PROG ---
Progress Note Progress Note: S: pt stated that his L shoulder and back of arm was hurting today. O: tx consisted of bed mobility from supine to EOB, cognitive training for safety and items he needed before standing up. pt was educated on use of neck brace and how to khushboo it, functional ambulation x 80' with FWW and CGA for safety, toilet transfer with use of grab bars, completion of toileting tasks and hygiene independently. A: pt needed reminders for safety. pt stated that he needed to use the bathroom but did not complete any BM or urination. P: continue POC
--- NOTE | 2018-06-26 11:14 | PT AM DAY ---
Diagnosis : Cervical Fusion AM - Physical Therapy S: The patient reports minimal to no pain. O: Transfers were stand by assist for supine to sit and sit to stand. The patient ambulated 450 feet with a four wheeled walker with contact guard assist. We worked on exercises at the railing including mini squats and standing hip abduction exercises x10 repetitions each. A: The patient is doing well with minimal assistance needed at this point. P: Continue seeing patient BID during the week and one time per day over the weekend for transfers, ambulation, and range of motion/strengthening exercises. MTDD
--- NOTE | 2018-06-26 13:24 | DI ---
XR HUMERUS MIN 2VW 06/26/2018 11:07 AM History: [facility] [place]left posterior arm pain Comparison: None. Findings: Portable AP and lateral views of the left humerus are submitted. There is no displaced frac ture or dislocation. Anatomic alignment is maintained and joint spaces are preserved. Early degenerat chacha changes of the acromioclavicular joint are noted. Soft tissues are unremarkable. Impression: 1. No acute osseous abnormality. 2. Early acromioclavicular joint osteoarthritis.
--- NOTE | 2018-06-26 13:37 | PDOC(PROG) ---
Date of Service: 06/26/18 Time of Service: 13:32 Interval History: no chest pain, SOB, or nausea or vomiting. continue augmentin had left posterior arm pain for past week--XR with no fracture. on exam, no ev idence of where contrast infiltrated. was not infiltrated posteriorly. Objective : Data - Labs CBC and BMP: 06/24/18 03:56 06/24/18 03:56 Objective : Exam - General General Appearance: No Acute Distress, Cooperative Additional General Exam Details: Vital Signs - Last Taken Temperature 97.4 F 06/26/18 13:00 Pulse Rate 106 H 06/26/18 13:00 Respiratory Rate 16 06/26/18 10:00 Blood Pressure 150/88 06/26/18 13:00 Pulse Ox 92 06/26/18 13:00 - Eye Eye Exam: No Scleral Icterus - ENT ENT Exam: Mucous Membranes Moist - Neck Neck Exam: JVP is not Raised Additional Neck Exam Details: incisions without erythema. posteriorly, simón still in place, no erythema, no drainage. - Respiratory Respiratory Exam: Clear to Auscultation - Bilaterally, Breathing Non Labored - Cardiovascular Cardiovascular Exam: RRR, No Murmur, No Clicks, No Gallops, No Rubs, No JVD - GI/Abdominal GI/Abdominal Exam: Normal Bowel Sounds, Non Tender, Non Distended, Soft - Extremities Extremities Exam: No Clubbing Present, No Edema Present, No Cyanosis Present - Neurological Neurological Exam: Alert, Oriented x 3, No Facial Droop, Speech Intact / Clear, Moves All Extremities Equally Assessment and Plan - Patient Problems (1) Aspiration pneumonitis Current Visit: Yes Status: Acute Code(s): J69.0 - Pneumonitis due to inhalation of food and vomit (2) Alcohol withdrawal Current Visit: Yes Status: Acute Code(s): F10.239 - Alcohol dependence with withdrawal, unspecified Qualifiers: Complication of substance-induced condition: with delirium Qualified Code(s): F10.231 - Alcohol dependence with withdrawal delirium (3) DMII (diabetes mellitus, type 2) Current Visit: Yes Status: Acute Code(s): E11.9 - Type 2 diabetes mellitus without complications Qualifiers: Diabetes mellitus long-term insulin use: without foster care social worker use Diabetes mellitus complication status: without complication Qualified Code(s): E11.9 - Type 2 diabetes mellitus without complications (4) S/P cervical spinal fusion Current Visit: Yes Status: Acute Code(s): Z98.1 - Arthrodesis status (5) UTI (urinary tract infection) Current Visit: Yes Status: Ruled-out Code(s): N39.0 - Urinary tract infection, site not specified Qualifiers: Urinary tract infection type: acute cystitis Hematuria presence: without hematuria Qualified Code(s): N30.00 - Acute cystitis without hematuria (6) S/P gastric bypass Current Visit: Yes Status: Acute Code(s): Z98.84 - Bariatric surgery status - Assessment / Plan Additional Assessment/Plan Details: aspiration pneumonitis has clinically improved. finish course of augmentin continue PT and OT withdrawal has resolved from alcohol. 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 anticipate discharge to [facility] for rehab tomorrow. orders written, medications reconciled. foster care social worker, would recommend patient get off all narcotics.
--- NOTE | 2018-06-26 15:51 | PT.PROG ---
Progress Note Progress Note: S. Patient stated he would like to go to the therapy gym this afternoon. O. Patient ambulated 175 feet to the therapy gym where he performed seated exercises in the form of; long arc quads, marches, heel toe raises, ball squeezes, clam shells all x 10 bilaterally, sit to stands x 10, box step ups with #3 box x 15. Patient then ambulated 175 feet back to his room where he was left in bed with alarm and call light. A. Patient tolerated therapy well, he was able to perform all exercises with contact guard assist, he would continue to benefit from skilled therapy for safety at this time. P. Continue POC.
--- NOTE | 2018-06-26 17:28 | OT.PROG ---
Progress Note Progress Note: S: pt was talkative today. He reports that he gets to go home tomorrow. O: pt was seen in his room and transferred down to therapy with use of standard walker. Pt completed celeste's to assist with motion and re-establish function in LUE as it has been painful for him lately. He completed putty, powerweb, and digi flex with BUE hands while sitting at table. He returned to his room and completed bed mobility INd. He was left upright in bed with alarm on and call light within reach. A: pt participated well with his transfers today as long as he uses walker. LUE has been painful. P: continue per POC and continue to prepare for d/c.
[2018-06-27] MEDS: HYDROcodone-APAP 10 MG-325 MG TABLET PO PRN ×3 (00:49→09:13)
--- NOTE | 2018-06-27 06:00 | NEURO.PROG ---
Subjective Post Op Day: 15 Pain Management: PO Thomson Catheter: No Flatus: Yes Diet: Regular Ambulating: Yes Additional Details: In rounds with Dr Hodgson this morning Chivo was awake, alert, moving all extremities. He complained of upper and mid back pain from the surgery, otherwise no complaints and anxious to get to [place]. Incisions are dry and intact. Arm and hand strength are bilaterally strong and equal. Plan is to [facility] in [place] today per Dr Wyman. He was given a followup appointment to see Dr Hodgson in [place] on 07/02 Objective : Data - Labs CBC and BMP: 06/24/18 03:56 06/24/18 03:56 - Vital Signs Vital Signs and I&O: Vital Signs - Last Taken Temperature 97 F 06/27/18 02:00 Pulse Rate 85 06/27/18 05:00 Respiratory Rate 16 06/27/18 05:00 Blood Pressure 125/89 06/27/18 05:00 Pulse Ox 94 06/27/18 05:00 Intake and Output (24hr x 4 totals) 06/24/18 06/25/18 06/26/18 06/27/18 05:59 05:59 05:59 05:59 Intake Total 1683 / 1683 1425 / 1425 2270 / 2270 300 / 300 Output Total 1500 / 1500 1040 / 1040 550 / 550 Balance 183 / 183 385 / 385 1720 / 1720 300 / 300
[2018-06-27 06:40] VITALS: BP 145/98; TEMP 97.4; O2SAT 92
[2018-06-27] MEDS: FLUoxetine 20 MG CAPSULE PO SCH (08:28)
[2018-06-27] MEDS: Thiamine Tab 100 MG TAB PO SCH (08:28)
[2018-06-27] MEDS: Multivitamin Tab 1 TAB PO SCH (08:28)
[2018-06-27] MEDS: ENOXAPARIN SODIUM 40 MG/0.4 ML SYRINGE SUBCUT SCH (08:28)
[2018-06-27] MEDS: QUEtiapine Tab 25 MG TAB PO SCH (08:28)
[2018-06-27] MEDS: GABAPENTIN 300 MG CAPSULE PO SCH (08:29)
[2018-06-27] MEDS: Amoxicill/Clav 875/125mg Tab 1 TAB TAB PO SCH (08:29)
[2018-06-27 08:57] VITALS: RESP 18
--- NOTE | 2018-06-27 09:27 | DCSUMMARY ---
Hospitalization Summary Admit Date: 06/10/2018 Discharge Date: 06/27/18 Primary Diagnosis:: status post anterior and posterior cervical surgery Hospital Course: This is a 58-year-old male with chronic neck pain that presented to the hospital on 06/10/2018 for an anterior cervical fusion with plans to do a posterior fusion 2 days later. Please see Dr. Hodgson's notes regarding the procedures performed. The patient did well initially postoperatively from his anterior fusion and it was not clear whether he would proceed with the posterior portion but he decided to do so. Postoperatively after the posterior fusion, the patient had significant delirium. Initially we thought it could even be a serotonin syndrome but as time went on, what we found is that the symptoms were most consistent with alcohol withdrawal and we were able to confirm the patient was drinking about 12 beers per day. He had significant agitation, hallucinations and developed severe alcohol withdrawal with delirium. He was maintained in the ICU through the most of his hospital stay on Precedex, CIWA protocol, vitamin B6, electrolyte replacement, and supportive care until his withdrawal symptoms resolved. About 2 days ago, his Precedex drip was stopped, his CIWA protocol persisted but he scored less and less and required no more no further Ativan or benzodiazepines. He was able to produce pain physical therapy and did very well but needs additional rehabilitation prior to going home. We were able to get disposition with [facility] in [place], [place]. 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 In my mind, observing him, I think he somewhat impulsive. Patient's other medical issues remained stable through the hospital stay. Today, no complaints of chest pain, shortness breath, nausea or vomiting. He did develop low-grade temperatures, none of which reached above 100F, and studies were revealing for pneumonia which I think is aspiration pneumonia. He has been maintained on Augmentin and should finish his course on the . He was negative for pulmonary emboli with a CTA of the chest, and I think this was also the explanation for his tachycardia, the pneumonia that is. He is no longer tachycardic. He complained of some left triceps pain and x-ray revealed no evidence of fracture but there was some acromioclavicular joint osteoarthritis which I think could be the cause of some of that pain. He is able to move his arms freely, equally, and has no compromise in his strength on his left or right upper extremity. Assessment and Plan: 1. As per discharge assessments noted 2. Disposition: Patient is discharged to [facility] in [place], [place] 3. Condition on discharge, stable and improved. 4. Diet: regular diet, I advised patient no alcohol 5. Activities: Per neurosurgery instructions and physical therapy 6. Follow-Up: 1. Primary physician or provider assigned at [facility] 2. The patient visit with Dr. Hodgson is arranged 07/02/2018 is my understanding for review and recheck of wounds as well as staple removal 7. Medications at the Time of Discharge: Home Medications Medication Instructions Recorded Confirmed cyclobenzaprine 10 mg tablet 10 mg PO TID 02/19/18 06/10/18 Multivitamin [Multi-Vitamin Daily] 1 tab PO DAILY 06/07/18 06/10/18 Gabapentin 600 mg PO BID 06/18/18 06/18/18 Amoxicill/Clav 875/125mg 1 tab PO BID tab 06/26/18 [Augmentin 875/125mg] HYDROcodone/APAP 10/325 Tab 1 tab PO Q4H PRN #60 tab 06/26/18 [Hydrocodon-Acetaminoph 10/325 Tab] Oxycodone Myristate [Xtampza ER] 27 mg PO BID #60 cap.spr.12 06/26/18 Thiamine HCl [Vitamin B-1] 100 mg PO DAILY #30 tab 06/26/18 8. Time, care, counseling and coordination of care for this discharge is less than 30 minutes. Exam - Vitals Vital Signs: Vital Signs Temperature 97.4 F Temperature Source Temporal Artery Scan Pulse Rate [Apical] 86 Pulse Rate [Telemetry] 74 Pulse Rate [Pulse Oximeter 93 Right] Pulse Rate [Pulse Oximeter] 86 Pulse Rate [Pulse OX] 85 Pulse Rate 75 Respiratory Rate 18 Blood Pressure [right upper 145/98 arm] Blood Pressure [Left Radial 135/89 Artery] Blood Pressure [Right Calf] 156/91 Blood Pressure [Left Calf] 187/89 Blood Pressure [Right Arm] 132/94 Blood Pressure [Left Arm] 141/91 Blood Pressure 127/55 Pulse Ox [Pulse OX] 96 Pulse Ox 92 Oxygen Flow Rate [Pulse OX] 2 Oxygen Flow Rate 2 Oxygen Delivery Method [Pulse Nasal Cannula OX] Oxygen Delivery Method Room Air Height 5 ft 10 in Weight 212 lb 6.4 oz - General General Appearance: No Acute Distress, Cooperative - Eye Eye Exam: POSITIVE: No Scleral Icterus - ENT ENT Exam: POSITIVE: Mucous Membranes Moist - Neck Neck Exam: Normal Inspection, No Tenderness, No Lymphadenopathy, No Thyromegaly, JVP is not Raised - Respiratory Respiratory Exam: POSITIVE: Clear to Auscultation - Bilaterally, Breathing Non Labored - Cardiovascular Cardiovascular Exam: POSITIVE: RRR, No Murmur, No Clicks, No Gallops, No Rubs, No JVD - GI/Abdominal GI/Abdominal Exam: POSITIVE: Normal Bowel Sounds, Non Tender, Non Distended, So ft - Extremities Extremities Exam: POSITIVE: No Clubbing Present, No Edema Present, No Cyanosis Present - Neurological Neurological Exam: POSITIVE: Alert, Oriented x 3, No Facial Droop, Speech Intact / Clear, Moves All Extremities Equally Data Peritnent Studies: 06/24/18 06/24/18 03:56 03:56 WBC 5.61 Hgb 11.2 L Hct 35.5 L Plt Count 462 H Sodium 142 Potassium 4.2 Chloride 103 Carbon Dioxide 26 Anion Gap 13 BUN 9 Creatinine 0.7 BUN/Creatinine Ratio 12.85 Glucose 137 H Calculated Osmolality 294.0 H Calcium 9.4 Magnesium 1.8 Total Bilirubin 0.3 AST 33 ALT 23 Alkaline Phosphatase 81 Total Protein 6.8 Albumin 3.6 Globulin 3.1 Albumin/Globulin Ratio 1.10 L 06/16/18 23:23 VBG pH 7.47 H VBG pCO2 34 L VBG HCO3 24 VBG Base Excess 1 Procedures: [address] [place] [address] PH: DD: [phone] FAX: [phone] ~DIAGNOSTIC IMAGING REPORT~ Patient: Keith Mathews : 1960 Sex: M Age: 58 Exam Name: XR HUMERUS MIN 2VW Exam Date: 06/26/18 Report # : [id number] CPT Code: 96059 EMR/MR #: [id number] Ordering: ROVERTO HURTADO Admiting: Dr. Raheem Hodgson MD. Primary: NONE,NONE Attending: Dr. Raheem Hodgson MD. Signed XR HUMERUS MIN 2VW 06/26/2018 11:07 AM History: [facility] ^left posterior arm pain Comparison: None. Findings: Portable AP and lateral views of the left humerus are submitted. There is no displaced fracture or dislocation. Anatomic alignment is maintained and joint spaces are preserved. Early degenerative changes of the acromioclavicular joint are noted. Soft tissues are unremarkable. Impression: 1. No acute osseous abnormality. 2. Early acromioclavicular joint osteoarthritis. Dictated By: 06/26/18 1319 GARIMA PARHAM MD. Signed By: 06/26/18 1324 GARIMA PARHAM MD. [address] [facility] [place] [id number] PH: DD: [phone] FAX: [phone] ~DIAGNOSTIC IMAGING REPORT~ Patient: Keith Mathews : 1960 Sex: M Age: 58 Exam Name: CT CTA Chest Non-Coronary [facility] Exam Date: 06/25/18 Report # : [id number] CPT Code: 08631 EMR/MR #: [id number] Ordering: ROVERTO HURTADO Admiting: Dr. Raheem Hodgson MD. Primary: NONE,NONE Attending: Dr. Raheem Hodgson MD. Signed CT CTA Chest Non-Coronary [facility] 06/25/2018 11:35 AM History: [facility] ^tachycardia, hypoxia, recent neck surgery Comparison: Noncontrast chest CT from 06/17/2018. Procedure: CT angiography of the pulmonary arteries was performed after the administration of 65 mL of Ultravist 370 intravenous contrast. Extravasation of approximately 10 mL of intravenous contrast occurred during the examination. Surgical consultation was not obtained as there were no immediate signs of kris re extravasation injury. Physical exam and vitals were stable at the time of release from the Radiology Department. The referring physician Dr. Hurtado of Internal Medicine was also notified at 13:00 hrs on the day of the exam. Findings: There is normal opacification of the pulmonary arteries with no evidence of filling defect. Evaluation of the lungs demonstrates patchy dependent right upper lobe and bilateral lower lobe groundglass opacities are present. A small peripheral area of consolidation and airspace disease is noted in the posterior basal segment of the right lower lobe. There is no pneumothorax or pleural effusion. No pulmonary nodules are noted. The airways are patent with no endobronchial lesion. There is no mediastinal or hilar lymphadenopathy. The aorta and branch vessels demonstrate normal course and caliber. The main pulmonary artery is dilated at 3.7 cm. There are atheromatous coronary artery calcifications. Heart size is within normal limits with no pericardial effusion. The thyroid exhibits normal CT morphology. The visualized upper abdominal structures are notable for gastric bypass surgery. The osseous structures notable for postsurgical changes consistent with anterior and posterior fusion of the cervicothoracic spine. There is no evidence of acute or healing rib fractures. Impression: 1. No main or segmental pulmonary embolism. 2. Patchy areas of groundglass attenuation in a dependent distribution with an area of airspace disease in the posterior basal segment of the right lower lobe. Although an infectious etiology could have a similar appearance, aspiration pneumonia should be considered in the differential. 3. The main pulmonary artery is dilated, a finding associated with pulmonary artery hypertension. These findings were discussed telephonically with Dr. Hurtado of Internal Medicine at 13:30 hrs on the day of the exam. Dictated By: 06/25/18 1310 GARIMA PARHAM MD. Signed By: 06/25/18 1330 GARIMA PARHAM MD. [address] [facility] [place] [id number] PH: DD: [phone] FAX: [phone] ~DIAGNOSTIC IMAGING REPORT~ Patient: Keith Mathews : 1960 Sex: M Age: 57 Exam Name: CT Head WO Contrast Exam Date: 06/17/18 Report # : [id number] CPT Code: 73098 EMR/MR #: [id number] Ordering: Jared Caldwell Admiting: Dr. Raheem Hodgson MD. Primary: NONE,NONE Attending: Dr. Raheem Hodgson MD. ------- Signed CT Head WO Contrast 06/17/2018 9:27 AM History: [facility] ^confusion Comparison: 06/12/2018. Procedure: Noncontrast axial, sagittal, and coronal CT images through the head were obtained. Findings: There is no acute intracranial hemorrhage or extra-axial fluid collection. The ventricles are normal in size and configuration for age. There is normal pyle-white differentiation without focal mass or mass-effect. The visualized portions of the paranasal sinuses are clear. Orbits and facial soft tissues are unremarkable. Review of the osseous structures shows no depressed calvarial fracture or aggressive osseous lesion. The mastoid air cells are clear. Impression: No acute intracranial findings. Consider MRI if there is continuing clinical concern. Dictated By: 06/17/18 1450 GARIMA PARHAM MD. Signed By: 06/17/18 1457 GARIMA PARHAM MD. Patient Problems - Patient Problem List (1) S/P cervical spinal fusion Current Visit: Yes Status: Acute Code(s): Z98.1 - Arthrodesis status Category: Surgical (2) Aspiration pneumonitis Current Visit: Yes Status: Acute Code(s): J69.0 - Pneumonitis due to inhalation of food and vomit Category: Medical (3) Alcohol withdrawal Current Visit: Yes Status: Resolved Code(s): F10.239 - Alcohol dependence with withdrawal, unspecified Qualifiers: Complication of substance-induced condition: with delirium Qualified Code(s): F10.231 - Alcohol dependence with withdrawal delirium Category: Medical (4) DMII (diabetes mellitus, type 2) Current Visit: Yes Status: Acute Code(s): E11.9 - Type 2 diabetes mellitus without complications Qualifiers: Diabetes mellitus intermediate project manager insulin use: without [facility] use Diabetes mellitus complication status: without complication Qualified Code(s): E11.9 - Type 2 diabetes mellitus without complications Category: Medical (5) S/P gastric bypass Current Visit: Yes Status: Acute Code(s): Z98.84 - Bariatric surgery status Category: Surgical
--- NOTE | 2018-06-27 12:03 | PT.PROG ---
Progress Note Progress Note: S. Patient stated that he is ready to go back to [place]. O. Patient ambulated 300 feet around the nurses station and back to his room where he was left with alarm and call light. A. Patient tolerated ambulation well, he was able to ambulate with contact guard assist. He continues to have slight balance deficits and requires verbal cues for safety during transfers and ambulation. P. He would continue to benefit from skilled therapy at the [facility] in [place].
== END 2018-06-27 10:06 | DRG 453 ==
LOC: OPS 04:33 → MED/SURG 15:25 → OPS 06-12 06:15 → MED/SURG 06-12 17:11 → ICU 06-12 19:52 → MED/SURG 06-25 09:21
PROVIDERS: ADMIT Neurological Surgery; ATTEND Neurological Surgery